=== PATIENT | female | born 1980 | race Caucasian/White ===

== ENCOUNTER 2020-03-27 23:28 | Emergency (ER) | payer BC, OTHER ==
--- OUTSIDE RECORDS SUMMARY | 2020-03-27 23:30 | XMS REPORT | Continuity of Care Document ---
:1980 Author Organization [facility] t Address [address] [place] [address] [place] [id number] Care Team Providers Name Role Phone Unavailable Unavailable Unavailable Problems This patient has no known problems. Allergies, Adverse Reactions, Alerts This patient has no known allergies or adverse reactions. Medications This patient has no known medications. Procedures This patient has no known procedures. Results This patient has no known results.
[2020-03-28 00:06] LABS: Absolute Lymphocytes (CBC) 1.4 K/uL (0.7-4.9); Basophils % 0.9 % (0-1.3); Hematocrit 32.4 % (36.0-45.0); Lymphocytes % 26.8 % (15.3-44.8); MPV 7.5 fL (7.6-11.3); Protime INR 1.1
[2020-03-28 00:23] LABS: ALT/SGPT 40 U/L (12-78); AST/SGOT 31 U/L (15-37); Albumin 3.5 g/dL (3.4-5.0); Alkaline Phosphatase 89 U/L (45-117); BUN Blood Urea Nitrogen 10 mg/dL (7-18); Bicarbonate 22 mmol/L (21-32); Bilirubin Direct 0.3 mg/dL (0-0.2); Bilirubin Total 1.5 mg/dL (0.2-1.0); Glucose Level 98 mg/dL (74-106); Magnesium 1.9 mg/dL (1.8-2.4); NT PRO-BNP 30 pg/mL (<125); Potassium 3.6 mmol/L (3.5-5.1); Protein, Total 7.2 g/dL (6.4-8.2); Sodium Level 138 mmol/L (136-145); Troponin (Emerg Dept Use Only) < 0.02 ng/mL (0.0-0.045)
[2020-03-28 00:58] LABS: Barbiturates NEGATIVE (NEGATIVE); Benzodiazepines NEGATIVE (NEGATIVE); Cocaine NEGATIVE (NEGATIVE); METHAMPHETAM NEGATIVE (NEGATIVE); Methadone NEGATIVE (NEGATIVE); Opiates NEGATIVE (NEGATIVE); Phencyclidine NEGATIVE (NEGATIVE); THC Cannibis NEGATIVE (NEGATIVE)
[2020-03-28 01:17] LABS: Urine Blood NEGATIVE (NEG); Urine Glucose NEGATIVE (NEG); Urine Protein NEGATIVE (NEG); Urine Specific Gravity 1.025 (1.005-1.030)
[2020-03-28] MEDS ORDERED: ONDANSETRON 4 MG/2 ML VIAL ONE (01:22)
[2020-03-28] MEDS ORDERED: ACETAMINOPHEN 500 MG TAB ONE (01:33)
[2020-03-28] MEDS ORDERED: KETOROLAC 30 MG/ML INJ ONE (02:15)
--- NOTE | 2020-03-28 03:28 | EDPHYS ---
Physician Documentation [facility] Name: Nena Peterson Age: 39 yrs Sex: Female : 1980 Arrival Date: 03/27/2020 Time: 23:31 Bed 15 Private MD: ED Physician Jose G Loya HPI: 03/27 23:52 This 39 yrs old Female presents to ER via Ambulatory with complaints of Chest mh7 Pain. 23:52 The patient or guardian reports chest pain that is located primarily in the anterior mh7 chest wall, left. Onset: 1 day(s) ago. 23:53 The pain radiates to the left shoulder, left back. Associated signs and symptoms: mh7 Pertinent positives: palpitations, shortness of breath, Pertinent negatives: abdominal pain, cough, diaphoresis, dizziness, headache, lower extremity pain, lower extremity swelling, lightheadedness, nausea, near syncope, recent travel, syncope, vomiting. The chest pain is described as aching, sharp. Duration: The patient or guardian reports multiple episodes, that are intermittent, that wax and wane, with no pattern. Modifying factors: The symptoms are alleviated by nothing. the symptoms are aggravated by nothing. Severity of pain: At its worst the pain was moderate last night, in the emergency department the pain is unchanged. 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 - Social history:: Smoking status: Patient denies any tobacco usage or history of. Patient uses alcohol, but reports only rare drinking. Patient/guardian denies using street drugs. ROS: 23:53 Constitutional: Negative for fever, chills, and weight loss, Eyes: Negative for injury, mh7 pain, redness, and discharge, ENT: Negative for injury, pain, and discharge, Neck: Negative for injury, pain, and swelling, Abdomen/GI: Negative for abdominal pain, nausea, vomiting, diarrhea, and constipation, : Negative for injury, bleeding, discharge, and swelling, MS/Extremity: Negative for injury and deformity, Skin: Negative for injury, rash, and discoloration, Neuro: Negative for headache, weakness, numbness, tingling, and seizure, Psych: Negative for depression, anxiety, suicide ideation, homicidal ideation, and hallucinations, Allergy/Immunology: Negative for hives, rash, and allergies, Endocrine: Negative for neck swelling, polydipsia, polyuria, polyphagia, and marked weight changes, Hematologic/Lymphatic: Negative for swollen nodes, abnormal bleeding, and unusual bruising. Exam: 23:53 Head/Face: Normocephalic, atraumatic. Eyes: Pupils equal round and reactive to light, mh7 extra-ocular motions intact. Lids and lashes normal. Conjunctiva and sclera are non-icteric and not injected. Cornea within normal limits. Periorbital areas with no swelling, redness, or edema. Neck: Trachea midline, no thyromegaly or masses palpated, and no cervical lymphadenopathy. Supple, full range of motion without nuchal rigidity, or vertebral point tenderness. No Meningismus. Chest/axilla: Normal chest wall appearance and motion. Nontender with no deformity. No lesions are appreciated. Cardiovascular: Regular rate and rhythm with a normal S1 and S2. No gallops, murmurs, or rubs. Normal PMI, no JVD. No pulse deficits. Respiratory: Lungs have equal breath sounds bilaterally, clear to auscultation and percussion. No rales, rhonchi or wheezes noted. No increased work of breathing, no retractions or nasal flaring. Abdomen/GI: Soft, non-tender, with normal bowel sounds. No distension or tympany. No guarding or rebound. No evidence of tenderness throughout. Back: No spinal tenderness. No costovertebral tenderness. Full range of motion. Skin: Warm, dry with normal turgor. Normal color with no rashes, no lesions, and no evidence of cellulitis. MS/ Extremity: Pulses equal, no cyanosis. Neurovascular intact. Full, normal range of motion. Neuro: Awake and alert, GCS 15, oriented to person, place, time, and situation. Cranial nerves II-XII grossly intact. Motor strength 5/5 in all extremities. Sensory grossly intact. Cerebellar exam normal. Normal gait. Psych: Awake, alert, with orientation to person, place and time. Behavior, mood, and affect are within normal limits. 23:53 Constitutional: The patient appears in no acute distress, alert, awake, uncomfortable. 03/28 06:11 ECG was reviewed by the Attending Physician. [facility] Vital Signs: 03/27 23:39 BP 175 / 86; Pulse 99; Resp 16 S; Temp 99.9(O); Pulse Ox 99% on R/A; Weight 149.69 kg bb (R); Height 5 ft. 6 in. (167.64 cm) (R); Pain 5/10; 03/28 01:19 BP 152 / 82; Pulse 86; Resp 18; Pulse Ox 99% on R/A; mg2 02:10 BP 132 / 56; Pulse 81; Resp 18; Pulse Ox 100% on R/A; mg2 03:16 BP 125 / 46; Pulse 77; Resp 18; Pulse Ox 99% on R/A; mg2 03/27 23:39 Body Mass Index 53.26 (149.69 kg, 167.64 cm) bb MDM: 03/27 23:50 Patient medically screened. [facility] 03/28 03:25 Differential diagnosis: acute myocardial infarction, acute pericarditis, anxiety, [facility] coronary artery disease chest wall pain, costochondritis, esophagitis, myocarditis, pericarditis, pleurisy, pneumonia, pneumothorax, pulmonary embolus. HEART Score: History: Slightly Suspicious (0), ECG: Non specific repolarization disturbance / LBTB / PM (1), Age: < or = 45 years (0), Risk Factors: 1 or 2 risk factors (1), [Obesity] Troponin: < or = 1 x Normal Limit (0), Total Score = 2. Data reviewed: vital signs, nurses notes, lab test result(s), cardiac enzymes, CBC, electrolytes, urinalysis, EKG, radiologic studies, CT scan, plain films. Data interpreted: Pulse oximetry: on room air is 99 %. Interpretation: normal. Counseling: I had a detailed discussion with the patient and/or guardian regarding: the historical points, exam findings, and any diagnostic results supporting the discharge/admit diagnosis, lab results, radiology results, the need for outpatient follow up, to return to the emergency department if symptoms worsen or persist or if there are any questions or concerns that arise at home. Response to treatment: the patient's symptoms have resolved after treatment, the patient's blood pressure is in an acceptable range, mental status has returned to baseline, the patient no longer shows bradycardia, the patient is not short of breath, the patient is not tachycardic, the patient's pain is gone, the patient's temperature has normalized. 03/27 23:51 Order name: Basic Metabolic Panel; Complete Time: 00:24 [facility] 03/27 23:51 Order name: CBC with Diff; Complete Time: 00:14 [facility] 03/27 23:51 Order name: LFT's; Complete Time: 00:24 [facility] 03/27 23:51 Order name: Magnesium; Complete Time: 00:24 [facility] 03/27 23:51 Order name: NT PRO-BNP; Complete Time: 00:24 [facility] 03/27 23:51 Order name: PT-INR; Complete Time: 00:14 [facility] 03/27 23:51 Order name: Troponin (emerg Dept Use Only); Complete Time: 00:24 [facility] 03/27 23:51 Order name: XRAY Chest (1 view) 03/28 00:15 Order name: UDS; Complete Time: 01:07 [facility] 03/28 00:24 Order name: CT Chest For PE Angio [facility] 03/28 00:42 Order name: Urine --Ancillary (enter results); Complete Time: 01:29 03/28 00:42 Order name: Urine Dipstick--Ancillary (enter results); Complete Time: 01:29 03/28 02:02 Order name: Troponin (emerg Dept Use Only): repeat ; Complete Time: 03:22 mg2 03/27 23:51 Order name: EKG; Complete Time: 23:52 [facility] 03/27 23:51 Order name: Cardiac monitoring; Complete Time: 23:53 [facility] 03/27 23:51 Order name: EKG - Nurse/Tech; Complete Time: 23:53 [facility] 03/27 23:51 Order name: IV Saline Lock; Complete Time: 23:53 [facility] 03/27 23:51 Order name: Labs collected and sent; Complete Time: 23:53 [facility] 03/27 23:51 Order name: O2 Per Protocol; Complete Time: 23:53 [facility] 03/27 23:51 Order name: O2 Sat Monitoring; Complete Time: 00:35 mh7 03/27 23:51 Order name: Urine Dipstick-Ancillary (obtain specimen); Complete Time: 00:41 mh7 03/27 23:51 Order name: Urine Test (obtain specimen); Complete Time: 00:41 mh7 EC:11 Rate is 96 beats/min. Rhythm is regular, Normal Sinus Rhythm. QRS [place] is Normal. MS mh7 interval is normal. QRS interval is normal. QT interval is normal. No Q waves. T waves are Normal. No ST changes noted. Clinical impression: NSR w/ Non-specific ST/T Changes. Administered Medications: 00:00 Not Given (patienthad itchiness with this medicine before): morphine 2 mg IVP once; mg2 (PAIN>8) RASS on ADMN: Combtv4, Very Agttd3, Agttd2, Rstlss1, AlertClm0, Drwsy-1, LtSdtn-2, ModSdtn-3, DpSdtn-4, UnArsble-5 x2 00:00 Not Given (Physician Discretion): Zofran (Ondansetron) 4 mg IVP once; over 2 minutes mg2 01:14 Drug: Zofran (Ondansetron) 4 mg Route: IVP; Site: right forearm; mg2 03:16 Follow up: Response: No adverse reaction mg2 01:30 Drug: Tylenol 1000 mg Route: PO; mg2 03:16 Follow up: Response: No adverse reaction mg2 02:07 Drug: TORadol 30 mg Route: IVP; Site: right forearm; mg2 03:16 Follow up: Response: No adverse reaction mg2 Disposition: 03/28/20 03:28 Discharged to Home. Impression: Chest pain, unspecified, Musculoskeletal Pain. - Condition is Stable. - Discharge Instructions: Chest Wall Pain, Rpfm-[id number], Nonspecific Chest Pain, [id number]. - Prescriptions for Ibuprofen 800 mg Oral Tablet - take 1 tablet by ORAL route every 8 hours As needed take with food; 15 tablet. Robaxin 500 mg Oral Tablet - take 2 tablets by ORAL route every 6 hours As needed; 24 tablet. - Medication Reconciliation Form, Thank You Letter, Antibiotic Education, Prescription Opioid Use form. - Follow up: Private Physician; When: 1 - 2 days; Reason: Worsening of condition, Recheck today's complaints, Continuance of care, Re-evaluation by your physician. - Problem is new. - Symptoms have improved. Signatures: Dispatcher [employer] EDMS Jolynn Carbajal RN RN bb Jacob Sow, PLAN CONSULTANT-C PLAN CONSULTANT-Cla1 Gaurav Gimenez RN RN mg2 Jose G Loya MD MD mh7 Corrections: (The following items were deleted from the chart) 03:42 03:28 03/28/2020 03:28 Discharged to Home. Impression: Chest pain, unspecified; mg2 Musculoskeletal Pain. Condition is Stable. Forms are Medication Reconciliation Form, Thank You Letter, Antibiotic Education, Prescription Opioid Use. Follow up: Private Physician; When: 1 - 2 days; Reason: Worsening of condition, Recheck today's complaints, Continuance of care, Re-evaluation by your physician. Problem is new. Symptoms have improved. mh7
--- NOTE | 2020-03-28 03:28 | ER ---
Nurse's Notes [facility] Name: Nena Peterson Age: 39 yrs Sex: Female : 1980 Arrival Date: 03/27/2020 Time: 23:31 Bed 15 Private MD: Diagnosis: Chest pain, unspecified;Musculoskeletal Pain Presentation: 03/27 23:39 Chief complaint: Patient states: she is having chest pain for the last one to two days bb the pain is constant and intermittent goes to her shoulder and her back and she is having intermittent shortness of breath. Coronavirus screen: At this time, the client does not indicate any symptoms associated with coronavirus-19. Ebola Screen: No symptoms or risks identified at this time. Initial Sepsis Screen: Does the patient meet any 2 criteria? No. Patient's initial sepsis screen is negative. Does the patient have a suspected source of infection? No. Patient's initial sepsis screen is negative. Risk Assessment: Do you want to hurt yourself or someone else? Patient reports no desire to harm self or others. Onset of symptoms was March 25, 2020. 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 - Social history:: Smoking status: Patient denies any tobacco usage or history of. Patient uses alcohol, but reports only rare drinking. Patient/guardian denies using street drugs. Screenin:58 Abuse screen: Denies threats or abuse. Denies injuries from another. Nutritional mg2 screening: No deficits noted. Tuberculosis screening: No symptoms or risk factors identified. Fall Risk IV access (20 points). Assessment: 23:58 General: Appears in no apparent distress. comfortable, Behavior is calm, cooperative. mg2 Pain: Complains of pain in chest Pain radiates to left arm Pain began gradually, 1 day ago. Neuro: Level of Consciousness is awake, alert, obeys commands, Oriented to person, place, time, situation. Cardiovascular: Capillary refill < 3 seconds Patient's skin is warm and dry. Respiratory: Airway is patent Respiratory effort is even, unlabored, Respiratory pattern is regular, symmetrical. GI: No signs and/or symptoms were reported involving the gastrointestinal system. : No signs and/or symptoms were reported regarding the genitourinary system. EENT: No signs and/or symptoms were reported regarding the EENT system. Derm: Skin is intact, is healthy with good turgor, Skin is pink, warm \T\ dry. normal. Musculoskeletal: Circulation, motion, and sensation intact. Capillary refill < 3 seconds. 03/28 00:47 Reassessment: patient in CT now. mg2 01:19 Reassessment: patient complains of headache. mg2 02:10 Reassessment: patient informed about the need for repeat Trop and she agreed. mg2 Vital Signs: 03/27 23:39 BP 175 / 86; Pulse 99; Resp 16 S; Temp 99.9(O); Pulse Ox 99% on R/A; Weight 149.69 kg bb (R); Height 5 ft. 6 in. (167.64 cm) (R); Pain 5/10; 03/28 01:19 BP 152 / 82; Pulse 86; Resp 18; Pulse Ox 99% on R/A; mg2 02:10 BP 132 / 56; Pulse 81; Resp 18; Pulse Ox 100% on R/A; mg2 03:16 BP 125 / 46; Pulse 77; Resp 18; Pulse Ox 99% on R/A; mg2 03/27 23:39 Body Mass Index 53.26 (149.69 kg, 167.64 cm) bb ED Course: 03/27 23:31 Patient arrived in ED. cl3 23:33 Gaurav Gimenez, LISA is Primary Nurse. mg2 23:35 Jose G Loya MD is Attending Physician. mh7 23:41 Triage completed. bb 23:42 Arm band placed on Patient placed in an exam room, on a stretcher, on cardiac nurse practitioner, bb on pulse oximetry. EKG completed in triage. Results shown to MD. 23:50 No provider procedures requiring assistance completed. Inserted saline lock: 20 gauge mg2 in right forearm, using aseptic technique. Blood collected. 23:59 Patient has correct armband on for positive identification. compliance monitor on. Pulse mg2 ox on. NIBP on. 0916 00:07 XRAY Chest (1 view) In Process Unspecified. EDMS 01:12 CT Chest For PE Angio In Process Unspecified. EDMS 01:19 Patient maintains SpO2 saturation greater than 95% on room air. mg2 03:41 IV discontinued, intact, bleeding controlled, No redness/swelling at site. Pressure mg2 dressing applied. Administered Medications: 00:00 Not Given (patienthad itchiness with this medicine before): morphine 2 mg IVP once; mg2 (PAIN>8) RASS on ADMN: Combtv4, Very Agttd3, Agttd2, Rstlss1, AlertClm0, Drwsy-1, LtSdtn-2, ModSdtn-3, DpSdtn-4, UnArsble-5 x2 00:00 Not Given (Physician Discretion): Zofran (Ondansetron) 4 mg IVP once; over 2 minutes mg2 01:14 Drug: Zofran (Ondansetron) 4 mg Route: IVP; Site: right forearm; mg2 03:16 Follow up: Response: No adverse reaction mg2 01:30 Drug: Tylenol 1000 mg Route: PO; mg2 03:16 Follow up: Response: No adverse reaction mg2 02:07 Drug: TORadol 30 mg Route: IVP; Site: right forearm; mg2 03:16 Follow up: Response: No adverse reaction mg2 Outcome: 03:28 Discharge ordered by . noelle 03:41 Discharged to home ambulatory. mg2 03:41 Condition: stable 03:41 Discharge instructions given to patient, Instructed on discharge instructions, follow up and referral plans. medication usage, Demonstrated understanding of instructions, follow-up care, medications, Prescriptions given X 2. 03:42 Patient left the ED. mg2 Signatures: Dispatcher [employer] EDMS Jolynn Carbajal RN RN bb Gaurav Gimenez RN RN mg2 [place]3 Jose G Loya MD MD Rob
[2020-03-28 03:50] VITALS: TEMP 99.9
[2020-03-28 03:53] VITALS: BP 125/46; O2SAT 99
--- NOTE | 2020-03-28 05:50 | EKG ---
Test Date: 2020-03-27 Test Time: 23:40:14 Section Leader And Machine Setter: LYNDSEY MEASUREMENT RESULTS: Intervals: Rate: 96 DE: 158 QRSD: 84 QT: 346 QTc: 437 [place]: P: 50 DE: 158 QRS: 48 T: 5 INTERPRETIVE STATEMENTS: Normal sinus rhythm ST abnormality, possible digitalis effect Abnormal ECG No previous ECG available for comparison Electronically Signed On 03-28-20 05:50:00 CDT by Marcos Drake
--- NOTE | 2020-03-28 08:42 | RAD REPORT ---
EXAM DESCRIPTION: RAD - Chest Single View - 03/28/2020 12:07 am CLINICAL HISTORY: CHEST PAIN Chest pain. COMPARISON: Chest For Pe Angio dated 03/28/2020 FINDINGS: Portable technique limits examination quality. The lungs are grossly clear. The heart is normal in size. No displaced fractures. IMPRESSION: No acute intrathoracic process suspected.
--- NOTE | 2020-03-28 14:45 | RAD REPORT ---
EXAM DESCRIPTION: CTA CHEST WITH CONTRAST CLINICAL HISTORY: CHEST PAIN COMPARISON: None. TECHNIQUE: Axial CT imaging of the thorax utilizing intravenous contrast. Reformatted multiplanar im ages obtained including reconstructed maximum intensity projection images. This exam was performed according to our departmental dose-optimization program which includes automa karie exposure control, adjustment of the mA and/or kV according to patient size and/or use of iterativ e reconstruction technique FINDINGS: PULMONARY ARTERIES: Normal caliber main pulmonary artery. There is no filling defect with in the central or peripheral pulmonary arteries. HEART/GREAT VESSELS: Heart is minimally enlarged. No pericardial fluid. Normal caliber thoracic aort a. Bovine branch pattern of the arch vessels. MEDIASTINUM/ALAN: No adenopathy. Normal central airways. Normal esophagus. LUNGS/PLEURA: Lungs are clear. No pneumothorax or pleural fluid. No consolidation. No pulmonary josiah a. CHEST WALL/SOFT TISSUES: Unremarkable thyroid. There is no axillary adenopathy. Intact sternum. Mild thoracic spondylosis. Remaining bony thorax is unremarkable. UPPER ABDOMEN: The liver is mildly decreased in attenuation due to fatty infiltration. The gallbladd er appears normal. The spleen is enlarged to 14.8 cm. Normal pancreas, adrenal glands, imaged left ki dney. Included bowel appears normal. IMPRESSION: 1. No pulmonary embolism. No acute cardiopulmonary finding. 2. Fatty liver infiltration. 3. Mild splenomegaly. Electronically signed by: Stephanie Ladd DO 03/28/2020 1:31 AM CDT Due to temporary technical issues with the PACS/Fluency reporting system, reports are being signed by the in house radiologist without review as a courtesy to ensure prompt reporting. The interpreting r adiologist is fully responsible for the content of the report.
== END 2020-03-28 03:42 | disposition home or self-care (01) ==
LOC: ER 23:28
DX: M79.18 Myalgia, other site (principal); Z88.5 Allergy status to narcotic agent; Z91.040 Latex allergy status; Z91.048 Other nonmedicinal substance allergy status
CPT/HCPCS: 93005; 85025; 80048; 36415; 83735; 81025; 85610; 80076; 80307 ×8; 81003; 84484 ×2; 83880; 71275; 71045; 96375; 96374; 99285; Q9967; J2405

== ENCOUNTER 2022-11-23 01:18 | Emergency (ER) | payer BC ==
--- OUTSIDE RECORDS SUMMARY | 2022-11-23 01:24 | XMS REPORT | Continuity of Care Document ---
:1980 Author Organization [facility] t Address [address] [place] [place] [address] Care Team Providers Name Role Phone ROXANNE HOOD Primary Care Physician Unavailable PRIMITIVO BRYAN Attending Clinician Unavailable Ebrahim CABIN CLEANING SUPERVISORPrimitivo Attending Clinician Unknown, Attending Attending Clinician Unavailable Doctor Unassigned, [place] Attending Clinician Unavailable LILIANE JACOBSEN Attending Clinician Unavailable Liliane Jacobsen MD Attending Clinician Roxanne Hood NP Attending Clinician 2, [facility] Attending Clinician Unavailable ROXANNE HOOD Attending Clinician Unavailable RADIOLOGY Attending Clinician Unavailable Radiology Attending Clinician Unavailable CRUZ CHEUNG Attending Clinician Unavailable Roddy CABIN CLEANING SUPERVISORCruz Giles Attending Clinician Only, Ang Db Test Attending Clinician Unavailable Fanta Reilly RN Attending Clinician Unavailable DARRELL EARL Attending Clinician Unavailable Darrell Dia Attending Clinician [facility] Neurology Continuity Attending Clinician Unavail able DILIP ACOSTA Attending Clinician Unavailable 2, [facility] [employer] Attending Clinician Unavailable Dinorah Cheung PA-C Attending Clinician DINORAH CHEUNG Attending Clinician Unavailable PORFIRIO MITCHELL Attending Clinician Unavailable Hussein STEVENS, Nena Attending Clinician King GLYNN MD, Jonathan Lagos Attending Clinician NENA SAVAGE Attending Clinician Unavailable Provider, [facility] Attending Clinician Unavailable Lab, [facility] Fam Pob I Attending Clinician Unavailable ADOLPH CEJA Admitting Clinician Unavailable Payers Payer Name Policy Type Policy Number Effective Date Expiration Date S ourarnold [employer] [place] [id number] 2020 00:00:00 Problems Condition Condition Condition Status Onset Resolution Last Treating Co mments Source Name Details Category Date Date Treatment Clinician Date Acute pain Acute pain Disease Active 2021-07 U nivers of left of left 2-06 ity of shoulder shoulder 00:00: 00 Medical Branch Right Right Disease Active 2021-07 Univers elbow pain elbow pain 2-06 it y of 00:00: [place] 00 Medical Branch Left arm Left arm Disease Active 2021-07 Unive rs pain pain 2-06 ity of 00:00: [place] 00 Medical Branch Chronic Chronic Disease Active Univers midline midline 8-19 ity of low back low back 00:00: [place] pain pain 00 Medical without without Branch sciatica sciatica Other iron Other iron Disease Active U nivers deficiency deficiency 8-19 it y of anemia anemia 00:00: 00 Medical Branch Encounter Encounter Disease Active Uni vers for for 5-20 [place] of screening [place] 00 [facility] yvon for for Branch malignant malignant neoplasm neoplasm of breast of breast Screening Screening Disease Active Uni vers for for 5-20 it[place] of malignant malignant 00:[place] ne[place] 00 Medica l of the of the Branch cervix cervix Acute Acute Disease Active Univers diffuse diffuse 4-13 ity of otitis otitis 00:00: [place] externa of externa of 00 Me dical both ears both ears Bran ch Bilateral Bilateral Disease Active Uni vers lower lower 4-13 ity of extremity extremity 00:00[place] edema edema 00 [facility] Mild Mild Disease Active Univers anxiety anxiety 3-29 ity of 00:00: [place] 00 Medical Branch Severe Severe Disease Active Univers obesity obesity 3-29 ity of (BMI >= (BMI >= 00:00: [place] 40) 40) 00 Medical Branch Cervicalgi Cervicalgi Disease Active U nivers a a 3-29 ity of 00:00: Medical Branch Vertigo Vertigo Disease Active Univers 3-29 ity of 00:00: Medical Branch Fatigue, Fatigue, Disease Active Unive rs unspecifie unspecifie 329 it y of d type d type 00:00: Medical Branch Migraine Migraine Disease Active Unive rs without without 3-29 ity of aura and aura and 00:00: [place] without without 00 Medical status status Branch migrainosu migrainosu s, not s, not intractabl intractabl e e Essential Essential Disease Active Uni vers hypertensi hypertensi 3 it y of on on 00:00: Medical Branch Attention Attention Disease Active Uni vers deficit deficit 3 ity of hyperactiv hyperactiv 00:00: [place] ity 00 Medical disorder disorder Branch (ADHD), (ADHD), combined combined type type Anxiety Anxiety Disease Active Univers and and 3 ity of depression depression 00:00: [place] [facility] Vitamin D Vitamin D Disease Active Uni vers deficiency deficiency 10-08 it y of 00:00: Medical Branch Other Other Disease Active Univers specified specified 3- ity of nutritiona nutritiona 00:00: [place] anemias l anemias [facility] Branch Back pain Back pain Disease Active Uni vers without without 8-24 ity of radiation radiation 00:00: [place] [facility] [place] Chronic Chronic Disease Active [facility] pain pain 7-13 ity of disorder disorder 00:00: Medical Branch Allergies, Adverse Reactions, Alerts Allergy Allergy Status Severity Reaction(s) Onset Inactive Treating Comm ents Source Name Type Date Date Clinician ADHESIVE Drug Active Rash Univers Class 8- ity of 00:00: [place] 00 Medical Branch LATEX DRUG Active Hives Univers INGREDI 8- ity of 00:00: Medical Branch Adhesive Propensi Active Rash Univer s ty to 03-12 ity of adverse 00:00: [place] reaction 00 Medical s Branch Latex Propensi Active Hives 2016- Univers ty to 831 ity of adverse 00:00: [place] reaction Medical s Branch Adhesive Propensi Active Rash 2016-0 Univer s ty to 831 ity of adverse 00:00: [place] reaction 00 Medical s Branch LATEX, Drug Active Low Rash Univers NATURAL Class 6-05 ity of RUBBER 00:00: [place] 00 Medical Branch Latex, Propensi Active Rash 2015- Univers Natural ty to 6-05 ity of Rubber adverse 00:00: [place] reaction 00 Medical s Branch Social History Social Habit Start Date Stop Date Quantity Comments Source Exposure to 2022-10-26 2022-11-05 Not sure [facility] SARS-CoV-2 00:00:00 14:03:00 [place] [facility] (event) Branch Alcohol intake 2022-10-21 2022-10-21 Ex-drinker [facility] 00:00:00 00:00:00 (finding) [facility] Tobacco use and 2022-02-28 2022-02-28 Smokeless tobacco Un iversity of exposure 00:00:00 00:00:00 non-user [place] [facility] Branch History SDOH 2021-09-18 2021-09-18 2 University o f Alcohol Frequency 00:00:00 00:00:00 [place] M edical Branch History SDOH 2021-09-18 2021-09-18 1 University o f Alcohol Std 00:00:00 00:00:00 [place] Medical Drinks Branch History SDMA 2021-09-18 2021-09-18 1 University o f Alcohol Binge 00:00:00 00:00:00 [place] Medic al Branch Alcohol Comment 2017-04-30 2017-04-30 Occasional Universit y of 00:00:00 00:00:00 Drinker [facility] Sex [birth year] At [birth year] Universit y of 00:00:00 00:00:00 [facility] Smoking Status Start Date Stop Date Source Never smoked tobacco [facility] Medications Ordered Filled Start Stop Current Ordering Indication Dosage Frequency Signature Comments Components Source Medication Medication Date Date Medication? Clinician (SIG) Name Name amoxicillin 2022- Yes [id number] 875mg Take 1 Univers 875 mg 11-05 tablet by ity of tablet 00:00: 04:59 mouth in [place] 00 :00 the Medical morning Branch and 1 tablet in the evening. Do all this for 10 days. lisdexamfet 2023-0 Yes [id number] 10mg Take 10 mg Univers amine 4-11 by mouth ity of (VYVANSE) 00:00: every [place] 10 mg Cap 00 morning. Medica l Branch lisdexamfet 3-0 Yes [id number] 10mg Take 10 mg Univers amine 4-11 by mouth ity of (VYVANSE) 00:00: every [place] 10 mg Cap 00 morning. Medica l Branch lisdexamfet 3-0 Yes [id number] 10mg Take 10 mg Univers amine 4-11 by mouth ity of (VYVANSE) 00:00: every [place] 10 mg Cap 00 morning. Medica l Branch calcium 2022-0 Yes [id number] 1{tbl} Take 1 Un ren carbonate 2-02 tablet by ity o f (CALCIUM 00:00: mouth in [place] 500) 500 mg 00 the Medical calcium morning. Branch (1,250 mg) chewable tablet ergocalcife 2023-0 Yes [id number] Take 1 Univers rol, 2-02 capsule by ity of vitamin d2, 00:00: mouth [place] 1,250 mcg 00 weekly. Medical (50,000 Branch unit) capsule dextroamphe 2023-0 Yes [id number] 20mg Take 1 Univers tamine-amph 2-02 tablet by ity of etamine 20 00:00: mouth in [place] mg tablet 00 the Medical morning. Branch calcium 2022-0 Yes [id number] 1{tbl} Take 1 Un ren carbonate 2-02 tablet by ity o f (CALCIUM 00:00: mouth in [place] 500) 500 mg 00 the Medical calcium morning. Branch (1,250 mg) chewable tablet ergocalcife 2023-0 Yes [id number] Take 1 Univers rol, 2-02 capsule by ity of vitamin d2, 00:00: mouth [place] 1,250 mcg 00 weekly. Medical (50,000 Branch unit) capsule dextroamphe 2023-0 Yes [id number] 20mg Take 1 Univers tamine-amph 2-02 tablet by ity of etamine 20 00:00: mouth in [place] mg tablet 00 the Medical morning. Branch calcium 2023-0 Yes [id number] 1{tbl} Take 1 Un ren carbonate 2-02 tablet by ity o f (CALCIUM 00:00: mouth in [place] 500) 500 mg 00 the Medical calcium morning. Branch (1,250 mg) chewable tablet ergocalcife 2023-0 Yes [id number] Take 1 Univers rol, 2-02 capsule by ity of vitamin d2, 00:00: mouth [place] 1,250 mcg 00 weekly. Medical (50,000 Branch unit) capsule calcium 2023-0 Yes [id number] 1{tbl} Take 1 Un ren carbonate 2-02 tablet by ity o f (CALCIUM 00:00: mouth in [place] 500) 500 mg 00 the Medical calcium morning. Branch (1,250 mg) chewable tablet ergocalcife 2023-0 Yes [id number] Take 1 Univers rol, 2-02 capsule by ity of vitamin d2, 00:00: mouth [place] 1,250 mcg 00 weekly. Medical (50,000 Branch unit) capsule calcium 2023-0 Yes [id number] 1{tbl} Take 1 Un ren carbonate 2-02 tablet by ity o f (CALCIUM 00:00: mouth in [place] 500) 500 mg 00 the Medical calcium morning. Branch (1,250 mg) chewable tablet ergocalcife 2023-0 Yes [id number] Take 1 Univers rol, 2-02 capsule by ity of vitamin d2, 00:00: mouth [place] 1,250 mcg 00 weekly. Medical (50,000 Branch unit) capsule calcium 2023-0 Yes [id number] 1{tbl} Take 1 Un ren carbonate 2-02 tablet by ity o f (CALCIUM 00:00: mouth in [place] 500) 500 mg 00 the Medical calcium morning. Branch (1,250 mg) chewable tablet ergocalcife 2023-0 Yes [id number] Take 1 Univers rol, 2-02 capsule by ity of vitamin d2, 00:00: mouth [place] 1,250 mcg 00 weekly. Medical (50,000 Branch unit) capsule calcium 2023-0 Yes [id number] 1{tbl} Take 1 Un ren carbonate 2-02 tablet by ity o f (CALCIUM 00:00: mouth in [place] 500) 500 mg 00 the Medical calcium morning. Branch (1,250 mg) chewable tablet ergocalcife 2023-0 Yes [id number] Take 1 Univers rol, 2-02 capsule by ity of vitamin d2, 00:00: mouth [place] 1,250 mcg 00 weekly. Medical (50,000 Branch unit) capsule calcium 2022-0 Yes [id number] 1{tbl} Take 1 Un ren carbonate 2-02 tablet by ity o f (CALCIUM 00:00: mouth in [place] 500) 500 mg 00 the Medical calcium morning. Branch (1,250 mg) chewable tablet ergocalcife 2022-0 Yes [id number] Take 1 Univers rol, 2-02 capsule by ity of vitamin d2, 00:00: mouth [place] 1,250 mcg 00 weekly. Medical (50,000 Branch unit) capsule dextroamphe 2022- No [id number] 20mg Take 1 Univers tamine-amph 08-14 tablet by it y of etamine 20 00:00: 00:00 mouth in [place] mg tablet 00 :00 the Medical morning. Branch dextroamphe 2022- No [id number] 20mg Take 1 Univers tamine-amph 08-14 tablet by it y of etamine 20 00:00: 00:00 mouth in [place] mg tablet 00 :00 the Medical morning. Branch dextroamphe 2022- No [id number] 20mg Take 1 Univers tamine-amph 08-14 tablet by it y of etamine 20 00:00: 00:00 mouth in [place] mg tablet 00 :00 the Medical morning. Branch dextroamphe 2022- No [id number] 20mg Take 1 Univers tamine-amph 08-14 tablet by it y of etamine 20 00:00: 00:00 mouth in [place] mg tablet 00 :00 the Medical morning. Branch lidocaine 2021-07 Yes [id number] 2g Apply 2 g Univers HCL 4 % 2-14 to area(s) ity of Oint 00:00: 2 (two) [place] 00 times Medical daily as Branch needed (Apply 2g to affected areas PRN). lidocaine 2021-07 Yes [id number] 2g Apply 2 g Univers HCL 4 % 2-14 to area(s) ity of Oint 00:00: 2 (two) [place] 00 times Medical daily as Branch needed (Apply 2g to affected areas PRN). lidocaine 2021-07 Yes [id number] 2g Apply 2 g Univers HCL 4 % 2-14 to area(s) ity of Oint 00:00: 2 (two) [place] 00 times Medical daily as Branch needed (Apply 2g to affected areas PRN). lidocaine 2021-07 Yes [id number] 2g Apply 2 g Univers HCL 4 % 2-14 to area(s) ity of Oint 00:00: 2 (two) [place] 00 times Medical daily as Branch needed (Apply 2g to affected areas PRN). lidocaine 2021-07 Yes [id number] 2g Apply 2 g Univers HCL 4 % 2-14 to area(s) ity of Oint 00:00: 2 (two) [place] 00 times Medical daily as Branch needed (Apply 2g to affected areas PRN). lidocaine 2021-07 Yes [id number] 2g Apply 2 g Univers HCL 4 % 2-14 to area(s) ity of Oint 00:00: 2 (two) [place] 00 times Medical daily as Branch needed (Apply 2g to affected areas PRN). lidocaine 2021-07 Yes [id number] 2g Apply 2 g Univers HCL 4 % 2-14 to area(s) ity of Oint 00:00: 2 (two) [place] 00 times Medical daily as Branch needed (Apply 2g to affected areas PRN). lidocaine 2021-07 Yes [id number] 2g Apply 2 g Univers HCL 4 % 2-14 to area(s) ity of Oint 00:00: 2 (two) [place] 00 times Medical daily as Branch needed (Apply 2g to affected areas PRN). lidocaine 2021-07 Yes [id number] 2g Apply 2 g Univers HCL 4 % 2-14 to area(s) ity of Oint 00:00: 2 (two) [place] 00 times Medical daily as Branch needed (Apply 2g to affected areas PRN). dextroamphe 2021-07 Yes [id number] 20mg Take 1 Univers tamine-amph 2-06 tablet by ity of etamine 20 00:00: mouth in [place] mg tablet 00 the Medical morning. Branch furosemide 2021-07 Yes [id number] 20mg Take 1 Univers 20 mg 2-06 tablet by ity of tablet 00:00: mouth once [place] 00 daily as Medical needed Branch (qDay PRN Bilateral Low Extremity Edema). lisinopriL- 2021-07 Yes [id number] .5{tbl} Take 0.5 Univers hydrochloro 2-06 tablets by it y of thiazide 00:00: mouth in [place] 10-12.5 mg 00 the Medical per tablet morning. Bran h Lidocaine 2021-07 Yes [id number] Apply to Univers % cream 2-06 area(s) 2 ity of 00:00: (two) [place] 00 times Medical daily as Branch needed for Pain (scale 4-6). Apply 5g to affected areas BID PRN dextroamphe 2021-07 Yes [id number] 20mg Take 1 Univers tamine-amph 2-06 tablet by ity of etamine 20 00:00: mouth in [place] mg tablet 00 the Medical morning. Branch furosemide 2021-07 Yes [id number] 20mg Take 1 Univers 20 mg 2-06 tablet by ity of tablet 00:00: mouth once [place] 00 daily as Medical needed Branch (qDay PRN Bilateral Low Extremity Edema). lisinopriL- 2021-07 Yes [id number] .5{tbl} Take 0.5 Univers hydrochloro 2-06 tablets by it y of thiazide 00:00: mouth in [place] 10-12.5 mg 00 the Medical per tablet morning. Bran h Lidocaine 2021-07 Yes [id number] Apply to Univers % cream 2-06 area(s) 2 ity of 00:00: (two) [place] 00 times Medical daily as Branch needed for Pain (scale 4-6). Apply 5g to affected areas BID PRN dextroamphe 2021-07 Yes [id number] 20mg Take 1 Univers tamine-amph 2-06 tablet by ity of etamine 20 00:00: mouth in [place] mg tablet 00 the Medical morning. Branch furosemide 2021-07 Yes [id number] 20mg Take 1 Univers 20 mg 2-06 tablet by ity of tablet 00:00: mouth once [place] 00 daily as Medical needed Branch (qDay PRN Bilateral Low Extremity Edema). lisinopriL- 2021-07 Yes [id number] .5{tbl} Take 0.5 Univers hydrochloro 2-06 tablets by it y of thiazide 00:00: mouth in [place] 10-12.5 mg 00 the Medical per tablet morning. Bran h Lidocaine 5 2021-07 Yes [id number] Apply to Univers % cream 2-06 area(s) 2 ity of 00:00: (two) [place] 00 times Medical daily as Branch needed for Pain (scale 4-6). Apply 5g to affected areas BID PRN dextroamphe 2021-07 Yes [id number] 20mg Take 1 Univers tamine-amph 2-06 tablet by ity of etamine 20 00:00: mouth in [place] mg tablet 00 the Medical morning. Branch furosemide 2021-07 Yes [id number] 20mg Take 1 Univers 20 mg 2-06 tablet by ity of tablet 00:00: mouth once [place] 00 daily as Medical needed Branch (qDay PRN Bilateral Low Extremity Edema). lisinopriL- 2021-07 Yes [id number] .5{tbl} Take 0.5 Univers hydrochloro 2-06 tablets by it y of thiazide 00:00: mouth in [place] 10-12.5 mg 00 the Medical per tablet morning. [facility] furosemide 2021-07 Yes [id number] 20mg Take 1 Univers 20 mg 2-06 tablet by ity of tablet 00:00: mouth once [place] 00 daily as Medical needed Branch (qDay PRN Bilateral Low Extremity Edema). lisinopriL- 2021-07 Yes [id number] .5{tbl} Take 0.5 Univers hydrochloro 2-06 tablets by it y of thiazide 00:00: mouth in [place] 10-12.5 mg 00 the Medical per tablet morning. [facility] furosemide 2021-07 Yes [id number] 20mg Take 1 Univers 20 mg 2-06 tablet by ity of tablet 00:00: mouth once [place] 00 daily as Medical needed Branch (qDay PRN Bilateral Low Extremity Edema). lisinopriL- 2021-07 Yes [id number] .5{tbl} Take 0.5 Univers hydrochloro 2-06 tablets by it y of thiazide 00:00: mouth in [place] 10-12.5 mg 00 the Medical per tablet morning. [facility] furosemide 2021-07 Yes [id number] 20mg Take 1 Univers 20 mg 2-06 tablet by ity of tablet 00:00: mouth once [place] 00 daily as Medical needed Branch (qDay PRN Bilateral Low Extremity Edema). lisinopriL- 2021-07 Yes [id number] .5{tbl} Take 0.5 Univers hydrochloro 2-06 tablets by it y of thiazide 00:00: mouth in [place] 10-12.5 mg 00 the Medical per tablet morning. [facility] furosemide 2021-07 Yes [id number] 20mg Take 1 Univers 20 mg 2-06 tablet by ity of tablet 00:00: mouth once [place] 00 daily as Medical needed Branch (qDay PRN Bilateral Low Extremity Edema). lisinopriL- 2021-07 Yes [id number] .5{tbl} Take 0.5 Univers hydrochloro 2-06 tablets by it y of thiazide 00:00: mouth in [place] 10-12.5 mg 00 the Medical per tablet morning. [facility] furosemide 2021-07 Yes [id number] 20mg Take 1 Univers 20 mg 2-06 tablet by ity of tablet 00:00: mouth once [place] 00 daily as Medical needed Branch (qDay PRN Bilateral Low Extremity Edema). lisinopriL- 2021-07 Yes [id number] .5{tbl} Take 0.5 Univers hydrochloro 2-06 tablets by it y of thiazide 00:00: mouth in [place] 10-12.5 mg 00 the Medical per tablet morning. [facility] furosemide 2021-07 Yes [id number] 20mg Take 1 Univers 20 mg 2-06 tablet by ity of tablet 00:00: mouth once [place] 00 daily as Medical needed Branch (qDay PRN Bilateral Low Extremity Edema). lisinopriL- 2021-07 Yes [id number] .5{tbl} Take 0.5 Univers hydrochloro 2-06 tablets by it y of thiazide 00:00: mouth in [place] 10-12.5 mg 00 the Medical per tablet morning. [facility] furosemide 2021-07 Yes [id number] 20mg Take 1 Univers 20 mg 2-06 tablet by ity of tablet 00:00: mouth once [place] 00 daily as Medical needed Branch (qDay PRN Bilateral Low Extremity Edema). lisinopriL- 2021-07 Yes [id number] .5{tbl} Take 0.5 Univers hydrochloro 2-06 tablets by it y of thiazide 00:00: mouth in [place] 10-12.5 mg 00 the Medical per tablet morning. [facility] furosemide 2021-07 Yes [id number] 20mg Take 1 Univers 20 mg 2-06 tablet by ity of tablet 00:00: mouth once [place] 00 daily as Medical needed Branch (qDay PRN Bilateral Low Extremity Edema). lisinopriL- 2021-07 Yes [id number] .5{tbl} Take 0.5 Univers hydrochloro 2-06 tablets by it y of thiazide 00:00: mouth in [place] 10-12.5 mg 00 the Medical per tablet morning. Branc h dextroamphe 2021-07- No [id number] 20mg Take 1 Univers tamine-amph 2-30 tablet by it y of etamine 20 00:00: 00:00 mouth in [place] mg tablet 00 :00 the Medical morning. Branch Lidocaine 5 2021-07- No [id number] Apply to Univers % cream 08-18 12-14 area(s) 2 ity of 00:00: 00:00 (two) [place] 00 :00 times Medical daily as Branch needed for Pain (scale 4-6). Apply 5g to affected areas BID PRN bromphenira 2021-07 Yes [id number] 5mL Take 5 mL Univers mine-pseudo 1-15 by mouth 4 it y of ephedrine-D 00:00: (four) [place] M (BROMFED 00 times Medical DM) 2-30-10 daily as Bran ch mg/5 mL needed for syrup Congestion /Allergies or Cold symptoms. benzonatate 2021-07 Yes [id number] 100mg Take 1 Univers (TESSALON 1-15 capsule by ity of PERLES) 100 00:00: mouth [place] mg capsule 00 every 8 Medica l (eight) Branch hours as needed for Cough. bromphenira 2021-07 Yes [id number] 5mL Take 5 mL Univers mine-pseudo 1-15 by mouth 4 it y of ephedrine-D 00:00: (four) [place] M (BROMFED 00 times Medical DM) 2-30-10 daily as Bran ch mg/5 mL needed for syrup Congestion /Allergies or Cold symptoms. benzonatate 2021-07 Yes [id number] 100mg Take 1 Univers (TESSALON 1-15 capsule by ity of PERLES) 100 00:00: mouth [place] mg capsule 00 every 8 Medica l (eight) Branch hours as needed for Cough. bromphenira 2021-07 Yes [id number] 5mL Take 5 mL Univers mine-pseudo 1-15 by mouth 4 it y of ephedrine-D 00:00: (four) [place] M (BROMFED 00 times Medical DM) 2-30-10 daily as Bran ch mg/5 mL needed for syrup Congestion /Allergies or Cold symptoms. benzonatate 2021-07 Yes [id number] 100mg Take 1 Univers (TESSALON 1-15 capsule by Michael) 100 00:00: mouth [place] mg capsule 00 every 8 Medica l (eight) Branch hours as needed for Cough. bromphenira 2021-07- No [id number] 5mL Take 5 mL Univers mine-pseudo 1-15 12- by mouth 4 i ty of ephedrine-D 00:00: 00:00 (four) [place] (BROMFED 00 :00 times Medical DM) 2-30-10 daily as Bran ch mg/5 mL needed for syrup Congestion /Allergies or Cold symptoms. benzonatate 2021-07- No [id number] 100mg Take 1 Univers (TESSALON 1-15 12-06 capsule by [place]) 100 00:00: 00:00 [place] mg capsule 00 :00 every 8 Medica l (eight) Branch hours as needed for Cough. bromphenira 2021-07- No [id number] 5mL Take 5 mL Univers mine-pseudo 1-15 12- by mouth 4 i ty of ephedrine-D 00:00: 00:00 (four) [place] (BROMFED 00 :00 times Medical DM) 2-30-10 daily as Bran ch mg/5 mL needed for syrup Congestion /Allergies or Cold symptoms. benzonatate 2021-07- No [id number] 100mg Take 1 Univers (TESSALON 1-15 12-06 capsule by [place]) 100 00:00: 00:00 [place] mg capsule 00 :00 every 8 Medica l (eight) Branch hours as needed for Cough. amoxicillin 2021-07- No [id number] 1{tbl} Take 1 Univers -clavulanat 1-15 11-26 tablet by it y of e 00:00: 05:59 mouth in [place] (AUGMENTIN) 00 :00 the Medical 875-125 mg morning Branch per tablet and 1 tablet in the evening. Do all this for 10 days. amoxicillin 2021-07- No [id number] 1{tbl} Take 1 Univers -clavulanat 1-15 11-26 tablet by it y of e 00:00: 05:59 mouth in [place] (AUGMENTIN) 00 :00 the Medical 875-125 mg morning Branch per tablet and 1 tablet in the evening. Do all this for 10 days. dextroamphe 2021-07 Yes [id number] 20mg Take 1 Univers tamine-amph 1-04 tablet by ity of etamine 20 00:00: mouth in [place] mg tablet 00 the Medical morning. Branch dextroamphe 2021-07 Yes [id number] 20mg Take 1 Univers tamine-amph 1-04 tablet by ity of etamine 20 00:00: mouth in [place] mg tablet 00 the Medical morning. Branch dextroamphe 2021-07 Yes [id number] 20mg Take 1 Univers tamine-amph 1-04 tablet by ity of etamine 20 00:00: mouth in [place] mg tablet 00 the Medical morning. Branch dextroamphe 2021-07 Yes [id number] 20mg Take 1 Univers tamine-amph 1-04 tablet by ity of etamine 20 00:00: mouth in [place] mg tablet 00 the Medical morning. Branch dextroamphe 2021-07- No [id number] 20mg Take 1 Univers tamine-amph 1-04 12-06 tablet by it y of etamine 20 00:00: 00:00 mouth in [place] mg tablet 00 :00 the Medical morning. Branch dextroamphe 2021-07- No [id number] 20mg Take 1 Univers tamine-amph 1-04 12-06 tablet by it y of etamine 20 00:00: 00:00 mouth in [place] mg tablet 00 :00 the Medical morning. Branch dextroamphe 2021-07 Yes [id number] 20mg Take 1 Univers tamine-amph 0-03 tablet by ity of etamine 20 00:00: mouth in [place] mg tablet 00 the Medical morning. Branch dextroamphe 2021-07 Yes [id number] 20mg Take 1 Univers tamine-amph 0-03 tablet by ity of etamine 20 00:00: mouth in [place] mg tablet 00 the Medical morning. Branch dextroamphe 2021-07 Yes [id number] 20mg Take 1 Univers tamine-amph 0-03 tablet by ity of etamine 20 00:00: mouth in [place] mg tablet 00 the Medical morning. Branch dextroamphe 2021-07- No [id number] 20mg Take 1 Univers tamine-amph 0-03 11-03 tablet by it y of etamine 20 00:00: 00:00 mouth [place] mg tablet 00 :00 the Medical morning. Branch dextroamphe Yes [id number] 20mg Take 1 Univers tamine-amph 8-19 tablet by ity of etamine 20 00:00: mouth in [place] as mg tablet 00 the Medical morning. Branch ergocalcife Yes [id number] Take 1 [facility] rol, 8-19 capsule by ity of vitamin d2, 00:00: mouth [place] 1,250 mcg 00 weekly. Medical (50,000 Branch unit) capsule butalbital- Yes [id number] 1{capsu Take 1 [facility] aspirin-caf 8-19 le} capsule by it y of feine 00:00: mouth [place] 50-325-40 00 every 6 Medical mg per (six) Branch capsule hours as needed (Migraine) . ergocalcife Yes [id number] Take 1 [facility] rol, 8-19 capsule by ity of vitamin d2, 00:00: mouth [place] 1,250 mcg 00 weekly. Medical (50,000 Branch unit) capsule butalbital- 2021-0 Yes [id number] 1{capsu Take 1 [facility] aspirin-caf 8-19 le} capsule by it y of feine 00:00: mouth [place] 50-325-40 00 every 6 Medical mg per (six) Branch capsule hours as needed (Migraine) . ergocalcife Yes [id number] Take 1 [facility] rol, 8-19 capsule by ity of vitamin d2, 00:00: mouth [place] 1,250 mcg 00 weekly. Medical (50,000 Branch unit) capsule butalbital- Yes [id number] 1{capsu Take 1 [facility] aspirin-caf 8-19 le} capsule by it y of feine 00:00: mouth [place] 50-325-40 00 every 6 Medical mg per (six) Branch capsule hours as needed (Migraine) . ergocalcife 2021-0 Yes [id number] Take 1 [facility] rol, 8-19 capsule by ity of vitamin d2, 00:00: mouth [place] 1,250 mcg 00 weekly. Medical (50,000 Branch unit) capsule butalbital- 2021-0 Yes [id number] 1{capsu Take 1 [facility] aspirin-caf 8-19 le} capsule by it y of feine 00:00: mouth [place] 50-325-40 00 every 6 Medical mg per (six) Branch capsule hours as needed (Migraine) . ergocalcife 2021- Yes [id number] Take 1 [facility] rol, 8-19 capsule by ity of vitamin d2, 00:00: mouth [place] 1,250 mcg 00 weekly. Medical (50,000 Branch unit) capsule butalbital- 2021- Yes [id number] 1{capsu Take 1 [facility] aspirin-caf 8-19 le} capsule by it y of feine 00:00: mouth [place] 50-325-40 00 every 6 Medical mg per (six) Branch capsule hours as needed (Migraine) . ergocalcife Yes [id number] Take 1 [facility] rol, 8-19 capsule by ity of vitamin d2, 00:00: mouth [place] 1,250 mcg 00 weekly. Medical (50,000 Branch unit) capsule butalbital- 2021- Yes [id number] 1{capsu Take 1 [facility] aspirin-caf 8-19 le} capsule by it y of feine 00:00: mouth [place] 50-325-40 00 every 6 Medical mg per (six) Branch capsule hours as needed (Migraine) . ergocalcife 2021- Yes [id number] Take 1 [facility] rol, 8-19 capsule by ity of vitamin d2, 00:00: mouth [place] 1,250 mcg 00 weekly. Medical (50,000 Branch unit) capsule butalbital- 2021-0 Yes [id number] 1{capsu Take 1 [facility] aspirin-caf 8-19 le} capsule by it y of feine 00:00: mouth [place] 50-325-40 00 every 6 Medical mg per (six) Branch capsule hours as needed (Migraine) . ergocalcife 2021- Yes [id number] Take 1 [facility] rol, 8-19 capsule by ity of vitamin d2, 00:00: mouth [place] 1,250 mcg 00 weekly. Medical (50,000 Branch unit) capsule butalbital- 2021-0 Yes [id number] 1{capsu Take 1 [facility] aspirin-caf 8-19 le} capsule by it y of feine 00:00: mouth [place] 50-325-40 00 every 6 Medical mg per (six) Branch capsule hours as needed (Migraine) . ergocalcife 2021-0 Yes [id number] Take 1 [facility] rol, 8-19 capsule by ity of vitamin d2, 00:00: mouth [place] 1,250 mcg 00 weekly. Medical (50,000 Branch unit) capsule butalbital- 2021-0 Yes [id number] 1{capsu Take 1 [facility] aspirin-caf 8-19 le} capsule by it y of feine 00:00: mouth [place] 50-325-40 00 every 6 Medical mg per (six) Branch capsule hours as needed (Migraine) . ergocalcife 2021- Yes [id number] Take 1 [facility] rol, 8-19 capsule by ity of vitamin d2, 00:00: mouth [place] 1,250 mcg 00 weekly. Medical (50,000 Branch unit) capsule butalbital- 2021-0 Yes [id number] 1{capsu Take 1 [facility] aspirin-caf 8-19 le} capsule by it y of feine 00:00: mouth [place] 50-325-40 00 every 6 Medical mg per (six) Branch capsule hours as needed (Migraine) . ergocalcife 2021-0 Yes [id number] Take 1 [facility] rol, 8-19 capsule by ity of vitamin d2, 00:00: mouth [place] 1,250 mcg 00 weekly. Medical (50,000 Branch unit) capsule butalbital- 202-0 Yes [id number] 1{capsu Take 1 [facility] aspirin-caf 8-19 le} capsule by it y of feine 00:00: mouth [place] 50-325-40 00 every 6 Medical mg per (six) Branch capsule hours as needed (Migraine) . ergocalcife 2021-0 Yes [id number] Take 1 [facility] rol, 8-19 capsule by ity of vitamin d2, 00:00: mouth [place] 1,250 mcg 00 weekly. Medical (50,000 Branch unit) capsule butalbital- 2022-0 Yes [id number] 1{capsu Take 1 [facility] aspirin-caf 8-19 le} capsule by it y of feine 00:00: mouth [place] 50-325-40 00 every 6 Medical mg per (six) Branch capsule hours as needed (Migraine) . butalbital- Yes [id number] 1{capsu Take 1 [facility] aspirin-caf 8-19 le} capsule by it y of feine 00:00: mouth [place] 50-325-40 00 every 6 Medical mg per (six) Branch capsule hours as needed (Migraine) . butalbital- Yes [id number] 1{capsu Take 1 [facility] aspirin-caf 8-19 le} capsule by it y of feine 00:00: mouth [place] 50-325-40 00 every 6 Medical mg per (six) Branch capsule hours as needed (Migraine) . butalbital- Yes [id number] 1{capsu Take 1 [facility] aspirin-caf 8-19 le} capsule by it y of feine 00:00: mouth [place] 50-325-40 00 every 6 Medical mg per (six) Branch capsule hours as needed (Migraine) . butalbital- Yes [id number] 1{capsu Take 1 [facility] aspirin-caf 8-19 le} capsule by it y of feine 00:00: mouth [place] 50-325-40 00 every 6 Medical mg per (six) Branch capsule hours as needed (Migraine) . butalbital- Yes [id number] 1{capsu Take 1 [facility] aspirin-caf 8-19 le} capsule by it y of feine 00:00: mouth [place] 50-325-40 00 every 6 Medical mg per (six) Branch capsule hours as needed (Migraine) . butalbital- Yes [id number] 1{capsu Take 1 [facility] aspirin-caf 8-19 le} capsule by it y of feine 00:00: mouth [place] 50-325-40 00 every 6 Medical mg per (six) Branch capsule hours as needed (Migraine) . butalbital- Yes [id number] 1{capsu Take 1 [facility] aspirin-caf 8-19 le} capsule by it y of feine 00:00: mouth [place] 50-325-40 00 every 6 Medical mg per (six) Branch capsule hours as needed (Migraine) . butalbital- 2022-0 Yes [id number] 1{capsu Take 1 [facility] aspirin-caf 8-19 le} capsule by it y of feine 00:00: mouth [place] 50-325-40 00 every 6 Medical mg per (six) Branch capsule hours as needed (Migraine) . dextroamphe 2022-0 Yes [id number] 20mg Take 1 [facility] tamine-amph 8-19 tablet by ity of etamine 20 00:00: mouth in [place] as mg tablet 00 the Medical morning. Branch ergocalcife 2-0 Yes [id number] Take 1 [facility] rol, 8-19 capsule by ity of vitamin d2, 00:00: mouth [place] 1,250 mcg 00 weekly. Medical (50,000 Branch unit) capsule butalbital- 2022-0 Yes [id number] 1{capsu Take 1 [facility] aspirin-caf 8-19 le} capsule by it y of feine 00:00: mouth [place] 50-325-40 00 every 6 Medical mg per (six) Branch capsule hours as needed (Migraine) . dextroamphe 2-0 Yes [id number] 20mg Take 1 [facility] tamine-amph 8-19 tablet by ity of etamine 20 00:00: mouth in [place] mg tablet 00 the Medical morning. Branch ergocalcife 2-0 Yes [id number] Take 1 [facility] rol, 8-19 capsule by ity of vitamin d2, 00:00: mouth [place] 1,250 mcg 00 weekly. Medical (50,000 Branch unit) capsule butalbital- 2022-0 Yes [id number] 1{capsu Take 1 [facility] aspirin-caf 8-19 le} capsule by it y of feine 00:00: mouth [place] 50-325-40 00 every 6 Medical mg per (six) Branch capsule hours as needed (Migraine) . dextroamphe 2022-0 Yes [id number] 20mg Take 1 [facility] tamine-amph 8-19 tablet by ity of etamine 20 00:00: mouth in [place] mg tablet 00 the Medical morning. Branch ergocalcife 2022-0 Yes [id number] Take 1 [facility] rol, 8-19 capsule by ity of vitamin d2, 00:00: mouth [place] 1,250 mcg 00 weekly. Medical (50,000 Branch unit) capsule butalbital- Yes [id number] 1{capsu Take 1 [facility] aspirin-caf 02-28 le} capsule by it y of feine 00:00: mouth [place] 50-325-40 00 every 6 Medical mg per (six) Branch capsule hours as needed (Migraine) . ergocalcife 2022- No [id number] Take 1 [facility] rol, 02-28-30 capsule by ity of vitamin d2, 00:00: 00:00 [place] 1,250 mcg 00 :00 weekly. Medical (50,000 Branch unit) capsule dextroamphe 2021- No [id number] 20mg Take 1 [facility] tamine-amph 02-28 tablet by it y of etamine 20 00:00: 00:00 mouth in [place] mg tablet 00 :00 the Medical morning. Branch dextroamphe 2021- No [id number] 20mg Take 1 [facility] tamine-amph -02-28 tablet by it y of etamine 20 00:00: 00:00 mouth in [place] mg tablet 00 :00 the Medical morning. Branch cyclobenzap 2021- No [id number] 10mg Take 1 [facility] rine 10 mg 12-07 tablet by ity of tablet 00:00: 00:00 mouth [place] 00 :00 every 8 Medical (eight) Branch hours as needed for Muscle Spasms. methylPREDN 2021- No [id number] Take by [facility] ISolone -28 02-28 mouth ity of (MEDROL, 00:00: 00:00 [place]STRU [place] 4 mg 00 :00 CTIONS. Medica l tablets follow Branch package directions lisinopriL- Yes [id number] .5{tbl} Take 0.5 [facility] hydrochloro 5-20 tablets by it y of thiazide 00:00: mouth [place] 10-12.5 mg 00 daily. Medical per tablet Branch lisinopriL- Yes [id number] .5{tbl} Take 0.5 [facility] hydrochloro 5-20 tablets by it y of thiazide 00:00: mouth [place] 10-12.5 mg 00 daily. Medical per tablet Branch lisinopriL- Yes [id number] .5{tbl} Take 0.5 [facility] hydrochloro 5-20 tablets by it y of thiazide 00:00: mouth [place] 10-12.5 mg 00 daily. Medical per tablet Branch lisinopriL- Yes [id number] .5{tbl} Take 0.5 [facility] hydrochloro 5-20 tablets by it y of thiazide 00:00: mouth [place] 10-12.5 mg 00 daily. Medical per tablet Branch lisinopriL- Yes [id number] .5{tbl} Take 0.5 [facility] hydrochloro 5-20 tablets by it y of thiazide 00:00: mouth [place] 10-12.5 mg 00 daily. Medical per tablet Branch lisinopriL- Yes [id number] .5{tbl} Take 0.5 [facility] hydrochloro 5-20 tablets by it y of thiazide 00:00: mouth [place] 10-12.5 mg 00 daily. Medical per tablet Branch lisinopriL- Yes [id number] .5{tbl} Take 0.5 [facility] hydrochloro 5-20 tablets by it y of thiazide 00:00: mouth [place] 10-12.5 mg 00 daily. Medical per tablet Branch lisinopriL- Yes [id number] .5{tbl} Take 0.5 [facility] hydrochloro 5-20 tablets by it y of thiazide 00:00: mouth [place] 10-12.5 mg 00 daily. Medical per tablet Branch lisinopriL- Yes [id number] .5{tbl} Take 0.5 [facility] hydrochloro 5-20 tablets by it y of thiazide 00:00: mouth [place] 10-12.5 mg 00 daily. Medical per tablet Branch lisinopriL- Yes [id number] .5{tbl} Take 0.5 [facility] hydrochloro 5-20 tablets by it y of thiazide 00:00: mouth [place] 10-12.5 mg 00 daily. Medical per tablet Branch lisinopriL- Yes [id number] .5{tbl} Take 0.5 [facility] hydrochloro 5-20 tablets by it y of thiazide 00:00: mouth [place] 10-12.5 mg 00 daily. Medical per tablet Branch lisinopriL- 2021- No [id number] .5{tbl} Take 0.5 [facility] hydrochloro 5-20 12-06 tablets by i ty of thiazide 00:00: 00:00 mouth [place] 10-12.5 mg 00 :00 daily. Medical per tablet Branch lisinopriL- 2021- No [id number] .5{tbl} Take 0.5 [facility] hydrochloro 5-20 12-06 tablets by i ty of thiazide 00:00: 00:00 mouth [place] 10-12.5 mg 00 :00 daily. Medical per tablet Branch Diclofenac 2021- No [id number] Apply to Univers Sodium 5-20 08- area(s) 4 ity of (VOLTAREN) 00:00: 00:00 (four) [place] 1 % gel 00 :00 times Medical daily. Branch Apply 4 g qid furosemide Yes [id number] 20mg Take 1 [facility] 20 mg 4-13 tablet by ity of tablet 00:00: mouth once 00 daily as Medical needed Branch (qDay PRN Bilateral Low Extremity Edema). calcium Yes [id number] 1{tbl} Take 1 Un ren carbonate 4-13 tablet by ity o f (CALCIUM 00:00: mouth [place] 500) 500 mg 00 daily. Medica l calcium Branch (1,250 mg) chewable tablet furosemide Yes [id number] 20mg Take 1 [facility] 20 mg 4-13 tablet by ity of tablet 00:00: mouth once [place] 00 daily as Medical needed Branch (qDay PRN Bilateral Low Extremity Edema). calcium Yes [id number] 1{tbl} Take 1 Un ren carbonate 4-13 tablet by ity o f (CALCIUM 00:00: mouth [place] 500) 500 mg 00 daily. Medica l calcium Branch (1,250 mg) chewable tablet furosemide Yes [id number] 20mg Take 1 [facility] 20 mg 4-13 tablet by ity of tablet 00:00: mouth once [place] 00 daily as Medical needed Branch (qDay PRN Bilateral Low Extremity Edema). calcium Yes [id number] 1{tbl} Take 1 Un ren carbonate 4-13 tablet by ity o f (CALCIUM 00:00: mouth [place] 500) 500 mg 00 daily. Medica l calcium Branch (1,250 mg) chewable tablet furosemide 2021-0 Yes [id number] 20mg Take 1 [facility] 20 mg 4-13 tablet by ity of tablet 00:00: mouth once [place] 00 daily as Medical needed Branch (qDay PRN Bilateral Low Extremity Edema). calcium 2021-0 Yes [id number] 1{tbl} Take 1 Un ren carbonate 4-13 tablet by ity o f (CALCIUM 00:00: mouth [place] 500) 500 mg 00 daily. Medica l calcium Branch (1,250 mg) chewable tablet furosemide 2021-0 Yes [id number] 20mg Take 1 [facility] 20 mg 4-13 tablet by ity of tablet 00:00: mouth once [place] 00 daily as Medical needed Branch (qDay PRN Bilateral Low Extremity Edema). calcium 2021-0 Yes [id number] 1{tbl} Take 1 Un ren carbonate 4-13 tablet by ity o f (CALCIUM 00:00: mouth [place] 500) 500 mg 00 daily. Medica l calcium Branch (1,250 mg) chewable tablet furosemide 2021-0 Yes [id number] 20mg Take 1 [facility] 20 mg 4-13 tablet by ity of tablet 00:00: mouth once [place] 00 daily as Medical needed Branch (qDay PRN Bilateral Low Extremity Edema). calcium 2021-0 Yes [id number] 1{tbl} Take 1 Un [facility] carbonate 4-13 tablet by ity o f (CALCIUM 00:00: mouth [place] 500) 500 mg 00 daily. Medica l calcium Branch (1,250 mg) chewable tablet furosemide 2021-0 Yes [id number] 20mg Take 1 [facility] 20 mg 4-13 tablet by ity of tablet 00:00: mouth once [place] 00 daily as Medical needed Branch (qDay PRN Bilateral Low Extremity Edema). calcium 2021-0 Yes [id number] 1{tbl} Take 1 Un [facility] carbonate 4-13 tablet by ity o f (CALCIUM 00:00: mouth [place] 500) 500 mg 00 daily. Medica l calcium Branch (1,250 mg) chewable tablet furosemide 2021-0 Yes [id number] 20mg Take 1 [facility] 20 mg 4-13 tablet by ity of tablet 00:00: mouth once [place] 00 daily as Medical needed Branch (qDay PRN Bilateral Low Extremity Edema). calcium 2021-0 Yes [id number] 1{tbl} Take 1 Un ren carbonate 4-13 tablet by ity o f (CALCIUM 00:00: mouth [place] 500) 500 mg 00 daily. Medica l calcium Branch (1,250 mg) chewable tablet calcium 2021-0 Yes [id number] 1{tbl} Take 1 Un ren carbonate 4-13 tablet by ity o f (CALCIUM 00:00: mouth [place] 500) 500 mg 00 daily. Medica l calcium Branch (1,250 mg) chewable tablet calcium 2021-0 Yes [id number] 1{tbl} Take 1 Un ren carbonate 4-13 tablet by ity o f (CALCIUM 00:00: mouth [place] 500) 500 mg 00 daily. Medica l calcium Branch (1,250 mg) chewable tablet calcium 2021- Yes [id number] 1{tbl} Take 1 Un ren carbonate 4-13 tablet by ity o f (CALCIUM 00:00: mouth [place] 500) 500 mg 00 daily. Medica l calcium Branch (1,250 mg) chewable tablet calcium 2021- Yes [id number] 1{tbl} Take 1 Un ren carbonate 4-13 tablet by ity o f (CALCIUM 00:00: mouth [place] 500) 500 mg 00 daily. Medica l calcium Branch (1,250 mg) chewable tablet furosemide 2021-0 Yes [id number] 20mg Take 1 [facility] 20 mg 4-13 tablet by ity of tablet 00:00: mouth once [place] 00 daily as Medical needed Branch (qDay PRN Bilateral Low Extremity Edema). calcium 2021-0 Yes [id number] 1{tbl} Take 1 Un ren carbonate 4-13 tablet by ity o f (CALCIUM 00:00: mouth [place] 500) 500 mg 00 daily. Medica l calcium Branch (1,250 mg) chewable tablet furosemide 2021-0 Yes [id number] 20mg Take 1 [facility] 20 mg 4-13 tablet by ity of tablet 00:00: mouth once [place] 00 daily as Medical needed Branch (qDay PRN Bilateral Low Extremity Edema). calcium 2021-0 Yes [id number] 1{tbl} Take 1 Un ren carbonate 4-13 tablet by ity o f (CALCIUM 00:00: mouth [place] 500) 500 mg 00 daily. Medica l calcium Branch (1,250 mg) chewable tablet furosemide Yes [id number] 20mg Take 1 [facility] 20 mg 4-13 tablet by ity of tablet 00:00: mouth once [place] 00 daily as Medical needed Branch (qDay PRN Bilateral Low Extremity Edema). calcium Yes [id number] 1{tbl} Take 1 Un ren carbonate 4-13 tablet by ity o f (CALCIUM 00:00: mouth [place] 500) 500 mg 00 daily. Medica l calcium Branch (1,250 mg) chewable tablet calcium 2022- No [id number] 1{tbl} Take 1 [facility] carbonate 4-13 -30 tablet by ity of (CALCIUM 00:00: 00:00 mouth [place] 500) 500 mg 00 :00 daily. Medica l calcium Branch (1,250 mg) chewable tablet furosemide 2021- No [id number] 20mg Take 1 [facility] 20 mg 4-13 - tablet by ity of tablet 00:00: 00:00 [place] 00 :00 daily as Medical needed Branch (qDay PRN Bilateral Low Extremity Edema). furosemide 2021- No [id number] 20mg Take 1 [facility] 20 mg 4-13 - tablet by ity of tablet 00:00: 00:00 mouth [place] 00 :00 daily as Medical needed Branch (qDay PRN Bilateral Low Extremity Edema). neomycin-po 2021- No [id number] 3[drp] Place 3 [facility] lymyxin-hyd 10-23 Drops in ity of rocortisone 00:00: 00:00 both ears [place] otic 00 :00 4 (four) Medical solution times Branch daily. Cholecalcif 2021- No [id number] 5000U Take 1 [facility] [place], 10-08 tablet by ity of Vitamin D3, 00:00: 00:00 [place] (VITAMIN 00 :00 daily. Medical D3) 125 mcg Branch (5,000 unit) tablet butalbital- 2021- No [id number] 1{capsu Take 1 [facility] aspirin-caf 10-08 le} capsule by i ty suhail skinner 00:00: 00:00 mouth [place] 50-325-40 00 :00 every 6 Medical mg per (six) Branch capsule hours as needed (Migraine) . albuterol Yes [id number] 2{puff} Inhale 2 [facility] 90 2-16 Puffs ity of mcg/actuati 00:00: every 6 [place] on inhaler 00 (six) Medical hours as Branch needed for Wheezing, Shortness of Breath or Bronchospa sm. albuterol Yes [id number] 2{puff} Inhale 2 [facility] 90 2-16 Puffs ity of mcg/actuati 00:00: every 6 [place] on inhaler 00 (six) Medical hours as Branch needed for Wheezing, Shortness of Breath or Bronchospa sm. albuterol Yes [id number] 2{puff} Inhale 2 [facility] 90 2-16 Puffs ity of mcg/actuati 00:00: every 6 [place] on inhaler 00 (six) Medical hours as Branch needed for Wheezing, Shortness of Breath or Bronchospa sm. albuterol Yes [id number] 2{puff} Inhale 2 [facility] 90 2-16 Puffs ity of mcg/actuati 00:00: every 6 [place] on inhaler 00 (six) Medical hours as Branch needed for Wheezing, Shortness of Breath or Bronchospa sm. albuterol Yes [id number] 2{puff} Inhale 2 [facility] 90 2-16 Puffs ity of mcg/actuati 00:00: every 6 [place] on inhaler 00 (six) Medical hours as Branch needed for Wheezing, Shortness of Breath or Bronchospa sm. albuterol Yes [id number] 2{puff} Inhale 2 [facility] 90 2-16 Puffs ity of mcg/actuati 00:00: every 6 [place] on inhaler 00 (six) Medical hours as Branch needed for Wheezing, Shortness of Breath or Bronchospa sm. albuterol Yes [id number] 2{puff} Inhale 2 [facility] 90 2-16 Puffs ity of mcg/actuati 00:00: every 6 [place] on inhaler 00 (six) Medical hours as Branch needed for Wheezing, Shortness of Breath or Bronchospa sm. albuterol Yes [id number] 2{puff} Inhale 2 [facility] 90 2-16 Puffs ity of mcg/actuati 00:00: every 6 [place] on inhaler 00 (six) Medical hours as Branch needed for Wheezing, Shortness of Breath or Bronchospa sm. albuterol Yes [id number] 2{puff} Inhale 2 [facility] 90 2-16 Puffs ity of mcg/actuati 00:00: every 6 [place] on inhaler 00 (six) Medical hours as Branch needed for Wheezing, Shortness of Breath or Bronchospa sm. albuterol Yes [id number] 2{puff} Inhale 2 [facility] 90 2-16 Puffs ity of mcg/actuati 00:00: every 6 [place] on inhaler 00 (six) Medical hours as Branch needed for Wheezing, Shortness of Breath or Bronchospa sm. albuterol Yes [id number] 2{puff} Inhale 2 [facility] 90 2-16 Puffs ity of mcg/actuati 00:00: every 6 [place] on inhaler 00 (six) Medical hours as Branch needed for Wheezing, Shortness of Breath or Bronchospa sm. albuterol Yes [id number] 2{puff} Inhale 2 [facility] 90 2-16 Puffs ity of mcg/actuati 00:00: every 6 [place] on inhaler 00 (six) Medical hours as Branch needed for Wheezing, Shortness of Breath or Bronchospa sm. albuterol Yes [id number] 2{puff} Inhale 2 [facility] 90 2-16 Puffs ity of mcg/actuati 00:00: every 6 [place] on inhaler 00 (six) Medical hours as Branch needed for Wheezing, Shortness of Breath or Bronchospa sm. albuterol Yes [id number] 2{puff} Inhale 2 [facility] 90 2-16 Puffs ity of mcg/actuati 00:00: every 6 [place] on inhaler 00 (six) Medical hours as Branch needed for Wheezing, Shortness of Breath or Bronchospa sm. albuterol Yes [id number] 2{puff} Inhale 2 [facility] 90 2-16 Puffs ity of mcg/actuati 00:00: every 6 [place] on inhaler 00 (six) Medical hours as Branch needed for Wheezing, Shortness of Breath or Bronchospa sm. albuterol Yes [id number] 2{puff} Inhale 2 [facility] 90 2-16 Puffs ity of mcg/actuati 00:00: every 6 [place] on inhaler 00 (six) Medical hours as Branch needed for Wheezing, Shortness of Breath or Bronchospa sm. albuterol Yes [id number] 2{puff} Inhale 2 [facility] 90 2-16 Puffs ity of mcg/actuati 00:00: every 6 [place] on inhaler 00 (six) Medical hours as Branch needed for Wheezing, Shortness of Breath or Bronchospa sm. albuterol Yes [id number] 2{puff} Inhale 2 [facility] 90 2-16 Puffs ity of mcg/actuati 00:00: every 6 [place] on inhaler 00 (six) Medical hours as Branch needed for Wheezing, Shortness of Breath or Bronchospa sm. albuterol Yes [id number] 2{puff} Inhale 2 [facility] 90 2-16 Puffs ity of mcg/actuati 00:00: every 6 [place] on inhaler 00 (six) Medical hours as Branch needed for Wheezing, Shortness of Breath or Bronchospa sm. albuterol Yes [id number] 2{puff} Inhale 2 [facility] 90 2-16 Puffs ity of mcg/actuati 00:00: every 6 [place] on inhaler 00 (six) Medical hours as Branch needed for Wheezing, Shortness of Breath or Bronchospa sm. albuterol Yes [id number] 2{puff} Inhale 2 [facility] 90 2-16 Puffs ity of mcg/actuati 00:00: every 6 [place] on inhaler 00 (six) Medical hours as Branch needed for Wheezing, Shortness of Breath or Bronchospa sm. albuterol Yes [id number] 2{puff} Inhale 2 [facility] 90 2-16 Puffs ity of mcg/actuati 00:00: every 6 [place] on inhaler 00 (six) Medical hours as Branch needed for Wheezing, Shortness of Breath or Bronchospa sm. albuterol Yes [id number] 2{puff} Inhale 2 [facility] 90 2-16 Puffs ity of mcg/actuati 00:00: every 6 [place] on inhaler 00 (six) Medical hours as Branch needed for Wheezing, Shortness of Breath or Bronchospa sm. Immunizations Ordered Filled Immunization Date Status Comments [facility] e Immunization Name Name Influenza Virus 2022-06-17 Completed Universit y of Vaccine [facility] IM, 00:00:00 [place] [facility] Preserv and ABX Branch Free 6 MO-64 YRS Influenza Virus 2022-06-17 Completed Universit y of Vaccine [facility] IM, 00:00:00 [place] Me dical Preserv and ABX Branch Free 6 MO-64 YRS Influenza Virus 2022-06-17 Completed Universit y of Vaccine [facility] IM, 00:00:00 [place] Me dical Preserv and ABX Branch Free 6 MO-64 YRS Influenza Virus 2022-06-17 Completed Universit y of Vaccine Quad IM, 00:00:00 [place] Me dical Preserv and ABX Branch Free 6 MO-64 YRS Influenza Virus 2022-06-17 Completed Universit y of Vaccine Quad IM, 00:00:00 [place] Me dical Preserv and ABX Branch Free 6 MO-64 YRS Influenza Virus 2022-06-17 Completed Universit y of Vaccine Quad IM, 00:00:00 [place] Me dical Preserv and ABX Branch Free 6 MO-64 YRS Influenza Virus 2022-06-17 Completed Universit y of Vaccine Quad IM, 00:00:00 [place] Me dical Preserv and ABX Branch Free 6 MO-64 YRS Influenza Virus 2022-06-17 Completed Universit y of Vaccine Quad IM, 00:00:00 [place] Me dical Preserv and ABX Branch Free 6 MO-64 YRS Influenza Virus 2022-06-17 Completed Universit y of Vaccine Quad IM, 00:00:00 [place] Me dical Preserv and ABX Branch Free 6 MO-64 YRS Influenza Virus 2022-06-17 Completed Universit y of Vaccine Quad IM, 00:00:00 [place] Me dical Preserv and ABX Branch Free 6 MO-64 YRS Influenza Virus 2022-06-17 Completed Universit y of Vaccine Quad IM, 00:00:00 [place] Me dical Preserv and ABX Branch Free 6 MO-64 YRS Influenza Virus 2022-06-17 Completed Universit y of Vaccine Quad IM, 00:00:00 [place] Me dical Preserv and ABX Branch Free 6 MO-64 YRS SARS-COV-2 COVID-19 2021-06-29 Completed Unive rsity of PFIZER VACCINE 00:00:00 [facility] SARS-COV-2 COVID-19 2021-06-29 Completed Unive rsity of PFIZER VACCINE 00:00:00 [facility] SARS-COV-2 COVID-19 2021-06-29 Completed Unive rsity of PFIZER VACCINE 00:00:00 [facility] SARS-COV-2 COVID-19 2021-06-29 Completed Unive rsity of PFIZER VACCINE 00:00:00 [facility] SARS-COV-2 COVID-19 2021-06-29 Completed Unive rsity of PFIZER VACCINE 00:00:00 [facility] SARS-COV-2 COVID-19 2021-06-29 Completed Unive rsity of PFIZER VACCINE 00:00:00 [facility] SARS-COV-2 COVID-19 2021-06-29 Completed Unive rsity of PFIZER VACCINE 00:00:00 [facility] SARS-COV-2 COVID-19 2021-06-29 Completed Unive rsity of PFIZER VACCINE 00:00:00 [facility] SARS-COV-2 COVID-19 2021-06-29 Completed Unive rsity of PFIZER VACCINE 00:00:00 [facility] SARS-COV-2 COVID-19 2021-06-29 Completed Unive rsity of PFIZER VACCINE 00:00:00 [facility] SARS-COV-2 COVID-19 2021-06-29 Completed Unive rsity of PFIZER VACCINE 00:00:00 [facility] SARS-COV-2 COVID-19 2021-06-29 Completed Unive rsity of PFIZER VACCINE 00:00:00 [facility] SARS-COV-2 COVID-19 2021-06-29 Completed Unive rsity of PFIZER VACCINE 00:00:00 [facility] SARS-COV-2 COVID-19 2021-06-29 Completed Unive rsity of PFIZER VACCINE 00:00:00 [facility] SARS-COV-2 COVID-19 2021-06-29 Completed Unive rsity of PFIZER VACCINE 00:00:00 [facility] SARS-COV-2 COVID-19 2021-06-29 Completed Unive rsity of PFIZER VACCINE 00:00:00 [facility] SARS-COV-2 COVID-19 2021-06-29 Completed Unive rsity of PFIZER VACCINE 00:00:00 [facility] SARS-COV-2 COVID-19 2021-06-29 Completed Unive rsity of PFIZER VACCINE 00:00:00 [facility] SARS-COV-2 COVID-19 2021-06-29 Completed Unive rsity of PFIZER VACCINE 00:00:00 [facility] SARS-COV-2 COVID-19 2021-06-29 Completed Unive rsity of PFIZER VACCINE 00:00:00 [facility] SARS-COV-2 COVID-19 2021-06-29 Completed Unive rsity of PFIZER VACCINE 00:00:00 [facility] SARS-COV-2 COVID-19 2021-06-29 Completed Unive rsity of PFIZER VACCINE 00:00:00 [facility] SARS-COV-2 COVID-19 2021-06-29 Completed Unive rsity of PFIZER VACCINE 00:00:00 [facility] TDAP 2020-10-13 Completed University of 00:00:00 [facility] TDAP 2020-10-13 Completed University of 00:00:00 [facility] TDAP 2020-10-13 Completed University of 00:00:00 [facility] TDAP 2020-10-13 Completed University of 00:00:00 [facility] TDAP 2020-10-13 Completed University of 00:00:00 [facility] TDAP 2020-10-13 Completed University of 00:00:00 [facility] TDAP 2020-10-13 Completed University of 00:00:00 [facility] TDAP 2020-10-13 Completed University of 00:00:00 [facility] TDAP 2020-10-13 Completed University of 00:00:00 [facility] TDAP 2020-10-13 Completed University of 00:00:00 [facility] TDAP 2020-10-13 Completed University of 00:00:00 [facility] TDAP 2020-10-13 Completed University of 00:00:00 [facility] TDAP 2020-10-13 Completed University of 00:00:00 [facility] TDAP 2020-10-13 Completed University of 00:00:00 [facility] TDAP 2020-10-13 Completed University of 00:00:00 [facility] TDAP 2020-10-13 Completed University of 00:00:00 [facility] TDAP 2020-10-13 Completed University of 00:00:00 [facility] TDAP 2020-10-13 Completed University of 00:00:00 [facility] TDAP 2020-10-13 Completed University of 00:00:00 [facility] TDAP 2020-10-13 Completed University of 00:00:00 [facility] TDAP 2020-10-13 Completed University of 00:00:00 [facility] TDAP 2020-10-13 Completed University of 00:00:00 [facility] TDAP 2020-10-13 Completed University of 00:00:00 [facility] SARS-COV-2 COVID-19 2020-08-14 Completed Unive rsity of MODERNA VACCINE 00:00:00 [facility] ical Branch SARS-COV-2 COVID-19 2020-08-14 Completed Unive rsity of MODERNA 12+ YRS 00:00:00 [place] [facility] VACCINE [facility] SARS-COV-2 COVID-19 2020-08-14 Completed Unive rsity of MODERNA 12+ YRS 00:00:00 [place] [facility] VACCINE [facility] SARS-COV-2 COVID-19 2020-08-14 Completed Unive rsity of MODERNA 12+ YRS 00:00:00 [place] [facility] VACCINE [facility] SARS-COV-2 COVID-19 2020-08-14 Completed Unive rsity of MODERNA 12+ YRS 00:00:00 [place] [facility] SARS-COV-2 COVID-19 2020-08-14 Completed Unive rsity of MODERNA 12+ YRS 00:00:00 [place] [facility] SARS-COV-2 COVID-19 2020-08-14 Completed Unive rsity of MODERNA 12+ YRS 00:00:00 [place] [facility] SARS-COV-2 COVID-19 2020-08-14 Completed Unive rsity of MODERNA 12+ YRS 00:00:00 [place] [facility] SARS-COV-2 COVID-19 2020-08-14 Completed Unive rsity of MODERNA 12+ YRS 00:00:00 [place] [facility] SARS-COV-2 COVID-19 2020-08-14 Completed Unive rsity of MODERNA 12+ YRS 00:00:00 [place] [facility] SARS-COV-2 COVID-19 2020-08-14 Completed Unive rsity of MODERNA 12+ YRS 00:00:00 [place] [facility] SARS-COV-2 COVID-19 2020-08-14 Completed Unive rsity of MODERNA 12+ YRS 00:00:00 [facility] SARS-COV-2 COVID-19 2020-08-14 Completed Unive rsity of MODERNA 12+ YRS 00:00:00 [facility] SARS-COV-2 COVID-19 2020-08-14 Completed Unive rsity of MODERNA 12+ YRS 00:00:00 [place] [facility] SARS-COV-2 COVID-19 2020-08-14 Completed Unive rsity of MODERNA 12+ YRS 00:00:00 [place] [facility] SARS-COV-2 COVID-19 2020-08-14 Completed Unive rsity of MODERNA 12+ YRS 00:00:00 [place] [facility] SARS-COV-2 COVID-19 2020-08-14 Completed Unive rsity of MODERNA 12+ YRS 00:00:00 [place] [facility] SARS-COV-2 COVID-19 2020-08-14 Completed Unive rsity of MODERNA 12+ YRS 00:00:00 [place] [facility] SARS-COV-2 COVID-19 2020-08-14 Completed Unive rsity of MODERNA 12+ YRS 00:00:00 [place] [facility] SARS-COV-2 COVID-19 2020-08-14 Completed Unive rsity of MODERNA 12+ YRS 00:00:00 [place] [facility] SARS-COV-2 COVID-19 2020-08-14 Completed Unive rsity of MODERNA 12+ YRS 00:00:00 [place] [facility] SARS-COV-2 COVID-19 2020-08-14 Completed Unive rsity of MODERNA VACCINE 00:00:00 [facility] SARS-COV-2 COVID-19 2020-08-14 Completed Unive rsity of MODERNA VACCINE 00:00:00 [facility] SARS-COV-2 COVID-19 2020-07-17 Completed Unive rsity of MODERNA 12+ YRS 00:00:00 [place] [facility]INE [facility] SARS-COV-2 COVID-19 2020-07-17 Completed Unive rsity of MODERNA 12+ YRS 00:00:00 [place] [facility] SARS-COV-2 COVID-19 2020-07-17 Completed Unive rsity of MODERNA 12+ YRS 00:00:00 [place] [facility] SARS-COV-2 COVID-19 2020-07-17 Completed Unive rsity of MODERNA 12+ YRS 00:00:00 [place] [facility] SARS-COV-2 COVID-19 2020-07-17 Completed Unive rsity of MODERNA 12+ YRS 00:00:00 [place] [facility] SARS-COV-2 COVID-19 2020-07-17 Completed Unive rsity of MODERNA 12+ YRS 00:00:00 [place] [facility] SARS-COV-2 COVID-19 2020-07-17 Completed Unive rsity of MODERNA 12+ YRS 00:00:00 [place] [facility] SARS-COV-2 COVID-19 2020-07-17 Completed Unive rsity of MODERNA 12+ YRS 00:00:00 [facility] SARS-COV-2 COVID-19 2020-07-17 Completed Unive rsity of MODERNA 12+ YRS 00:00:00 [facility] SARS-COV-2 COVID-19 2020-07-17 Completed Unive rsity of MODERNA 12+ YRS 00:00:00 [place] [facility] SARS-COV-2 COVID-19 2020-07-17 Completed Unive rsity of MODERNA 12+ YRS 00:00:00 [place] [facility] SARS-COV-2 COVID-19 2020-07-17 Completed Unive rsity of MODERNA 12+ YRS 00:00:00 [place] [facility] SARS-COV-2 COVID-19 2020-07-17 Completed Unive rsity of MODERNA 12+ YRS 00:00:00 [place] [facility] SARS-COV-2 COVID-19 2020-07-17 Completed Unive rsity of MODERNA 12+ YRS 00:00:00 [place] [facility] SARS-COV-2 COVID-19 2020-07-17 Completed Unive rsity of MODERNA 12+ YRS 00:00:00 [facility] SARS-COV-2 COVID-19 2020-07-17 Completed Unive rsity of MODERNA 12+ YRS 00:00:00 [place] [facility] SARS-COV-2 COVID-19 2020-07-17 Completed Unive rsity of MODERNA 12+ YRS 00:00:00 [facility] SARS-COV-2 COVID-19 2020-07-17 Completed Unive rsity of MODERNA 12+ YRS 00:00:00 [facility] SARS-COV-2 COVID-19 2020-07-17 Completed Unive rsity of MODERNA 12+ YRS 00:00:00 [facility] SARS-COV-2 COVID-19 2020-07-17 Completed Unive rsity of MODERNA 12+ YRS 00:00:00 [place] [facility] SARS-COV-2 COVID-19 2020-07-17 Completed Unive rsity of MODERNA VACCINE 00:00:00 [facility] SARS-COV-2 COVID-19 2020-07-17 Completed Unive rsity of MODERNA VACCINE 00:00:00 [place] [facility] SARS-COV-2 COVID-19 2020-07-17 Completed Unive rsity of MODERNA VACCINE 00:00:00 [facility] ical Branch Vital Signs Vital Name Observation Time Observation Value Comments Source Systolic blood 2022-11-05 19:10:00 141 mm[Hg] Univer sity of pressure [facility] Diastolic blood 2022-11-05 19:10:00 80 mm[Hg] Unive rsity of pressure [facility] Heart rate 2022-11-05 19:07:00 86 /min [facility] Body temperature 2022-11-05 19:07:00 36.67 Kelly Univ ersity of [facility] Respiratory rate 2022-11-05 19:07:00 16 /min Univ ersity [facility] Body height 2022-11-05 19:07:00 167.6 cm Universi ty [facility] Body weight 2022-11-05 19:07:00 146.654 kg Universi ty of [facility] BMI 2022-11-05 19:07:00 52.18 kg/m2 [facility] Oxygen saturation in 2022-11-05 19:07:00 97 /min University of Arterial blood by [facility] Pulse oximetry Branch Systolic blood 2022-06-17 19:42:00 124 mm[Hg] Univer sity of pressure [facility] Diastolic blood 2022-06-17 19:42:00 56 mm[Hg] Unive rsity of pressure [facility] Heart rate 2022-06-17 19:42:00 83 /min [facility] Body temperature 2022-06-17 19:42:00 36.5 Kelly Univ ersity of [facility] Respiratory rate 2022-06-17 19:42:00 18 /min Univ ersity of [facility] Body height 2022-06-17 19:42:00 167.6 cm [facility] Body weight 2022-06-17 19:42:00 143.427 kg [facility] BMI 2022-06-17 19:42:00 51.04 kg/m2 [facility] Oxygen saturation in 2022-06-17 19:42:00 98 /min University of Arterial blood by [facility] Pulse oximetry Branch Systolic blood 2022-05-27 17:16:00 116 mm[Hg] Univer sity of pressure [facility] Diastolic blood 2022-05-27 17:16:00 74 mm[Hg] Unive rsity of pressure [facility] Heart rate 2022-05-27 17:16:00 78 /min [facility] Body temperature 2022-05-27 17:16:00 36.44 Kelly Univ ersity of [facility] Respiratory rate 2022-05-27 17:16:00 18 /min Univ ersity of [facility] Body height 2022-05-27 17:16:00 167.6 cm [facility] Body weight 2022-05-27 17:16:00 141.522 kg [facility] BMI 2022-05-27 17:16:00 50.36 kg/m2 [facility] Oxygen saturation in 2022-05-27 17:16:00 98 /min University of Arterial blood by [facility] yvon Pulse oximetry Branch Systolic blood 2022-03-13 00:46:00 128 mm[Hg] Univer sity of pressure [facility] Diastolic blood 2022-03-13 00:46:00 84 mm[Hg] Unive rsity of pressure [facility] Heart rate 2022-03-13 00:46:00 94 /min [facility] [place] [facility] [place] Body temperature 2022-03-13 00:46:00 37.28 Kelly Univ ersity of [facility] Respiratory rate 2022-03-13 00:46:00 18 /min Univ ersity of [facility] Body height 2022-03-13 00:46:00 167.6 cm Universi ty of [facility] Body weight 2022-03-13 00:46:00 143.881 kg [facility] BMI 2022-03-13 00:46:00 51.20 kg/m2 [facility] Oxygen saturation in 2022-03-13 00:46:00 99 /min University of Arterial blood by [facility] Pulse oximetry Branch Systolic blood 2022-02-28 21:18:00 121 mm[Hg] Univer sity of [facility] Diastolic blood 2022-02-28 21:18:00 71 mm[Hg] Unive rsity of [facility] Heart rate 2022-02-28 21:18:00 83 /min [facility] Body height 2022-02-28 21:18:00 167.6 cm [facility] Body weight 2022-02-28 21:18:00 143.7 kg [facility] BMI 2022-02-28 21:18:00 51.13 kg/m2 [facility] Oxygen saturation in 2022-02-28 21:18:00 98 /min University of Arterial blood by [facility] Pulse oximetry Branch Procedures Procedure Date / Time Performed Performing Clinician [facility] e CONSENT/REFUSAL FOR 2022-11-05 19:03:01 Doctor Unassigned, No Un [facility] DIAGNOSIS AND Name Medical Branch TREATMENT FLU VACC ([id number]), 2022-06-17 20:23:07 Liliane Jacobsen [facility] [place] 6 MO-64 YRS, .5ML, Medical Branc h IM, QUAD (FLUCELVAX) XR FOOT 3+ VW RIGHT 2022-03-13 01:01:01 Cruz Cheung of [facility] Encounters Start End Encounter Admission Attending Care Care Encounter Source Date/Time Date/Time Type Type Clinicians Facility Department ID 2022-11-05 2022-11-05 Outpatient R RANDI [facility] [id number] Univers 14:00:00 14:18:57 PRIMITIVO cole [facility] 2022-11-05 2022-11-05 Urgent Primitivo Bryan [facility] 1.2.840.114 [id number] Univers 14:00:00 14:18:57 Care Unknown, Attending HEALTH 350.1.13.10 ity of [place] 4.2.7.2.686 Santosh as CORAZON?BLEA [id number] Ct sulaiman ALEGRIA [address] MEDICAL OFFICE BUILDING 2022-11-05 2022-11-05 Orders Doctor MARTIN 1.2.840.114 [id number] Univers 00:00:00 00:00:00 Only Unassigned, YAMILKA 350.1.13.10 ity of [place] [facility] 4.2.7.2.686 Santosh as [phone] [address] 2022-10-21 2022-10-21 Outpatient R ZEV [facility] [id number] Univers 11:00:00 12:16:28 LILIANE ricci [facility] 2022-10-21 2022-10-21 Telemedici [facility] 1.2.840.114 [id number] Univers 11:00:00 12:16:28 ne Visit Liliane DELGADO 350.1.13.10 ity of [facility] [place].2.[place].2.[place] [id number] Ct sulaiman ZAVALA 044 Branch BUILDING 2022-10-17 2022-10-17 Outpatient R ZEV [facility] [id number] Univers 15:40:00 15:40:00 LILIANE cole [facility] 2022-10-07 2022-10-07 Patient [facility] 1.2.840.114 [id number] Univers 00:00:00 00:00:00 Secure Msg Liliane DELGADO [id number] ity of [facility] [id number] [id number] Ct dical NAL [address] [place] [address] 2022-08-11 2022-08-11 Telephone [facility] 1.2.840.114 [id number] Univers 00:00:00 00:00:00 Ogandrea DELGADO 350.1.13.10 ity of [facility] 4.2.[place].2.[place] [id number] [facility] NAL [address] [place] [address] 2022-06-18 2022-06-18 Telephone [facility] 1.2.840.114 [id number] Univers 00:00:00 00:00:00 [place] 350.1.13.10 ity of [facility] 4.2.7.2.[place] [id number] Ct dicar NAL [address] [place] [address] 2022-06-17 2022-06-17 [facility] [id number] [facility] 13:20:00 14:23:52 LILIANE cole [facility] 2022-06-17 2022-06-17 Office [facility] 1.2.840.114 [id number] Univers 13:20:00 14:23:52 Visit Liliane DELGADO 350.1.13.10 i ty of [facility] 4.2.7.2.[place] [id number] Ct dical NAL [address] [place] [address] 2022-06-17 2022-06-17 Telephone [facility] 1.2.840.114 [id number] Univers 00:00:00 00:00:00 Liliane [place] 350.1.13.10 i ty of [facility] 4.2.7.2.[place] [id number] Ct dical NAL [address] [place] [address] 2022-06-16 2022-06-16 Laboratory Specialist 2, Adc Lab [facility] 1.2.840.114 [id number] Univers 13:30:00 13:45:00 Visit Liliane Jacobsen 350.1.13.10 ity of [facility] 4.2.7.2.[place] [id number] Ct dical NAL 353 [facility] 2022-06-16 2022-06-16 Outpatient R ZEV [facility] [id number] Univers 13:30:00 13:30:00 LILIANE cole [facility] 2022-05-27 2022-05-27 Outpatient R ROXANNE HOOD [facility] [id number] Univers 11:00:00 11:56:22 ROXANNE HOOD [facility] 2022-05-27 2022-05-27 Office Ananth [facility] 1.2.840.114 [id number] Univers 11:00:00 11:56:22 Visit Roxanne DELGADO 350.1.13.10 ity of [facility] 4.2.7.2.[place] [id number] Ct dical NAL 044 [facility] 2022-05-15 2022-05-15 Refill [facility] 1.2.840.114 [id number] Univers 00:00:00 00:00:00 Liliane DELGADO 350.1.13.10 i ty of [facility] 4.2.7.2.[place] [id number] Ct dical NAL 044 [facility] 2022-04-14 2022-04-14 Patient Ananth [facility] 1.2.840.114 [id number] Univers 00:00:00 00:00:00 Secure Msg Roxanne DELGADO 350.1.13.10 ity of [facility] 4.2.7.2.[place] [id number] Ct dical NAL 044 [facility] 2022-04-13 2022-04-13 Refill [facility] 1.2.840.114 [id number] Univers 00:00:00 00:00:00 Peter [place] 350.1.13.10 i ty of [place] 4.2.7.2.686 [place] [facility] [id number] Ct dicminda ZAVALA 044 [facility] 2022-03-14 2022-03-14 Outpatient R RADIOLOGY [facility] [id number] Univers 11:05:16 23:59:00 ity of [facility] 2022-03-14 2022-03-14 Hospital Radiology [facility] 1.2.840.114 [id number] Univers 11:00:00 23:59:00 Encounter [place] 350.1.13.10 ity of [place] 4.2.7.2.[place] [id number] [facility] [address] 2022-03-12 2022-03-12 Outpatient R RODDY [facility] [id number] Univers 19:54:33 23:59:00 CRUZ ity [facility] 2022-03-12 2022-03-12 [facility] 1.2.840.114 [id number] Univers 19:54:33 23:59:00 Encounter [facility] 350.1.13.10 ity of [place] 4.2.7.2.686 Santosh as CORAZON?BLEA [id number] Ct brandonminda ALEGRIA [address] MEDICAL OFFICE [facility] 2022-03-12 2022-03-12 Urgent Roddy [facility] 1.2.840.114 [id number] Univers 20:20:00 20:20:00 Care [place]ross, [facility] with [facility] 350.1.13.10 ity of [place] 4.2.7.2.686 Santosh as CORAZON?BLEA [id number] Ct brandonminda ALEGRIA [address] MEDICAL OFFICE BUILDING 2022-03-12 2022-03-12 Outpatient R RANDI [facility] [id number] Univers 13:00:00 13:00:00 [facility] 2022-02-28 2022-02-28 Outpatient R ZEV [facility] [id number] Univers 16:00:00 16:54:30 LILIANE cole [facility] 2022-02-28 2022-02-28 Office [facility] 1.2.840.114 [id number] Univers 16:00:00 16:54:30 Visit Liliane DELGADO 350.1.13.10 i ty of [place].2.[place] [id number] [facility]44 [facility] 2022-01-22 2022-01-22 [facility] [id number] Univers 13:20:00 13:20:00 PETER [facility] 2022-01-22 2022-01-22 [facility] [id number] Univers 13:20:00 13:20:[address] [facility] 2022-01-20 2022-01-20 Refill [facility] 1.2.840.114 [id number] Univers 00:00:00 00:00:00 Liliane DELGADO 350.1.13.10 i ty of [place] 4[place]2.[place].2.[place] [id number] [address] 2021-12-31 2021-12-31 Laboratory Only, Ang Db Test [facility] 1.2.8 40.114 [id number] Univers 20:30:00 20:45:00 Only Cruz Cheung [facility] 350.1.13.[address] [facility] 4.2.7.2.686 Santosh as CORAZON?BLEA [id number] [facility] [address] MEDICAL OFFICE [facility] 2021-12-31 2021-12-31 Outpatient Chelsea CHEUNG [facility] [id number] Univers 20:30:00 20:35:46 CRUZ ity [facility] 2021-12-18 2021-12-18 Letter Fanta Reilly 1.2.840.114 [id number] Univers 00:00:00 00:00:00 (Out) MONA 350.1.13.10 it y of [facility] 4.2.7.2.686 Santosh as [id number] [address] 2021-12-17 2021-12-17 Outpatient Chelsea CHEUNG [facility] [id number] Univers 18:15:00 18:37:42 CRUZ ity of [facility] 2021-12-17 2021-12-17 Laboratory Only, Ang Db Test [facility] 1.2.8 40.114 [id number] Univers 18:15:00 18:30:00 Only Green, Cruz [facility] 350.1.13.10 ity of [place] 4.2.7.2.686 Santosh as CORAZON?BLEA [id number] Ct dical JORGEEY 370 [facility] OFFICE [facility] 2021-12-07 2021-12-07 Outpatient R [facility] [id number] Univers 15:18:09 23:59:00 DARRELL cole o f [facility] 2021-12-07 2021-12-07 [facility] [id number] Univers 15:18:09 23:59:00 Encounter [facility] 350.1.13.10 ity of [place] 4.2.7.2.686 Santosh as [place]AZON?BLEA [id number] Ct dical JORGEEY 808 [facility] 2021-12-07 2021-12-07 Urgent [facility] 1.2.840.114 [id number] Univers 15:00:00 15:20:00 Care [facility] 350.1.13.10 i ty of [place] 4.2.7.2.686 Santosh as [place]AZON?BLEA [id number] Ct dicminda KNEY 370 [facility] 2021-12-04 2021-12-04 Telephone [facility] 1.2.840.114 [id number] Univers 00:00:00 00:00:00 Liliane [place] 350.1.13.10 i ty [place] [id number] Ct dicminda NAL 044 [facility] 2021-11-29 2021-11-29 Out[facility] [id number] Univers 16:20:00 16:32:04 LILIANE cole [facility] 2021-11-29 2021-11-29 Office [facility] 1.2.840.114 [id number] Univers 16:20:00 16:32:04 Visit Liliane DELGADO 350.1.13.10 i ty of [facility] 4.2.7.2.[place] [id number] Ct dical NAL 044 [facility] 2021-11-29 2021-11-29 Letter Clinic, [facility] UNIVERSIT 1.2.840.114 [id number] Univers 00:00:00 00:00:00 (Out) Neurology Y HEALTH 350.1.13.10 ity of [facility] CLINICS [id number] [place] [phone] [facility] [address] [place] 2021-11-29 2021-11-29 Telephone [facility] [id number] Univers 00:00:00 00:00:00 Liliane DELGADO [id number] i ty of [facility] [id number] [phone] Ct dical NAL 044 [facility] 2021-11-25 2021-11-25 Outpatient Chelsea ACOSTA [facility] [id number] Univers 13:00:00 13:00:00 DILIP cole [facility] 2021-10-29 2021-10-29 Ancillary 2, [employer] [facility] 1.2.840.114 [id number] Univers 09:00:00 09:45:00 Visit Dinorah Cheung [id number] ity of [facility] [id number] [id number] [facility] [address] 2021-10-29 2021-10-29 Outpatient Chelsea CHEUNG [facility] [id number] Univers 09:00:00 09:00:00 DINORAH cole [facility] 2021-10-29 2021-10-29 Office Roddy [facility] 1.2.840.114 [id number] Univers 08:00:00 08:30:00 Visit Dinorah RAMÍREZ 350.1.13.10 i ty of [facility] [place] [id number] [facility] [address] 2021-10-29 2021-10-29 Outpatient Chelsea MITCHELL [facility] [id number] Univers 08:00:00 08:00:00 PORFIRIO nahun [facility] 2021-10-29 2021-10-29 Outpatient R RODDY [facility] [id number] Univers 08:00:00 08:00:00 DINORAH cole [facility] 2021-10-23 2021-10-23 Outpatient R ZEV [facility] [id number] Univers 13:00:00 14:43:04 LILIANE cole [facility] 2021-10-23 2021-10-23 [facility] [id number] Univers 13:00:00 14:43:04 LILIANE nahun [facility] 2021-10-23 2021-10-23 Office [facility] 1.2.840.114 [id number] Univers 13:00:00 14:43:04 Visit Liliane [place]GAD[place] 350.1.13.10 [id number] [phone] Ct sulaiman ZAVALA [facility] Branch BUILDING 2021-10-23 2021-10-23 Out[facility] [id number] Univers 13:00:00 13:00:00 LILIANE cole [facility] 2021-10-23 2021-10-23 Out[facility] [id number] Univers 13:00:00 13:00:00 LILIANE nahun [facility] 2021-10-15 2021-10-15 Urgent Darrell Earl [facility] 1.2.840. 114 [id number] Univers 11:20:00 11:40:00 [facility] 350.1.13.10 ity suhail [place] 4.2.7.2.686 Santosh as [place]?BLEA [phone] Ct dical JORGEEY [address] MEDICAL OFFICE BUILDING 2021-10-15 2021-10-15 Outpatient R RAJAT [facility] [id number] Univers 11:20:00 11:20:00 DARRELL roman f [facility] 2021-10-14 2021-10-14 Outpatient R ROXANNE HOOD [facility] [id number] Univers 16:00:00 16:55:06 ROXANNE HOOD [facility] 2021-10-14 2021-10-14 Office Ananth [facility] 1.2.840.114 [id number] Univers 16:00:00 16:55:06 Visit Kemietiennecorwin [place] 350.1.13.10 ity [facility] [id number] PROF[place] [phone] Ct dical NAL 044 [facility] 2021-10-14 2021-10-14 Outpatient R ROXANNE HOOD [facility] [id number] Univers 16:00:00 16:55:06 ROXANNE HOOD [facility] 2021-10-08 2021-10-08 Laboratory Specialist 2, Adc Lab [facility] 1.2.840.114 [id number] Univers 14:15:00 14:30:00 Visit Liliane Jacobsen 350.1.13.10 itnahun [facility] [id number] [phone] Ct dicminda [facility] 353 [facility] 2021-10-08 2021-10-08 Outpatient R ZEV [facility] [id number] Univers 13:00:00 14:07:27 LILIANE [facility] 2021-10-08 2021-10-08 Office [facility] 1.2.840.114 [id number] Univers 13:00:00 14:07:27 Visit Liliane DELGADO 350.1.13.10 i ty [facility] [id number] [id number] Ct dical NAL [address] [place] [address] 2021-10-08 2021-10-08 Outpatient R ZEV [facility] [id number] Univers 13:00:00 14:07:27 LILIANE [facility] 2021-10-08 2021-10-08 Outpatient R ZEV [facility] [id number] Univers 13:00:00 13:00:00 LILIANE [facility] 2021-09-19 2021-09-19 Patient Ananth [facility] 1.2.840.114 [id number] Univers 00:00:00 00:00:00 Secure Msg Roxanne DELGAD[place] 350.1.13.10 ity [place] [id number] Ct dicminda ZAVALA 044 [facility] 2021-09-18 2021-09-18 Laboratory Specialist 2, Adc Lab [facility] 1.2.840.114 [id number] Univers 14:15:00 14:30:00 Visit Roxanne Hood 350.1.13.1 0 ity of [facility] [id number] [id number] Ct sulaiman ZAVALA 353 [facility] 2021-09-18 2021-09-18 Outpatient R ROXANNE HOOD [facility] [id number] Univers 11:30:00 13:03:09 ROXANNE HOOD ity [facility] 2021-09-18 2021-09-18 Office [facility] 1.2.840.114 [id number] Univers 11:30:00 13:03:09 Visit Roxanne DELGADO 350.1.13.10 ity of [facility] [id number] [id number] Ct sulaiman ZAVALA 044 [facility] 2021-08-28 2021-08-28 Outpatient R RANDI [facility] [id number] Univers 17:22:36 23:59:00 [facility] 2021-08-28 2021-08-28 [facility] 1.2.180.300 [id number] Univers 17:22:36 23:59:00 Encounter Merged with [facility] 350.1.13.10 ity of [place] 4.2.7.2.686 [place]osh as [place]?BLEA [phone] Ct brandonminda RAJI 808 [facility] 2021-08-28 2021-08-28 Urgent [facility] 1.2.840.114 [id number] Univers 17:00:00 17:24:36 Care Merged with [facility] 350.1.13.10 it y [facility] 4.2.7.2.686 [place]?BLEA [phone] [address] OFFICE [facility] 2021-08-28 2021-08-28 Telephone Randi [facility] 1.2.840.114 [id number] Univers 00:00:00 00:00:00 Ranal HEALTH 350.1.13.10 it y of [facility] 4.2.7.2.686 [place]?BLEA [id number] [address] OFFICE [facility] 2021-08-24 2021-08-24 Outpatient R RODDY [facility] [id number] Univers 15:20:00 15:58:37 [facility] 2021-08-24 2021-08-24 Urgent Jonathan De La Fuente [facility] 1.2.840.114 [id number] Univers 15:20:00 15:40:00 Care Roddy [facility] 350.1.13.10 ity of [place] [id number] [place]osh as [place]?BLEA [phone] [address] OFFICE [facility] 2021-08-19 2021-08-19 Nena Farris [facility] 1.2.840.114 [id number] Univers 18:20:00 19:18:00 Care [facility] HEALTH 350.1.13.10 ity of [place] [id number] [place]osh [place]?BLEA [phone] [address] MEDICAL OFFICE [facility] 2021-08-19 2021-08-19 Outpatient Chelsea SAVAGE [facility] [id number] Univers 18:20:00 19:18:00 NENA cole [facility] 2021-08-19 2021-08-19 Orders Doctor SALAZAR 1.2.840.114 [id number] Univers 00:00:00 00:00:00 Only Unassigned, YAMILKA 350.1.13.10 ity of [place] [facility] 4.2.7.2.686 [place]osh as [phone] [address] 2021-07-20 2021-07-20 Out[facility] [id number] Univers 17:15:00 17:33:32 NENA ity [facility] 2021-07-20 2021-07-20 Laboratory Only, Ang Db Test [facility] 1.2.8 40.114 [id number] Univers 17:15:00 17:30:00 Only Nena [place] HEALTH 350.1.13.10 ity [facility] 4.2.7.2.686 [place]?BLEA [phone] Ct sulaiman ALEGRIA [address] MEDICAL OFFICE BUILDING 2021-07-02 2021-07-02 Outpatient R VERONABARTRoss [facility] [id number] Univers 13:30:00 15:12:48 PRIMITIVO [facility] 2021-07-02 2021-07-02 Laboratory Only, Ang Db Test [facility] 1.2.8 40.114 [id number] Univers 13:30:00 13:45:00 Only Primitivo Bryan HEALTH 350.1.13.10 ity of [facility] 4.2.7.2.686 [place]osh as [place]?BLEA [phone] Ct sulaiman ALEGRIA [address] MEDICAL OFFICE BUILDING 2020-10-13 2020-10-13 Hospital [facility] 1.2.840.114 [id number] Univers 19:59:33 23:59:00 Encounter Cruz [place] 350.1.13.10 ity of [place] [id number] [facility] [address] 2020-10-13 2020-10-13 Urgent Provider, Ang Urgent Care [facility] 1.2.840.114 [id number] Univers 19:04:43 19:39:29 Care [facility] 350.1.13.10 ity of [place] [id number] [place] as Professio [phone] Ct sulaiman [facility] [address] 2020-10-13 2020-10-13 Outpatient R RODDY [facility] [id number] Univers 19:00:00 19:00:00 [facility]Z [facility] 2020-07-14 2020-07-14 Laboratory Lab, Adc Fam Pob I [facility] 1.2. 840.114 [id number] Univers 19:43:26 20:03:26 Only Cruz Cheung [facility] 350.1.13.10 ity of [place] [id number] [place] as Profess[place] [phone] [facility] [address] 2020-07-14 2020-07-14 Outpatient R RODDY [facility] [id number] Univers 19:40:00 19:40:00 CRUZ ity [facility] 2020-07-14 2020-07-14 Letter Doctor MARTIN 1.2.840.114 [id number] Univers 00:00:00 00:00:00 (Out) Unassigned, YAMILKA 350.1.13.10 ity of [place] [facility] 4.2.7.2.686 [place] [phone] [place] [address] Branch Results This patient has no known results.
[2022-11-23 01:58] LABS: Hematocrit 29.2 % (36.0-45.0); Lymphocytes % 28.4 % (15.3-44.8); MCV 79.9 fL (80-100); RBC Red Blood Cell Count 3.65 M/uL (3.86-4.86)
[2022-11-23] MEDS ORDERED: MORPHINE 4 MG/ML SYR ONE (02:02)
[2022-11-23] MEDS ORDERED: ONDANSETRON 4 MG/2 ML VIAL ONE (02:02)
[2022-11-23 02:13] LABS: Magnesium 1.8 mg/dL (1.6-2.4); Potassium 3.5 mEq/L (3.5-5.1); Troponin High Sensitivity 4.2 pg/mL (<58.9)
--- NOTE | 2022-11-23 02:55 | ER ---
Nurse's Notes [facility] Name: Nena Peterson Age: 42 yrs Sex: Female : 1980 Arrival Date: 11/23/2022 Time: 01:18 Bed 4 Private MD: Diagnosis: Right-sided chest pain;Right sided upper back pain Presentation: 11/23 01:25 Chief complaint: Patient states: chest pain , upper back pain began at 8pm. Coronavirus kl screen: Vaccine status: Patient reports receiving the 2nd dose of the covid vaccine. Ebola Screen: Patient negative for fever greater than or equal to 101.5 degrees Fahrenheit, and additional compatible Ebola Virus Disease symptoms. Initial Sepsis Screen: Does the patient meet any 2 criteria? No. Patient's initial sepsis screen is negative. Does the patient have a suspected source of infection? No. Patient's initial sepsis screen is negative. Risk Assessment: Do you want to hurt yourself or someone else? Patient reports no desire to harm self or others. 01:25 Method Of Arrival: Ambulatory 01:25 Acuity: KELLY 3 kl 01:53 Onset of symptoms was November 22, 2022 at 21:30. vc1 Triage Assessment: 01:30 General: Appears in no apparent distress. Behavior is calm, cooperative. Pain: Complains of pain in chest Pain currently is 4 out of 10 on a pain scale. at worst was 9 out of 10 on a pain scale. Cardiovascular: Reports chest pain, lightheadedness. 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 - Social history:: Smoking status: Patient denies any tobacco usage or history of. Screenin:51 [facility] ED Fall Risk Assessment (Adult) History of falling in the last 3 months, vc1 including since admission No falls in past 3 months (0 pts) Confusion or Disorientation No (0 pts) Intoxicated or Sedated No (0 pts) Impaired Gait No (0 pts) Mobility Assist Device Used No (0 pt) Altered Elimination No (0 pt) Score/Fall Risk Level 0 - 2 = Low Risk Oriented to surroundings, Maintained a safe environment, Educated pt \T\ family on fall prevention, incl call for assistance when getting out of bed. Abuse screen: Denies threats or abuse. Nutritional screening: No deficits noted. Tuberculosis screening: No symptoms or risk factors identified. Assessment: 01:52 Pain: Complains of pain in chest Pain radiates to thoracic area and right lateral vc1 aspect of neck Pain began gradually, 4 hours ago. Vital Signs: 01:25 Pulse 84; Resp 18; Temp 97.8(TE); Weight 145.15 kg (R); Height 5 ft. 6 in. ; Pain 4/10; kl 01:25 BP 122 / 63; kl 02:00 BP 123 / 58; Pulse 85; Resp 19; Pulse Ox 100% ; vc1 02:30 BP 128 / 64; Pulse 79; Resp 24; Pulse Ox 100% ; Pain 3/10; vc1 01:25 Body Mass Index 51.65 (145.15 kg, 167.64 cm) kl 01:25 Pain Scale: Adult kl 02:30 Pain Scale: Adult vc1 ED Course: 01:22 Patient arrived in ED. [id number] 01:25 Cassie Bustillo MD is Attending Physician. sd2 01:27 Triage completed. kl 01:43 Inserted saline lock: 20 gauge in right antecubital area, using aseptic technique. vc1 Blood collected. 01:50 Eli Marroquin, LISA is Primary Nurse. vc1 01:51 Basic Metabolic Panel Sent. vc1 01:51 CBC with Diff Sent. vc1 01:51 D-Dimer Sent. vc1 01:51 Magnesium Sent. vc1 01:51 Troponin HS Sent. vc1 01:53 Arm band placed on right wrist. vc1 01:54 Patient maintains SpO2 saturation greater than 95% on room air. vc1 01:54 Patient has correct armband on for positive identification. Placed in gown. Bed in low vc1 position. Call light in reach. Side rails up X 1. Client placed on continuous cardiac and pulse oximetry monitoring. NIBP monitoring applied. 02:02 XRAY Chest (1 view) In Process Unspecified. EDMS 02:54 No provider procedures requiring assistance completed. vc1 03:00 IV discontinued, intact, bleeding controlled, No redness/swelling at site. Pressure vc1 dressing applied. Administered Medications: 01:55 Drug: morphine IVP or IV 4 mg Route: IVP; Infused Over: 4 mins; Site: right antecubital;pf1 03:00 Follow up: Response: No adverse reaction; Marked relief of symptoms; Pain is decreased vc1 01:55 Drug: Ondansetron IVP 4 mg Route: IVP; Site: right antecubital; pf1 03:00 Follow up: Response: No adverse reaction; Marked relief of symptoms; Nausea is decreasedvc1 Medication: 01:54 VIS not applicable for this client. vc1 Outcome: 02:55 Discharge ordered by . sd2 03:00 Discharged to home ambulatory. vc1 03:00 Condition: good 03:00 Discharge instructions given to patient, Instructed on discharge instructions, follow up and referral plans. Demonstrated understanding of instructions, follow-up care. 03:06 Patient left the ED. vc1 Signatures: Dispatcher [employer] EDMS Barbara Adorno RN RN kl Jeffries, Jennifer jj6 Eli Marroquin RN RN vc1 Cassie Bustillo MD MD sd2 Lesly correa RN RN pf1
--- NOTE | 2022-11-23 02:55 | EDPHYS ---
Physician Documentation [facility] Name: Nena Peterson Age: 42 yrs Sex: Female : 1980 Arrival Date: 11/23/2022 Time: 01:18 Bed 4 Private MD: ED Physician Cassie Bustillo HPI: 11/23 01:42 This 42 yrs old Female presents to ER via Ambulatory with complaints of Chest Pain, sd2 Neck and Upper Back Pain, Arm Pain, Headache, Irregular Pulse, General Weakness, SLIGHT NUMBNESS/TINGLING OF TONGUE. 01:42 42 yo F presents with CC of R sided chest and back pain that started yesterday and has sd2 been intermittent. She reports she was holding the hand of a 7 year old who pulled on her arm and then started having the pain in her chest. However, it is not elicited by movement of the right arm but does at times radiate into the right arm and right side of the neck. Denies any associated SOB, n/v or diaphoresis. No prior cardiac history personally or in her family. 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 Did recently take a trip to [place] with a 5 hour plane ride and then noticed some R>L leg swelling which has since resolved. Denies leg pain or leg swelling currently. . 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 - Social history:: Smoking status: Patient denies any tobacco usage or history of. ROS: 01:42 Constitutional: Negative for fever, chills, and weight loss, Eyes: Negative for injury, sd2 pain, redness, and discharge, ENT: Negative for injury, pain, and discharge, Cardiovascular: Positive for chest pain and edema, Negative for palpitations Respiratory: Negative for shortness of breath, cough, wheezing. Abdomen/GI: Negative for abdominal pain, nausea, vomiting, diarrhea. 01:42 MS/Extremity: Negative for injury and deformity, Skin: Negative for injury, rash, and discoloration, Neuro: Negative for headache, numbness and tingling. 01:42 Back: Positive for pain at rest, pain with movement, Negative for decreased range of motion. Exam: 01:42 Constitutional: This is a well developed, well nourished patient who is awake, alert, sd2 and in no acute distress. Head/Face: Normocephalic, atraumatic. Eyes: EOMI, normal conjunctiva bilaterally Chest/axilla: Normal chest wall appearance and motion. Nontender with no deformity. However, pressing on outer aspect of R chest wall does cause pain in her back. Cardiovascular: Regular rate and rhythm with a normal S1 and S2. No gallops, murmurs, or rubs. 2+ distal pulses. Respiratory: Lungs have equal breath sounds bilaterally, clear to auscultation and percussion. No rales, rhonchi or wheezes noted. No increased work of breathing, no retractions or nasal flaring. Abdomen/GI: Soft, non-tender, with normal bowel sounds. No guarding or rebound. No evidence of tenderness throughout. Back: No spinal tenderness. No costovertebral tenderness. Full range of motion. Localized pinpoint area of pain to R medial shoulder blade, non-tender to palpation. Skin: Warm, dry with normal turgor. Normal color with no rashes, no lesions, and no evidence of cellulitis. MS/ Extremity: Pulses equal, no cyanosis. Neurovascular intact. Full, normal range of motion. Ambulatory without difficulty. Psych: Awake, alert, with orientation to person, place and time. Behavior, mood, and affect are within normal limits. 02:34 ECG was reviewed by the Attending Physician. NSR, rate 82, no STEMI criteria, TWI in sd2 lead III Vital Signs: 01:25 Pulse 84; Resp 18; Temp 97.8(TE); Weight 145.15 kg (R); Height 5 ft. 6 in. ; Pain 4/10; kl 01:25 BP 122 / 63; kl 02:00 BP 123 / 58; Pulse 85; Resp 19; Pulse Ox 100% ; vc1 02:30 BP 128 / 64; Pulse 79; Resp 24; Pulse Ox 100% ; Pain 3/10; vc1 01:25 Body Mass Index 51.65 (145.15 kg, 167.64 cm) kl 01:25 Pain Scale: Adult kl 02:30 Pain Scale: Adult vc1 MDM: 01:41 Patient medically screened. sd2 01:42 Differential diagnosis: Differential diagnosis includes but is not limited to: ACS, sd2 DVT/PE, pneumothorax, dissection, musculoskeletal, anxiety, anemia, electrolyte abnormality, pneumonia, CHF, COPD among others. HEART Score: History: Slightly Suspicious (0), ECG: Age: < or = 45 years (0), Risk Factors: 1 or 2 risk factors (1), Troponin:. The patient was not given aspirin in the Emergency Department. Patient reports taking aspirin within the past 24 hours. Data reviewed: vital signs, nurses notes, lab test result(s), EKG, radiologic studies. I considered the following discharge prescriptions or medication management in the emergency department Medications were administered in the Emergency Department. See SEP. 02:52 Consideration of Admission/Observation Escalation of care including sd2 admission/observation considered. Independent interpretation of the following test(s) in the Emergency Department X-Ray: My interpretation is no acute change. Test considered but Not performed: CT: D-dimer neg, no indication. Counseling: I had a detailed discussion with the patient and/or guardian regarding: the historical points, exam findings, and any diagnostic results supporting the discharge/admit diagnosis, lab results, radiology results, the need for outpatient follow up, to return to the emergency department if symptoms worsen or persist or if there are any questions or concerns that arise at home. Response to treatment: the patient's symptoms have mildly improved after treatment. ED course: Labs and imaging reviewed with patient. She is feeling improved. No indication of cardiac etiology at this time and D-dimer negative as well as troponin. Pt with no current active CP at time of my repeat evaluation. She is comfortable with plan for discharge and outpatient follow up. Verbalizes understanding of strict return precautions. . 11/23 01:41 Order name: Basic Metabolic Panel; Complete Time: 02:15 sd2 11/23 01:41 Order name: CBC with Diff; Complete Time: 02:15 sd2 11/23 01:41 Order name: D-Dimer; Complete Time: 02:15 11/23 01:41 Order name: Magnesium; Complete Time: 02:15 11/23 01:41 Order name: Troponin HS; Complete Time: 02:15 11/23 01:41 Order name: XRAY Chest (1 view) 11/23 01:41 Order name: EKG; Complete Time: 01:42 11/23 01:41 Order name: Cardiac monitoring; Complete Time: 01:50 11/23 01:41 Order name: EKG - Nurse/Tech; Complete Time: 01:50 11/23 01:41 Order name: IV Saline Lock; Complete Time: 01:50 11/23 01:41 Order name: Labs collected and sent; Complete Time: 01:51 11/23 01:41 Order name: O2 Per Protocol; Complete Time: 01:51 11/23 01:41 Order name: O2 Sat Monitoring; Complete Time: 01:51 sd2 Administered Medications: 01:55 Drug: morphine IVP or IV 4 mg Route: IVP; Infused Over: 4 mins; Site: right antecubital;pf1 03:00 Follow up: Response: No adverse reaction; Marked relief of symptoms; Pain is decreased vc1 01:55 Drug: Ondansetron IVP 4 mg Route: IVP; Site: right antecubital; pf1 03:00 Follow up: Response: No adverse reaction; Marked relief of symptoms; Nausea is decreasedvc1 Disposition Summary: 11/23/22 02:55 Discharge Ordered Location: Home sd2 Problem: new sd2 Symptoms: have improved sd2 Condition: Stable sd2 Diagnosis - Right-sided chest pain sd2 - Right sided upper back pain sd2 Followup: sd2 - With: Private Physician - When: 2 - 3 days - Reason: Recheck today's complaints, Continuance of care, Re-evaluation by your physician Discharge Instructions: - Discharge Summary Sheet sd2 - Acute Back Pain, Adult sd2 - Nonspecific Chest Pain, Adult sd2 Forms: - Medication Reconciliation Form sd2 - Thank You Letter sd2 - Antibiotic Education sd2 - Prescription Opioid Use sd2 Signatures: Dispatcher [employer] Barbara Saunders RN RN kl Dunlop, Stephanie, MD MD sd2 correa, Lesly, RN RN pf1 Calcote, Eli RN vc1
[2022-11-23 03:10] VITALS: TEMP 97.8
[2022-11-23 03:12] VITALS: O2SAT 100
[2022-11-23 03:14] VITALS: BP 128/64
--- NOTE | 2022-11-23 14:43 | EKG ---
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
--- NOTE | 2022-11-25 14:28 | RAD REPORT ---
EXAM DESCRIPTION: Chest Single View CLINICAL HISTORY: 42 years Female CHEST PAIN COMPARISON: None FINDINGS: Lung volumes adequate. Cardiac silhouette is normal in size. No pneumothorax. No large pleural effusion. No focal consolidation. No acute bony finding. IMPRESSION: No acute cardiopulmonary findings. Electronically signed by: Sandy Hoff MD 11/23/2022 2:17 AM CDT Due to temporary technical issues with the PACS/Fluency reporting system, reports are being signed by the in house radiologist without review as a courtesy to ensure prompt reporting. The interpreting r adiologist is fully responsible for the content of the report.
== END 2022-11-23 03:06 | disposition home or self-care (01) ==
LOC: ER 01:18
DX: R07.89 Other chest pain (principal); M54.9 Dorsalgia, unspecified; Z91.040 Latex allergy status; Z91.048 Other nonmedicinal substance allergy status
CPT/HCPCS: 93005; 85025; 80048; 36415; 83735; 85379; 84484; 71045; 96375; 96374; 99285; J2405

== ENCOUNTER 2025-05-01 00:34 | Emergency (ER) | payer BC ==
--- OUTSIDE RECORDS SUMMARY | 2025-05-01 00:47 | XMS REPORT | Continuity of Care Document ---
Author Name Unknown Address [address] [place] [address] [facility] Address [address] [place] [address] Care Team Providers Care Technical Support Manager Name Role Phone LILIANE BROTHERS Primary Care Physician UnavailCRUZ Minaya Attending Clinician Unavailable Liliane Brothers MD Attending Clinician [phone] Doctor Unassigned, [place] Attending Clinician U quang Hood INTERNET RETAILER, Roxanne Attending Clinician [phone] Veronica Pat CPhT Attending Clinician Unava ilROXANNE Stevens Attending Clinician Unavailab ROXANNE Marion Attending Clinician Unavailab Mei Collins CPhT Attending Clinician Unavail able Devante Roman Attending Clinician [phone] Unknown, Attending Attending Clinician Unavailab DEVANTE Yuen Attending Clinician Unavailable SHAISTA VAUGHN Attending Clinician UnavailSHAISTA [place] Attending Clinician Unavailloco e 2, [facility] Attending Clinician Unavailable Richard Joshi PT Attending Clinician Unavailable Shaista Vaughn MD Attending Clinician [phone] RAMILA DUNCAN Attending Clinician Unavailabl e Randi SHEEP RANCHER, Primitivo Attending Clinician [phone] Unknown, Attending Attending Clinician Unavailab PRIMITIVO Abreu Attending Clinician Unavailable Tavares FULLER, Lisa Gómez Attending Clinician Unavail able Estella STEVENS, Shaista Dykes Attending Clinician [phone] Tavares SALES FORCE ADMINISTRATOR, Zeus Torre Attending Clinician Unavaila tasha Arias PT, Brianda Attending Clinician Unavailabl Liliane Steele MD Attending Clinician + John PT, Krystyna Martínez Attending Clinician Unavailab mellissa Sandhu PT, Stacy Attending Clinician Un available Doctor Unassigned, [place] Attending Clinician U quang Pang SHEEP RANCHER, Rebecca Attending Clinician + REBECCA PANG Attending Clinician Unavailable 2, [facility] Attending Clinician Unavailable LILIANE BROTHERS Attending Clinician Unavailable RADIOLOGY Attending Clinician Unavailable Radiology Attending Clinician Unavailable Roddy SHEEP RANCHER, Cruz Attending Clinician [phone] Only, Isauro Db Test Attending Clinician Unavailabl bigg Reilly RN, Fanta Attending Clinician Unavailable DARRELL EARL Attending Clinician Unavailabl e Claudy SHEEP RANCHER, Darrell Attending Clinician [phone] Clinic, [facility] Neurology Continuity Attending Filippo silva Unavailable DILIP ACOSTA Attending Clinician Unavailable 2, [employer] Attending Clinician Marcela vailable Dinorah Pereyra PA-C Attending Clinician [phone] DINORAH PEREYRA Attending Clinician Unavailable PORFIRIO MITCHELL Attending Clinician Unavailable Nena Savage MD Attending Clinician [phone] King GLYNN MD, James C Attending Clinician [phone] NENA SAVAGE Attending Clinician Unavailable Provider, [facility] Attending Clinician Un available Lab, [facility] Attending Clinician Unavailab ROXANNE [place] Admitting Clinician Unavailab ADOLPH Black Admitting Clinician Unavailabl e Payers Payer Name Policy Type Policy Number Effective Date Expirati on Date Source [facility] [employer] PL[facility] [id number] 2020 00:00:00 Problems Condition Name Condition Details Condition Category Status Onset Date Resolution Date Last Treatment Date Treating Clinician Comments Source Restless Restless Disease Active 9-12 00:00: [facility] pain of left shoulder Acute pain of left shoulder Disease Active 2021-07 2- 00:00: 00 [facility] Right elbow pain Right elbow pain Disease Active 2021-07 2- 00:00: 00 [facility] Left arm pain Left arm pain Disease Active 2021-07 2- 00:00: 00 [facility] Acute pain of left shoulder Acute pain of left shoulder Disease Active 2021-07 2- 00:00: 00 [facility] Chronic midline low back pain without sciatica Chronic midline low back pain without sciatica Disease Active 8- 00:00: 00 [facility] Other iron deficiency anemia Other iron deficiency anemia Disease Active 8- 00:00: 00 [facility] Encounter for screening mammogram for malignant neoplasm of breast Encounter for screening mammogram for malignant neoplasm of breast Disease Active 5-20 00:00: 00 [facility] Screening for malignant neoplasm of the cervix Screening for malignant neoplasm of the cervix Disease Active 5-20 00:00: 00 [facility] Acute diffuse otitis externa of both ears Acute diffuse otitis externa of both ears Disease Active 4-13 00:00: 00 [facility] Bilateral lower extremity edema Bilateral lower extremity edema Disease Active 4-13 00:00: 00 [facility] Mild anxiety Mild anxiety Disease Active 10-08 00:00: 00 [facility] Anxiety with agitation Anxiety with agitation Disease Active 10-08 00:00: 00 [facility] Severe obesity (BMI >= 40) Severe obesity (BMI >= 40) Disease Active 10-08 00:00: 00 [facility] Cervicalgi a Cervicalgi a Disease Active 3 00:00: 00 [facility] Vertigo Vertigo Disease Active 10-08 00:00: 00 [facility] Fatigue, unspecifie d type Fatigue, unspecifie d type Disease Active 10-08 00:00: 00 [facility] Migraine without aura and without status migrainosu s, not intractabl e Migraine without aura and without status migrainosu s, not intractabl e Disease Active 10-08 00:00: 00 [facility] Essential hypertensi on Essential hypertensi on Disease Active 10-08 00:00: 00 [facility] Attention deficit hyperactiv ity disorder (ADHD), combined type Attention deficit hyperactiv ity disorder (ADHD), combined type Disease Active 10-08 00:00: 00 [facility] Anxiety and depression Anxiety and depression Disease Active 10-08 00:00: 00 [facility] Vitamin D deficiency Vitamin D deficiency Disease Active 10-08 00:00: 00 [facility] Other specified nutritiona l anemias Other specified nutritiona l anemias Disease Active 10-08 00:00: 00 [facility] Back pain without radiation Back pain without radiation Disease Active 03-05 00:00: 00 [facility] Chronic pain disorder Chronic pain disorder Disease Active 7 00:00: 00 [facility] Allergies, Adverse Reactions, Alerts Allergy Name Allergy Type Status Severity Reaction(s) Onset Date Inactive Date Treating Clinician Comments Source Latex Propensi ty to adverse reaction s Active Hives 03-12 00:00: 00 [facility] Adhesive Propensi ty to adverse reaction s Active Rash 03-12 00:00: 00 [facility] Adhesive Propensi ty to adverse reaction s Active Rash 03-12 00:00: 00 [facility] ADHESIVE Drug Class Active Rash 03-12 00:00: 00 [facility] LATEX DRUG INGREDI Active Hives 03-12 00:00: 00 [facility] Adhesive Propensi ty to adverse reaction s Active Rash 03-12 00:00: 00 [facility] LATEX, NATURAL RUBBER Drug Class Active Low Rash 12-15 00:00: 00 [facility] Latex, Natural Rubber Propensi ty to adverse reaction s Active Rash 12-15 00:00: 00 [facility] Social History Social Habit Start Date Stop Date Quantity Comments Source Gender identity [facility] Alcoholic beverage intake 2025-03-31 00:00:00 2025-03-31 00:00:00 Ex-drinker (finding) [facility] History of Social function 2025-02-03 00:00:00 2025-02-03 00:00:00 [facility] Alcohol intake 2023-04-20 00:00:00 2023-04-20 00:00:00 Ex-drinker (finding) [facility] Exposure to SARS-CoV-2 (event) 2022-10-26 00:00:00 2022-11-05 14:03:00 Not sure [facility] Tobacco use and exposure 2022-02-28 00:00:00 2022-02-28 00:00:00 Smokeless tobacco non-user [facility] History SDOH Alcohol Frequency 2021-09-18 00:00:00 2021-09-18 00:00:00 2 [facility] History SDOH Alcohol Std Drinks 2021-09-18 00:00:00 2021-09-18 00:00:00 1 [facility] History SDOH Alcohol Binge 2021-09-18 00:00:00 2021-09-18 00:00:00 1 [facility] Alcohol Comment 2017-04-30 00:00:00 2017-04-30 00:00:00 Occasional Drinker [facility] Sex assigned at 1980 00:00:00 1980 00:00:00 [facility] Smoking Status Start Date Stop Date Source Never smoked tobacco [facility] Medications Ordered Medication Name Filled Medication Name Start Date Stop Date Current Medication? Ordering Clinician Indication Dosage Frequency Signature (SIG) Comments Components Source ketorolac (TORADOL) 30 mg/mL (1 mL) injection 30 mg 04-01 00:00: 00 03-31 22:57 :00 No [id number] 30mg 30 mg, Intramuscu lar, ONCE, 1 dose, On Thu03/31/25 at 1900, Routine [facility] methylPREDN ISolone (MEDROL, EDWIN,) 4 mg tablets 03-31 00:00: 00 Yes [id number] Take by mouth SEE-INSTRU CTIONS. follow package directions [facility] traMADoL 50 mg tablet 03-31 00:00: 00 04-08 04:59 :00 Yes [id number] 50mg Take 1 tablet by mouth every 8 hours as needed for Pain (scale 4-6) for up to 7 days. [facility] tirzepatide 5 mg/0.5 mL subcutaneou s injection pen tirzepatide 5 mg/0.5 mL subcutaneou s injection pen 03-17 00:00: 00 Yes [id number] 5mg Inject 5 mg under the skin weekly. [facility] tirzepatide 2.5 mg/0.5 mL subcutaneou s injection tirzepatide 2.5 mg/0.5 mL subcutaneou s injection 03-05 00:00: 00 Yes [id number] 5mg inject 5 mg under the skin weekly. 2nd dose [facility] tirzepatide 5 mg/0.5 mL subcutaneou s injection pen tirzepatide 5 mg/0.5 mL subcutaneou s injection pen 03-05 00:00: 00 03-09 00:00 :00 Yes [id number] 5mg inject 5 mg under the skin weekly. [facility] phentermine -topiramate (QSYMIA) 7.5-46 mg per capsule phentermine -topiramate (QSYMIA) 7.5-46 mg per capsule 02-17 00:00: 00 02-03 00:00 :00 Yes [id number] 1{capsu le} Take 1 capsule by mouth in the morning. 2nd dose [facility] cyanocobala min 1,000 mcg/mL injection 02-03 00:00: 00 Yes [id number] 1000ug inject 1 mL under the skin every 14 days. Twice monthly. [facility] Syringe-Nee dle, Safety,Disp Un 3 mL 25 gauge x 5/8" Syrg 02-03 00:00: 00 Yes [id number] Use as directed [facility] lisinopriL 10 mg tablet 02-03 00:00: 00 Yes [id number] 10mg Take 1 tablet by mouth in the morning. [facility] hydroCHLORO thiazide 12.5 mg tablet 02-03 00:00: 00 Yes [id number] 12.5mg Take 1 tablet by mouth in the morning. [facility] busPIRone 5 mg tablet 02-03 00:00: 00 Yes [id number] 5mg Take 1 tablet by mouth every morning and evening. [facility] tirzepatide 2.5 mg/0.5 mL subcutaneou s injection tirzepatide 2.5 mg/0.5 mL subcutaneou s injection 02-03 00:00: 00 03-09 04:59 :00 Yes [id number] 2.5mg inject 2.5 mg under the skin weekly [facility] phentermine -topiramate (QSYMIA) 3.75-23 mg per capsule phentermine -topiramate (QSYMIA) 3.75-23 mg per capsule 02-03 00:00: 00 02-03 00:00 :00 Yes [id number] 1{capsu le} Take 1 capsule by mouth in the morning. 1st dose [facility] naltrexone- bupropion 8-90 mg per tablet 01-30 00:00: 00 02-03 00:00 :00 No [id number] Take 1 tablet by mouth daily for 7 days, THEN 1 tablet 2 times daily for 7 days, THEN 2 tablets 2 times daily for 30 days. [facility] tirzepatide 2.5 mg/0.5 mL subcutaneou s injection tirzepatide 2.5 mg/0.5 mL subcutaneou s injection 01-27 00:00: 00 02-03 00:00 :00 No [id number] 2.5mg inject 2.5 mg under the skin weekly for 4 weeks. [facility] dexamethaso ne (DECADRON) 10 mg/mL injection 10 mg 12-20 21:30: 00 12-20 20:43 :00 No [id number] 10mg 10 mg, Intramuscu lar, ONCE, 1 dose, On Thu12/20/24 at 1630, Routine [facility] ketorolac (TORADOL) injection 30 mg 12-20 21:15: 00 12-20 20:41 :00 No [id number] 30mg 30 mg, Intramuscu lar, ONCE, 1 dose, On Thu12/20/24 at 1615, Routine [facility] orphenadrin e 100 mg SR tablet 12-20 00:00: 00 Yes [id number] 100mg Take 1 tablet by mouth in the morning and 1 tablet in the evening. [facility] naproxen sodium 550 mg tablet 12-20 00:00: 00 02-03 00:00 :00 No [id number] 550mg Take 1 tablet by mouth in the morning and 1 tablet in the evening. Take with meals. [facility] traMADoL 50 mg tablet 12-20 00:00: 00 12-28 04:59 :00 No [id number] 50mg Take 1 tablet by mouth every 6 hours as needed for Pain (scale 7-10) for up to 7 days. Indication s: acute pain [facility] predniSONE 20 mg tablet 12-20 00:00: 00 12-26 04:59 :00 No [id number] 60mg Take 3 tablets by mouth in the morning for 5 days. [facility] busPIRone 5 mg tablet 12-13 00:00: 00 02-03 00:00 :00 No [id number] 5mg TAKE 1 TABLET BY MOUTH IN THE MORNING AND IN THE EVENING [facility] amoxicillin -clavulanat e (AUGMENTIN) 875-125 mg per tablet 2023-07 00:00: 00 07-11 05:59 :00 No [id number] 1{tbl} Take 1 tablet by mouth in the morning and 1 tablet in the evening. Do all this for 10 days. [facility] fluticasone propionate 50 mcg/actuati on nasal spray 2023-07 00:00: 00 07-08 05:59 :00 No [id number] 1{spray } Use 1 [place] in each nostril in the morning for 7 days. [facility] codeine-gua ifenesin 10-100 mg/5 mL oral solution 2023-07 00:00: 00 07-06 05:59 :00 No 5mL Take 5 mL by mouth every 6 (six) hours as needed for Cough for up to 5 days. Indication s: cough [facility] busPIRone 5 mg tablet 2023-07 0- 00:00: 00 12-13 00:00 :00 No [id number] 5mg TAKE 1 TABLET BY MOUTH IN THE MORNING AND IN THE EVENING [facility] lisinopriL- hydrochloro thiazide 10-12.5 mg per tablet 9-10 00:00: 00 02-03 00:00 :00 No [id number] .5{tbl} Take 0.5 tablets by mouth in the morning. [facility] pantoprazol e 40 mg EC tablet 02-23 00:00: 00 Yes [id number] 40mg Take 1 tablet by mouth in the morning. [facility] meloxicam 15 mg tablet 02-23 00:00: 00 Yes [id number] 15mg Take 1 tablet by mouth once daily as needed for Pain (scale 7-10). [facility] calcium carbonate (CALCIUM 500) 500 mg calcium (1,250 mg) chewable tablet 02-23 00:00: 00 Yes [id number] 1{tbl} Take 1 tablet by mouth in the morning. [facility] ergocalcife rol, vitamin d2, 1,250 mcg (50,000 unit) capsule 02-23 00:00: 00 Yes [id number] 96378Z Take 1 capsule by mouth weekly. [facility] cyclobenzap rine 10 mg tablet 02-23 00:00: 00 12-20 00:00 :00 No [id number] 10mg Take 1 tablet by mouth 2 (two) times daily as needed for Muscle Spasms. [facility] busPIRone 5 mg tablet 02-23 00:00: 00 05-02 00:00 :00 No [id number] 5mg Take 1 tablet by mouth in the morning and 1 tablet in the evening. [facility] methylPREDN ISolone (MEDROL, EDWIN,) 4 mg tablets 01-06 00:00: 00 02-23 00:00 :00 No [id number] Take by mouth SEE-INSTRU CTIONS. follow package directions [facility] amoxicillin -clavulanat e (AUGMENTIN) 875-125 mg per tablet 01-06 00:00: 00 01-17 04:59 :00 No [id number] 1{tbl} Take 1 tablet by mouth in the morning and 1 tablet in the evening. Do all this for 10 days. [facility] dexamethaso ne (DECADRON) injection 8 mg 12-21 18:45: 00 12-21 18:01 :00 No [id number] 8mg 8 mg, Intramuscu lar, ONCE, 1 dose, On Thu12/22/23 at 1345, Routine [facility] neomycin-po lymyxin-hyd rocortisone otic solution 12-21 00:00: 00 02-03 00:00 :00 No [id number] 3[drp] Place 3 Drops in both ears 4 (four) times daily. [facility] metroNIDAZO LE (FLAGYL) 500 mg tablet 2022-07 009 00:00: 00 04-28 04:59 :00 No [id number] 500mg Take 1 tablet by mouth every 12 (twelve) hours for 7 days. [facility] sucralfate 1 gram tablet 2022-07 0-09 00:00: 00 04-28 04:59 :00 No [id number] 1g Take 1 tablet by mouth before meals and at bedtime for 7 days. [facility] dextroamphe tamine-amph etamine 20 mg tablet 04-09 00:00: 00 02-03 00:00 :00 No [id number] 20mg Take 1 tablet by mouth in the morning. [facility] ferrous sulfate 325 mg (65 mg iron) tablet 04-03 00:00: 00 02-03 00:00 :00 No [id number] 325mg Take 1 tablet by mouth in the morning and 1 tablet in the evening. [facility] meloxicam 7.5 mg tablet 04-03 00:00: 00 02-23 00:00 :00 No [id number] 7.5mg Take 1 tablet by mouth in the morning. [facility] dextroamphe tamine-amph etamine 20 mg tablet 04-01 00:00: 00 04-09 00:00 :00 No [id number] 20mg Take 1 tablet by mouth in the morning. [facility] furosemide 20 mg tablet 03-24 00:00: 00 Yes [id number] 20mg Take 1 tablet by mouth once daily as needed (qDay PRN Bilateral Low Extremity Edema). [facility] calcium carbonate (CALCIUM 500) 500 mg calcium (1,250 mg) chewable tablet 03-24 00:00: 00 02-23 00:00 :00 No [id number] 1{tbl} Take 1 tablet by mouth in the morning. [facility] ergocalcife rol, vitamin d2, 1,250 mcg (50,000 unit) capsule 03-24 00:00: 00 02-23 00:00 :00 No [id number] 61747S Take 1 capsule by mouth weekly. [facility] cyclobenzap rine 10 mg tablet 03-24 00:00: 00 02-23 00:00 :00 No [id number] 10mg Take 1 tablet by mouth 2 (two) times daily as needed for Muscle Spasms. [facility] Diclofenac Sodium (VOLTAREN) 1 % gel 03-24 00:00: 00 04-03 00:00 :00 No [id number] Apply to area(s) 4 (four) times daily. Apply 4 g qid [facility] lidocaine 5 % ointment 03-24 00:00: 00 04-03 00:00 :00 No [id number] Apply 2g to affected areas BID PRN [facility] lisdexamfet amine (VYVANSE) 10 mg Cap 03-24 00:00: 00 04-01 00:00 :00 No [id number] 10mg Take 10 mg by mouth every morning. [facility] ketorolac (TORADOL) injection 60 mg 02-20 19:15: 00 02-20 18:28 :00 No [id number] 60mg [facility] cyclobenzap rine 10 mg tablet 02-20 00:00: 00 03-24 00:00 :00 No [id number] 10mg Take 1 tablet by mouth 2 (two) times daily as needed for Muscle Spasms. [facility] Nitrofurant oin&Nit. Macrocryst 100 mg capsule 02-20 00:00: 00 02-28 04:59 :00 No [id number] 100mg Take 1 capsule by mouth in the morning and 1 capsule in the evening. Do all this for 7 days. [facility] dicyclomine 20 mg tablet 02-20 00:00: 00 02-20 00:00 :00 No [id number] 20mg Take 1 tablet by mouth 4 (four) times daily as needed for Abdominal pain. [facility] lisinopriL- hydrochloro thiazide 10-12.5 mg per tablet 7-06 00:00: 00 03-22 00:00 :00 No [id number] .5{tbl} Take 0.5 tablets by mouth in the morning. [facility] amoxicillin 875 mg tablet 4-26 00:00: 00 11-16 04:59 :00 No [id number] 875mg Take 1 tablet by mouth in the morning and 1 tablet in the evening. Do all this for 10 days. [facility] lisdexamfet amine (VYVANSE) 10 mg Cap 4-11 00:00: 00 03-24 00:00 :00 No [id number] 10mg Take 10 mg by mouth every morning. [facility] calcium carbonate (CALCIUM 500) 500 mg calcium (1,250 mg) chewable tablet 08-14 00:00: 00 03-24 00:00 :00 No [id number] 1{tbl} Take 1 tablet by mouth in the morning. [facility] ergocalcife rol, vitamin d2, 1,250 mcg (50,000 unit) capsule 08-14 00:00: 00 03-24 00:00 :00 No [id number] Take 1 capsule by mouth weekly. [facility] dextroamphe tamine-amph etamine 20 mg tablet 2- 00:00: 00 10-21 00:00 :00 No [id number] 20mg Take 1 tablet by mouth in the morning. [facility] lidocaine HCL 4 % Oint 2021-07 2-14 00:00: 00 03-24 00:00 :00 No [id number] 2g Apply 2 g to area(s) 2 (two) times daily as needed (Apply 2g to affected areas PRN). [facility] furosemide 20 mg tablet 2021-07 2- 00:00: 00 03-24 00:00 :00 No [id number] 20mg Take 1 tablet by mouth once daily as needed (qDay PRN Bilateral Low Extremity Edema). [facility] lisinopriL- hydrochloro thiazide 10-12.5 mg per tablet 2021-07 2-06 00:00: 00 01-15 00:00 :00 No [id number] .5{tbl} Take 0.5 tablets by mouth in the morning. [facility] dextroamphe tamine-amph etamine 20 mg tablet 2021-07 2 00:00: 00 08-11 00:00 :00 No [id number] 20mg Take 1 tablet by mouth in the morning. [facility] Lidocaine 5 % cream 2021-07 00:00: 00 06-25 00:00 :00 No [id number] Apply to area(s) 2 (two) times daily as needed for Pain (scale 4-6). Apply 5g to affected areas BID PRN [facility] bromphenira mine-pseudo ephedrine-D M (BROMFED DM) 2-30-10 mg/5 mL syrup 2021-07 00:00: 00 06-17 00:00 :00 No [id number] 5mL Take 5 mL by mouth 4 (four) times daily as needed for Congestion /Allergies or Cold symptoms. [facility] benzonatate (TESSALON PERLES) 100 mg capsule 2021-07 00:00: 00 06-17 00:00 :00 No [id number] 100mg Take 1 capsule by mouth every 8 (eight) hours as needed for Cough. [facility] amoxicillin -clavulanat e (AUGMENTIN) 875-125 mg per tablet 2021-07 00:00: 00 06-07 05:59 :00 No [id number] 1{tbl} Take 1 tablet by mouth in the morning and 1 tablet in the evening. Do all this for 10 days. [facility] dextroamphe tamine-amph etamine 20 mg tablet 2021-07 1-04 00:00: 00 06-17 00:00 :00 No [id number] 20mg Take 1 tablet by mouth in the morning. [facility] dextroamphe tamine-amph etamine 20 mg tablet 2021-07 0-03 00:00: 00 05-15 00:00 :00 No [id number] 20mg Take 1 tablet by mouth in the morning. [facility] dextroamphe tamine-amph etamine 20 mg tablet 02-28 00:00: 00 Yes [id number] 20mg Take 1 tablet by mouth in the morning. [facility] butalbital- aspirin-caf feine 50-325-40 mg per capsule 02-28 00:00: 00 03-24 00:00 :00 No [id number] 1{capsu le} Take 1 capsule by mouth every 6 (six) hours as needed (Migraine) . [facility] ergocalcife rol, vitamin d2, 1,250 mcg (50,000 unit) capsule 02-28 00:00: 00 08-11 00:00 :00 No [id number] Take 1 capsule by mouth weekly. [facility] dextroamphe tamine-amph etamine 20 mg tablet 01-23 00:00: 00 02-28 00:00 :00 No [id number] 20mg Take 1 tablet by mouth in the morning. [facility] cyclobenzap rine 10 mg tablet 12-07 00:00: 00 02-28 00:00 :00 No [id number] 10mg Take 1 tablet by mouth every 8 (eight) hours as needed for Muscle Spasms. [facility] methylPREDN ISolone (MEDROL, EDWIN,) 4 mg tablets 12-07 00:00: 00 02-28 00:00 :00 No [id number] Take by mouth SEE-INSTRU CTIONS. follow package directions [facility] lisinopriL- hydrochloro thiazide 10-12.5 mg per tablet 11-29 00:00: 00 06-17 00:00 :00 No [id number] .5{tbl} Take 0.5 tablets by mouth daily. [facility] Diclofenac Sodium (VOLTAREN) 1 % gel 11-29 00:00: 00 02-28 00:00 :00 No [id number] Apply to area(s) 4 (four) times daily. Apply 4 g qid [facility] calcium carbonate (CALCIUM 500) 500 mg calcium (1,250 mg) chewable tablet 10-23 00:00: 00 08-11 00:00 :00 No [id number] 1{tbl} Take 1 tablet by mouth daily. [facility] furosemide 20 mg tablet 10-23 00:00: 00 06-17 00:00 :00 No [id number] 20mg Take 1 tablet by mouth once daily as needed (qDay PRN Bilateral Low Extremity Edema). [facility] neomycin-po lymyxin-hyd rocortisone otic solution 10-23 00:00: 00 02-28 00:00 :00 No [id number] 3[drp] Place 3 Drops in both ears 4 (four) times daily. [facility] amoxicillin -clavulanat e (AUGMENTIN) 875-125 mg per tablet 10-14 00:00: 00 10-29 00:00 :00 No [id number] 1{tbl} Take 1 tablet by mouth 2 (two) times daily. [facility] aspirin-nelia taminophen- caffeine (EXCEDRIN MIGRAINE) 250-250-65 mg per tablet 10-08 13:51: 38 10-08 00:00 :00 No 1{tbl} Take 1 tablet by mouth as needed for Pain. [facility] Cholecalcif rosa, Vitamin D3, (VITAMIN D3) 125 mcg (5,000 unit) tablet 10-08 00:00: 00 02-28 00:00 :00 No [id number] 5000U Take 1 tablet by mouth daily. [facility] butalbital- aspirin-caf feine 50-325-40 mg per capsule 10-08 00:00: 00 02-28 00:00 :00 No [id number] 1{capsu le} Take 1 capsule by mouth every 6 (six) hours as needed (Migraine) . [facility] methocarbam oL (ROBAXIN-75 0) 750 mg tablet 09-18 00:00: 00 10-29 00:00 :00 No [id number] 750mg Take 1 tablet by mouth 2 (two) times daily as needed for Pain (scale 4-6). [facility] albuterol 90 mcg/actuati on inhaler 16 00:00: 00 04-03 00:00 :00 No [id number] 2{puff} Inhale 2 Puffs every 6 (six) hours as needed for Wheezing, Shortness of Breath or Bronchospa sm. [facility] benzonatate 100 mg capsule 08-19 00:00: 00 10-14 00:00 :00 No [id number] 200mg Take 2 capsules by mouth every 8 (eight) hours as needed for Cough. [facility] bromphenira mine-pseudo ephedrine-D M (BROMFED DM) 2-30-10 mg/5 mL syrup 08-19 00:00: 00 10-08 00:00 :00 No [id number] 5mL Take 5 mL by mouth 4 (four) times daily as needed for Congestion /Allergies . [facility] fluticasone propionate 50 mcg/actuati on nasal spray 08-19 00:00: 00 09-18 00:00 :00 No [id number] 1{spray } Use 1 [place] in each nostril daily. [facility] Immunizations Ordered Immunization Name Filled Immunization Name Date Status Comments Source TDAP 2024-03-22 00:00:00 Completed [facility] SARS-COV-2 COVID-19 MODERNA 12+ YRS VACCINE 2024-03-22 00:00:00 Completed [facility] SARS-COV-2 COVID-19 PFIZER VACCINE 2024-03-22 00:00:00 Completed [facility] Influenza Virus Vaccine Quad IM, Preserv and ABX Free 6 MO-64 YRS (FLUCELVAX) 2024-03-22 00:00:00 Completed [facility] SARS-COV-2 COVID-19 VACCINE 12 YRS+, BIVALENT 0.5ML, IM, (MODERNA-BLUE TOP) 2024-03-22 00:00:00 Completed [facility] TDAP 2023-05-07 08:00:00 Completed [facility] SARS-COV-2 COVID-19 MODERNA 12+ YRS VACCINE 2023-05-07 08:00:00 Completed [facility] SARS-COV-2 COVID-19 PFIZER VACCINE 2023-05-07 08:00:00 Completed [facility] Influenza Virus Vaccine Quad IM, Preserv and ABX Free 6 MO-64 YRS (FLUCELVAX) 2023-05-07 08:00:00 Completed [facility] SARS-COV-2 COVID-19 VACCINE 12 YRS+, BIVALENT 0.5ML, IM, (MODERNA-BLUE TOP) 2023-05-07 08:00:00 Completed [facility] TDAP 2023-05-05 08:00:00 Completed [facility] SARS-COV-2 COVID-19 MODERNA 12+ YRS VACCINE 2023-05-05 08:00:00 Completed [facility] SARS-COV-2 COVID-19 PFIZER VACCINE 2023-05-05 08:00:00 Completed [facility] Influenza Virus Vaccine Quad IM, Preserv and ABX Free 6 MO-64 YRS (FLUCELVAX) 2023-05-05 08:00:00 Completed [facility] SARS-COV-2 COVID-19 VACCINE 12 YRS+, BIVALENT 0.5ML, IM, (MODERNA-BLUE TOP) 2023-05-05 08:00:00 Completed [facility] TDAP 2023-04-30 08:45:00 Completed [facility] SARS-COV-2 COVID-19 MODERNA 12+ YRS VACCINE 2023-04-30 08:45:00 Completed [facility] SARS-COV-2 COVID-19 PFIZER VACCINE 2023-04-30 08:45:00 Completed [facility] Influenza Virus Vaccine Quad IM, Preserv and ABX Free 6 MO-64 YRS (FLUCELVAX) 2023-04-30 08:45:00 Completed [facility] SARS-COV-2 COVID-19 VACCINE 12 YRS+, BIVALENT 0.5ML, IM, (MODERNA-BLUE TOP) 2023-04-30 08:45:00 Completed [facility] TDAP 2023-04-24 08:00:00 Completed [facility] SARS-COV-2 COVID-19 MODERNA 12+ YRS VACCINE 2023-04-24 08:00:00 Completed [facility] SARS-COV-2 COVID-19 PFIZER VACCINE 2023-04-24 08:00:00 Completed [facility] Influenza Virus Vaccine Quad IM, Preserv and ABX Free 6 MO-64 YRS (FLUCELVAX) 2023-04-24 08:00:00 Completed [facility] SARS-COV-2 COVID-19 VACCINE 12 YRS+, BIVALENT 0.5ML, IM, (MODERNA-BLUE TOP) 2023-04-24 08:00:00 Completed [facility] TDAP 2023-04-23 00:00:00 Completed [facility] SARS-COV-2 COVID-19 MODERNA 12+ YRS VACCINE 2023-04-23 00:00:00 Completed [facility] SARS-COV-2 COVID-19 PFIZER VACCINE 2023-04-23 00:00:00 Completed [facility] Influenza Virus Vaccine Quad IM, Preserv and ABX Free 6 MO-64 YRS (FLUCELVAX) 2023-04-23 00:00:00 Completed [facility] SARS-COV-2 COVID-19 VACCINE 12 YRS+, BIVALENT 0.5ML, IM, (MODERNA-BLUE TOP) 2023-04-23 00:00:00 Completed [facility] TDAP 2023-04-22 08:00:00 Completed [facility] SARS-COV-2 COVID-19 MODERNA 12+ YRS VACCINE 2023-04-22 08:00:00 Completed [facility] SARS-COV-2 COVID-19 PFIZER VACCINE 2023-04-22 08:00:00 Completed [facility] Influenza Virus Vaccine Quad IM, Preserv and ABX Free 6 MO-64 YRS (FLUCELVAX) 2023-04-22 08:00:00 Completed [facility] SARS-COV-2 COVID-19 VACCINE 12 YRS+, BIVALENT 0.5ML, IM, (MODERNA-BLUE TOP) 2023-04-22 08:00:00 Completed [facility] TDAP 2023-04-20 12:00:00 Completed [facility] SARS-COV-2 COVID-19 MODERNA 12+ YRS VACCINE 2023-04-20 12:00:00 Completed [facility] SARS-COV-2 COVID-19 PFIZER VACCINE 2023-04-20 12:00:00 Completed [facility] Influenza Virus Vaccine Quad IM, Preserv and ABX Free 6 MO-64 YRS (FLUCELVAX) 2023-04-20 12:00:00 Completed [facility] SARS-COV-2 COVID-19 VACCINE 12 YRS+, BIVALENT 0.5ML, IM, (MODERNA-BLUE TOP) 2023-04-20 12:00:00 Completed [facility] TDAP 2023-04-16 08:00:00 Completed [facility] SARS-COV-2 COVID-19 MODERNA 12+ YRS VACCINE 2023-04-16 08:00:00 Completed [facility] SARS-COV-2 COVID-19 PFIZER VACCINE 2023-04-16 08:00:00 Completed [facility] Influenza Virus Vaccine Quad IM, Preserv and ABX Free 6 MO-64 YRS (FLUCELVAX) 2023-04-16 08:00:00 Completed [facility] SARS-COV-2 COVID-19 VACCINE 12 YRS+, BIVALENT 0.5ML, IM, (MODERNA-BLUE TOP) 2023-04-16 08:00:00 Completed [facility] TDAP 2023-04-14 08:15:00 Completed [facility] SARS-COV-2 COVID-19 MODERNA 12+ YRS VACCINE 2023-04-14 08:15:00 Completed [facility] SARS-COV-2 COVID-19 PFIZER VACCINE 2023-04-14 08:15:00 Completed [facility] Influenza Virus Vaccine Quad IM, Preserv and ABX Free 6 MO-64 YRS (FLUCELVAX) 2023-04-14 08:15:00 Completed [facility] SARS-COV-2 COVID-19 VACCINE 12 YRS+, BIVALENT 0.5ML, IM, (MODERNA-BLUE TOP) 2023-04-14 08:15:00 Completed [facility] TDAP 2023-04-09 09:30:00 Completed [facility] SARS-COV-2 COVID-19 MODERNA 12+ YRS VACCINE 2023-04-09 09:30:00 Completed [facility] SARS-COV-2 COVID-19 PFIZER VACCINE 2023-04-09 09:30:00 Completed [facility] Influenza Virus Vaccine Quad IM, Preserv and ABX Free 6 MO-64 YRS (FLUCELVAX) 2023-04-09 09:30:00 Completed [facility] SARS-COV-2 COVID-19 VACCINE 12 YRS+, BIVALENT 0.5ML, IM, (MODERNA-BLUE TOP) 2023-04-09 09:30:00 Completed [facility] TDAP 2023-04-09 00:00:00 Completed [facility] SARS-COV-2 COVID-19 MODERNA 12+ YRS VACCINE 2023-04-09 00:00:00 Completed [facility] SARS-COV-2 COVID-19 PFIZER VACCINE 2023-04-09 00:00:00 Completed [facility] Influenza Virus Vaccine Quad IM, Preserv and ABX Free 6 MO-64 YRS (FLUCELVAX) 2023-04-09 00:00:00 Completed [facility] SARS-COV-2 COVID-19 VACCINE 12 YRS+, BIVALENT 0.5ML, IM, (MODERNA-BLUE TOP) 2023-04-09 00:00:00 Completed [facility] TDAP 2023-04-08 00:00:00 Completed [facility] SARS-COV-2 COVID-19 MODERNA 12+ YRS VACCINE 2023-04-08 00:00:00 Completed [facility] SARS-COV-2 COVID-19 PFIZER VACCINE 2023-04-08 00:00:00 Completed [facility] Influenza Virus Vaccine Quad IM, Preserv and ABX Free 6 MO-64 YRS (FLUCELVAX) 2023-04-08 00:00:00 Completed [facility] SARS-COV-2 COVID-19 VACCINE 12 YRS+, BIVALENT 0.5ML, IM, (MODERNA-BLUE TOP) 2023-04-08 00:00:00 Completed [facility] TDAP 2023-04-07 00:00:00 Completed [facility] SARS-COV-2 COVID-19 MODERNA 12+ YRS VACCINE 2023-04-07 00:00:00 Completed [facility] SARS-COV-2 COVID-19 PFIZER VACCINE 2023-04-07 00:00:00 Completed [facility] Influenza Virus Vaccine Quad IM, Preserv and ABX Free 6 MO-64 YRS (FLUCELVAX) 2023-04-07 00:00:00 Completed [facility] SARS-COV-2 COVID-19 VACCINE 12 YRS+, BIVALENT 0.5ML, IM, (MODERNA-BLUE TOP) 2023-04-07 00:00:00 Completed [facility] TDAP 2023-04-03 14:30:00 Completed [facility] SARS-COV-2 COVID-19 MODERNA 12+ YRS VACCINE 2023-04-03 14:30:00 Completed [facility] SARS-COV-2 COVID-19 PFIZER VACCINE 2023-04-03 14:30:00 Completed [facility] Influenza Virus Vaccine Quad IM, Preserv and ABX Free 6 MO-64 YRS (FLUCELVAX) 2023-04-03 14:30:00 Completed [facility] SARS-COV-2 COVID-19 VACCINE 12 YRS+, BIVALENT 0.5ML, IM, (MODERNA-BLUE TOP) 2023-04-03 14:30:00 Completed [facility] TDAP 2023-04-02 00:00:00 Completed [facility] SARS-COV-2 COVID-19 MODERNA 12+ YRS VACCINE 2023-04-02 00:00:00 Completed [facility] SARS-COV-2 COVID-19 PFIZER VACCINE 2023-04-02 00:00:00 Completed [facility] Influenza Virus Vaccine Quad IM, Preserv and ABX Free 6 MO-64 YRS (FLUCELVAX) 2023-04-02 00:00:00 Completed [facility] SARS-COV-2 COVID-19 VACCINE 12 YRS+, BIVALENT 0.5ML, IM, (MODERNA-BLUE TOP) 2023-04-02 00:00:00 Completed [facility] TDAP 2023-03-31 00:00:00 Completed [facility] SARS-COV-2 COVID-19 MODERNA 12+ YRS VACCINE 2023-03-31 00:00:00 Completed [facility] SARS-COV-2 COVID-19 PFIZER VACCINE 2023-03-31 00:00:00 Completed [facility] Influenza Virus Vaccine Quad IM, Preserv and ABX Free 6 MO-64 YRS (FLUCELVAX) 2023-03-31 00:00:00 Completed [facility] SARS-COV-2 COVID-19 VACCINE 12 YRS+, BIVALENT 0.5ML, IM, (MODERNA-BLUE TOP) 2023-03-31 00:00:00 Completed [facility] SARS-COV-2 COVID-19 MODERNA 12+ YRS VACCINE 2023-03-24 16:15:00 Completed [facility] TDAP 2023-03-24 14:00:00 Completed [facility] SARS-COV-2 COVID-19 PFIZER VACCINE 2023-03-24 14:00:00 Completed [facility] Influenza Virus Vaccine Quad IM, Preserv and ABX Free 6 MO-64 YRS (FLUCELVAX) 2023-03-24 14:00:00 Completed [facility] SARS-COV-2 COVID-19 VACCINE 12 YRS+, BIVALENT 0.5ML, IM, (MODERNA-BLUE TOP) 2023-03-24 14:00:00 Completed [facility] SARS-COV-2 COVID-19 VACCINE 12 YRS+, BIVALENT 0.5ML, IM, (MODERNA-BLUE TOP) 2023-03-24 00:00:00 Completed [facility] SARS-COV-2 COVID-19 VACCINE 12 YRS+, BIVALENT 0.5ML, IM, (MODERNA-BLUE TOP) 2023-03-24 00:00:00 Completed [facility] SARS-COV-2 COVID-19 VACCINE 12 YRS+, BIVALENT 0.5ML, IM, (MODERNA-BLUE TOP) 2023-03-24 00:00:00 Completed [facility] SARS-COV-2 COVID-19 VACCINE 12 YRS+, BIVALENT 0.5ML, IM, (MODERNA-BLUE TOP) 2023-03-24 00:00:00 Completed [facility] SARS-COV-2 COVID-19 VACCINE 12 YRS+, BIVALENT 0.5ML, IM, (MODERNA-BLUE TOP) 2023-03-24 00:00:00 Completed [facility] TDAP 2023-03-24 00:00:00 Completed [facility] SARS-COV-2 COVID-19 MODERNA 12+ YRS VACCINE 2023-03-24 00:00:00 Completed [facility] SARS-COV-2 COVID-19 PFIZER VACCINE 2023-03-24 00:00:00 Completed [facility] Influenza Virus Vaccine Quad IM, Preserv and ABX Free 6 MO-64 YRS (FLUCELVAX) 2023-03-24 00:00:00 Completed [facility] SARS-COV-2 COVID-19 VACCINE 12 YRS+, BIVALENT 0.5ML, IM, (MODERNA-BLUE TOP) 2023-03-24 00:00:00 Completed [facility] TDAP 2023-02-23 00:00:00 Completed [facility] SARS-COV-2 COVID-19 MODERNA 12+ YRS VACCINE 2023-02-23 00:00:00 Completed [facility] SARS-COV-2 COVID-19 PFIZER VACCINE 2023-02-23 00:00:00 Completed [facility] Influenza Virus Vaccine Quad IM, Preserv and ABX Free 6 MO-64 YRS (FLUCELVAX) 2023-02-23 00:00:00 Completed [facility] Influenza Virus Vaccine Quad IM, Preserv and ABX Free 6 MO-64 YRS 2022-06-17 00:00:00 Completed [facility] Influenza Virus Vaccine Quad IM, Preserv and ABX Free 6 MO-64 YRS 2022-06-17 00:00:00 Completed [facility] Influenza Virus Vaccine Quad IM, Preserv and ABX Free 6 MO-64 YRS 2022-06-17 00:00:00 Completed [facility] Influenza Virus Vaccine Quad IM, Preserv and ABX Free 6 MO-64 YRS 2022-06-17 00:00:00 Completed [facility] Influenza Virus Vaccine Quad IM, Preserv and ABX Free 6 MO-64 YRS 2022-06-17 00:00:00 Completed [facility] Influenza Virus Vaccine Quad IM, Preserv and ABX Free 6 MO-64 YRS 2022-06-17 00:00:00 Completed [facility] Influenza Virus Vaccine Quad IM, Preserv and ABX Free 6 MO-64 YRS 2022-06-17 00:00:00 Completed [facility] Influenza Virus Vaccine Quad IM, Preserv and ABX Free 6 MO-64 YRS 2022-06-17 00:00:00 Completed [facility] Influenza Virus Vaccine Quad IM, Preserv and ABX Free 6 MO-64 YRS 2022-06-17 00:00:00 Completed [facility] Influenza Virus Vaccine Quad IM, Preserv and ABX Free 6 MO-64 YRS 2022-06-17 00:00:00 Completed [facility] Influenza Virus Vaccine Quad IM, Preserv and ABX Free 6 MO-64 YRS 2022-06-17 00:00:00 Completed [facility] Influenza Virus Vaccine Quad IM, Preserv and ABX Free 6 MO-64 YRS (FLUCELVAX) 2022-06-17 00:00:00 Completed [facility] Influenza Virus Vaccine Quad IM, Preserv and ABX Free 6 MO-64 YRS (FLUCELVAX) 2022-06-17 00:00:00 Completed [facility] Influenza Virus Vaccine Quad IM, Preserv and ABX Free 6 MO-64 YRS (FLUCELVAX) 2022-06-17 00:00:00 Completed [facility] Influenza Virus Vaccine Quad IM, Preserv and ABX Free 6 MO-64 YRS (FLUCELVAX) 2022-06-17 00:00:00 Completed [facility] Influenza Virus Vaccine Quad IM, Preserv and ABX Free 6 MO-64 YRS (FLUCELVAX) 2022-06-17 00:00:00 Completed [facility] Influenza Virus Vaccine Quad IM, Preserv and ABX Free 6 MO-64 YRS (FLUCELVAX) 2022-06-17 00:00:00 Completed [facility] Influenza Virus Vaccine Quad IM, Preserv and ABX Free 6 MO-64 YRS (FLUCELVAX) 2022-06-17 00:00:00 Completed [facility] TDAP 2021-12-17 00:00:00 Completed [facility] SARS-COV-2 COVID-19 MODERNA 12+ YRS VACCINE 2021-12-17 00:00:00 Completed [facility] SARS-COV-2 COVID-19 PFIZER VACCINE 2021-12-17 00:00:00 Completed [facility] TDAP 2021-12-09 00:00:00 Completed [facility] SARS-COV-2 COVID-19 MODERNA 12+ YRS VACCINE 2021-12-09 00:00:00 Completed [facility] SARS-COV-2 COVID-19 PFIZER VACCINE 2021-12-09 00:00:00 Completed [facility] TDAP 2021-10-19 00:00:00 Completed [facility] SARS-COV-2 COVID-19 MODERNA 12+ YRS VACCINE 2021-10-19 00:00:00 Completed [facility] SARS-COV-2 COVID-19 PFIZER VACCINE 2021-10-19 00:00:00 Completed [facility] TDAP 2021-08-22 00:00:00 Completed [facility] SARS-COV-2 COVID-19 MODERNA 12+ YRS VACCINE 2021-08-22 00:00:00 Completed [facility] SARS-COV-2 COVID-19 PFIZER VACCINE 2021-08-22 00:00:00 Completed [facility] SARS-COV-2 COVID-19 PFIZER VACCINE 2021-06-29 00:00:00 Completed [facility] SARS-COV-2 COVID-19 PFIZER VACCINE 2021-06-29 00:00:00 Completed [facility] SARS-COV-2 COVID-19 PFIZER VACCINE 2021-06-29 00:00:00 Completed [facility] SARS-COV-2 COVID-19 PFIZER VACCINE 2021-06-29 00:00:00 Completed [facility] SARS-COV-2 COVID-19 PFIZER VACCINE 2021-06-29 00:00:00 Completed [facility] SARS-COV-2 COVID-19 PFIZER VACCINE 2021-06-29 00:00:00 Completed [facility] SARS-COV-2 COVID-19 PFIZER VACCINE 2021-06-29 00:00:00 Completed [facility] SARS-COV-2 COVID-19 PFIZER VACCINE 2021-06-29 00:00:00 Completed [facility] SARS-COV-2 COVID-19 PFIZER VACCINE 2021-06-29 00:00:00 Completed [facility] SARS-COV-2 COVID-19 PFIZER VACCINE 2021-06-29 00:00:00 Completed [facility] SARS-COV-2 COVID-19 PFIZER VACCINE 2021-06-29 00:00:00 Completed [facility] SARS-COV-2 COVID-19 PFIZER VACCINE 2021-06-29 00:00:00 Completed [facility] SARS-COV-2 COVID-19 PFIZER VACCINE 2021-06-29 00:00:00 Completed [facility] SARS-COV-2 COVID-19 PFIZER VACCINE 2021-06-29 00:00:00 Completed [facility] SARS-COV-2 COVID-19 PFIZER VACCINE 2021-06-29 00:00:00 Completed [facility] SARS-COV-2 COVID-19 PFIZER VACCINE 2021-06-29 00:00:00 Completed [facility] SARS-COV-2 COVID-19 PFIZER VACCINE 2021-06-29 00:00:00 Completed [facility] SARS-COV-2 COVID-19 PFIZER VACCINE 2021-06-29 00:00:00 Completed [facility] SARS-COV-2 COVID-19 PFIZER VACCINE 2021-06-29 00:00:00 Completed [facility] SARS-COV-2 COVID-19 PFIZER VACCINE 2021-06-29 00:00:00 Completed [facility] SARS-COV-2 COVID-19 PFIZER VACCINE 2021-06-29 00:00:00 Completed [facility] SARS-COV-2 COVID-19 PFIZER VACCINE 2021-06-29 00:00:00 Completed [facility] SARS-COV-2 COVID-19 PFIZER VACCINE 2021-06-29 00:00:00 Completed [facility] SARS-COV-2 COVID-19 PFIZER VACCINE 2021-06-29 00:00:00 Completed [facility] SARS-COV-2 COVID-19 PFIZER VACCINE 2021-06-29 00:00:00 Completed [facility] SARS-COV-2 COVID-19 PFIZER VACCINE 2021-06-29 00:00:00 Completed [facility] SARS-COV-2 COVID-19 PFIZER VACCINE 2021-06-29 00:00:00 Completed [facility] TDAP 2020-10-13 00:00:00 Completed [facility] TDAP 2020-10-13 00:00:00 Completed [facility] TDAP 2020-10-13 00:00:00 Completed [facility] TDAP 2020-10-13 00:00:00 Completed [facility] TDAP 2020-10-13 00:00:00 Completed [facility] TDAP 2020-10-13 00:00:00 Completed [facility] TDAP 2020-10-13 00:00:00 Completed [facility] TDAP 2020-10-13 00:00:00 Completed [facility] TDAP 2020-10-13 00:00:00 Completed [facility] TDAP 2020-10-13 00:00:00 Completed [facility] TDAP 2020-10-13 00:00:00 Completed [facility] TDAP 2020-10-13 00:00:00 Completed [facility] TDAP 2020-10-13 00:00:00 Completed [facility] TDAP 2020-10-13 00:00:00 Completed [facility] TDAP 2020-10-13 00:00:00 Completed [facility] TDAP 2020-10-13 00:00:00 Completed [facility] TDAP 2020-10-13 00:00:00 Completed [facility] TDAP 2020-10-13 00:00:00 Completed [facility] TDAP 2020-10-13 00:00:00 Completed [facility] TDAP 2020-10-13 00:00:00 Completed [facility] TDAP 2020-10-13 00:00:00 Completed [facility] TDAP 2020-10-13 00:00:00 Completed [facility] TDAP 2020-10-13 00:00:00 Completed [facility] TDAP 2020-10-13 00:00:00 Completed [facility] TDAP 2020-10-13 00:00:00 Completed [facility] TDAP 2020-10-13 00:00:00 Completed [facility] TDAP 2020-10-13 00:00:00 Completed [facility] SARS-COV-2 COVID-19 MODERNA VACCINE 2020-08-14 00:00:00 Completed [facility] SARS-COV-2 COVID-19 MODERNA 12+ YRS VACCINE 2020-08-14 00:00:00 Completed [facility] SARS-COV-2 COVID-19 MODERNA 12+ YRS VACCINE 2020-08-14 00:00:00 Completed [facility] SARS-COV-2 COVID-19 MODERNA 12+ YRS VACCINE 2020-08-14 00:00:00 Completed [facility] SARS-COV-2 COVID-19 MODERNA 12+ YRS VACCINE 2020-08-14 00:00:00 Completed [facility] SARS-COV-2 COVID-19 MODERNA 12+ YRS VACCINE 2020-08-14 00:00:00 Completed [facility] SARS-COV-2 COVID-19 MODERNA 12+ YRS VACCINE 2020-08-14 00:00:00 Completed [facility] SARS-COV-2 COVID-19 MODERNA 12+ YRS VACCINE 2020-08-14 00:00:00 Completed [facility] SARS-COV-2 COVID-19 MODERNA 12+ YRS VACCINE 2020-08-14 00:00:00 Completed [facility] SARS-COV-2 COVID-19 MODERNA 12+ YRS VACCINE 2020-08-14 00:00:00 Completed [facility] SARS-COV-2 COVID-19 MODERNA 12+ YRS VACCINE 2020-08-14 00:00:00 Completed [facility] SARS-COV-2 COVID-19 MODERNA 12+ YRS VACCINE 2020-08-14 00:00:00 Completed [facility] SARS-COV-2 COVID-19 MODERNA 12+ YRS VACCINE 2020-08-14 00:00:00 Completed [facility] SARS-COV-2 COVID-19 MODERNA 12+ YRS VACCINE 2020-08-14 00:00:00 Completed [facility] SARS-COV-2 COVID-19 MODERNA 12+ YRS VACCINE 2020-08-14 00:00:00 Completed [facility] SARS-COV-2 COVID-19 MODERNA 12+ YRS VACCINE 2020-08-14 00:00:00 Completed [facility] SARS-COV-2 COVID-19 MODERNA 12+ YRS VACCINE 2020-08-14 00:00:00 Completed [facility] SARS-COV-2 COVID-19 MODERNA 12+ YRS VACCINE 2020-08-14 00:00:00 Completed [facility] SARS-COV-2 COVID-19 MODERNA 12+ YRS VACCINE 2020-08-14 00:00:00 Completed [facility] SARS-COV-2 COVID-19 MODERNA 12+ YRS VACCINE 2020-08-14 00:00:00 Completed [facility] SARS-COV-2 COVID-19 MODERNA 12+ YRS VACCINE 2020-08-14 00:00:00 Completed [facility] SARS-COV-2 COVID-19 MODERNA 12+ YRS VACCINE 2020-08-14 00:00:00 Completed [facility] SARS-COV-2 COVID-19 MODERNA 12+ YRS VACCINE 2020-08-14 00:00:00 Completed [facility] SARS-COV-2 COVID-19 MODERNA 12+ YRS VACCINE 2020-08-14 00:00:00 Completed [facility] SARS-COV-2 COVID-19 MODERNA 12+ YRS VACCINE 2020-08-14 00:00:00 Completed [facility] SARS-COV-2 COVID-19 MODERNA 12+ YRS VACCINE 2020-08-14 00:00:00 Completed SARS-COV-2 COVID-19 MODERNA VACCINE 2020-08-14 00:00:00 Completed [facility] SARS-COV-2 COVID-19 MODERNA VACCINE 2020-08-14 00:00:00 Completed [facility] SARS-COV-2 COVID-19 MODERNA 12+ YRS VACCINE 2020-07-17 00:00:00 Completed [facility] SARS-COV-2 COVID-19 MODERNA 12+ YRS VACCINE 2020-07-17 00:00:00 Completed [facility] SARS-COV-2 COVID-19 MODERNA 12+ YRS VACCINE 2020-07-17 00:00:00 Completed [facility] SARS-COV-2 COVID-19 MODERNA 12+ YRS VACCINE 2020-07-17 00:00:00 Completed [facility] SARS-COV-2 COVID-19 MODERNA 12+ YRS VACCINE 2020-07-17 00:00:00 Completed [facility] SARS-COV-2 COVID-19 MODERNA 12+ YRS VACCINE 2020-07-17 00:00:00 Completed [facility] SARS-COV-2 COVID-19 MODERNA 12+ YRS VACCINE 2020-07-17 00:00:00 Completed [facility] SARS-COV-2 COVID-19 MODERNA 12+ YRS VACCINE 2020-07-17 00:00:00 Completed [facility] SARS-COV-2 COVID-19 MODERNA 12+ YRS VACCINE 2020-07-17 00:00:00 Completed [facility] SARS-COV-2 COVID-19 MODERNA 12+ YRS VACCINE 2020-07-17 00:00:00 Completed [facility] SARS-COV-2 COVID-19 MODERNA 12+ YRS VACCINE 2020-07-17 00:00:00 Completed [facility] SARS-COV-2 COVID-19 MODERNA 12+ YRS VACCINE 2020-07-17 00:00:00 Completed [facility] SARS-COV-2 COVID-19 MODERNA 12+ YRS VACCINE 2020-07-17 00:00:00 Completed [facility] SARS-COV-2 COVID-19 MODERNA 12+ YRS VACCINE 2020-07-17 00:00:00 Completed [facility] SARS-COV-2 COVID-19 MODERNA 12+ YRS VACCINE 2020-07-17 00:00:00 Completed [facility] SARS-COV-2 COVID-19 MODERNA 12+ YRS VACCINE 2020-07-17 00:00:00 Completed [facility] SARS-COV-2 COVID-19 MODERNA 12+ YRS VACCINE 2020-07-17 00:00:00 Completed [facility] SARS-COV-2 COVID-19 MODERNA 12+ YRS VACCINE 2020-07-17 00:00:00 Completed [facility] SARS-COV-2 COVID-19 MODERNA 12+ YRS VACCINE 2020-07-17 00:00:00 Completed [facility] SARS-COV-2 COVID-19 MODERNA 12+ YRS VACCINE 2020-07-17 00:00:00 Completed [facility] SARS-COV-2 COVID-19 MODERNA 12+ YRS VACCINE 2020-07-17 00:00:00 Completed [facility] SARS-COV-2 COVID-19 MODERNA 12+ YRS VACCINE 2020-07-17 00:00:00 Completed [facility] SARS-COV-2 COVID-19 MODERNA 12+ YRS VACCINE 2020-07-17 00:00:00 Completed [facility] SARS-COV-2 COVID-19 MODERNA VACCINE 2020-07-17 00:00:00 Completed [facility] SARS-COV-2 COVID-19 MODERNA VACCINE 2020-07-17 00:00:00 Completed [facility] SARS-COV-2 COVID-19 MODERNA VACCINE 2020-07-17 00:00:00 Completed [facility] Vital Signs Vital Name Observation Time Observation Value Comments S ource Systolic blood pressure 2025-03-31 22:28:00 111 mm[Hg] [facility] Diastolic blood pressure 2025-03-31 22:28:00 78 mm[Hg] [facility] Heart rate 2025-03-31 22:28:00 71 /min [facility] 2025-03-31 22:28:00 36.89 Kelly [facility] Respiratory rate 2025-03-31 22:28:00 16 /min [facility] Body height 2025-03-31 22:28:00 167.6 cm [facility] Body weight 2025-03-31 22:28:00 138.665 kg [facility] BMI 2025-03-31 22:28:00 49.34 kg/m2 [facility] Oxygen saturation in Arterial blood by Pulse oximetry 2025-03-31 22:28:00 99 /min [facility] Systolic blood pressure 2025-02-03 16:04:00 145 mm[Hg] [facility] Diastolic blood pressure 2025-02-03 16:04:00 65 mm[Hg] [facility] Body height 2025-02-03 16:04:00 167.6 cm [facility] Body weight 2025-02-03 16:04:00 147.419 kg [facility] BMI 2025-02-03 16:04:00 52.46 kg/m2 [facility] saturation in Arterial blood by Pulse oximetry 2025-02-03 16:04:00 98 /min [facility] Systolic blood pressure 2024-12-20 20:16:00 157 mm[Hg] [facility] Diastolic blood pressure 2024-12-20 20:16:00 87 mm[Hg] [facility] Heart rate 2024-12-20 20:14:00 76 /min [facility] Body temperature 2024-12-20 20:14:00 36 Kelly [facility] Body height 2024-12-20 20:14:00 167.6 cm [facility] Body weight 2024-12-20 20:14:00 150.095 kg [facility] BMI 2024-12-20 20:14:00 53.41 kg/m2 [facility] Oxygen saturation in Arterial blood by Pulse oximetry 2024-12-20 20:14:00 98 /min [facility] Systolic blood pressure 2024-06-30 15:54:00 152 mm[Hg] [facility] Diastolic blood pressure 2024-06-30 15:54:00 74 mm[Hg] [facility] Heart rate 2024-06-30 15:53:00 69 /min [facility] Body temperature 2024-06-30 15:53:00 36.33 Kelly [facility] Respiratory rate 2024-06-30 15:53:00 20 /min [facility] Body height 2024-06-30 15:53:00 167.6 cm [facility] 2024-06-30 15:53:00 148.78 kg [facility] BMI 2024-06-30 15:53:00 52.94 kg/m2 [facility] Oxygen saturation in Arterial blood by Pulse oximetry 2024-06-30 15:53:00 100 /min [facility] Systolic blood pressure 2024-02-24 16:25:00 137 mm[Hg] [facility] Diastolic blood pressure 2024-02-24 16:25:00 77 mm[Hg] [facility] Heart rate 2024-02-24 16:25:00 83 /min [facility] Body temperature 2024-02-24 16:25:00 36.17 Kelly [facility] Respiratory rate 2024-02-24 16:25:00 20 /min [facility] Body height 2024-02-24 16:25:00 167.6 cm [facility] Body weight 2024-02-24 16:25:00 147.691 kg [facility] BMI 2024-02-24 16:25:00 52.55 kg/m2 [facility] Oxygen saturation in Arterial blood by Pulse oximetry 2024-02-24 16:25:00 98 /min [facility] Systolic blood pressure 2024-01-08 01:38:00 143 mm[Hg] [facility] Diastolic blood pressure 2024-01-08 01:38:00 83 mm[Hg] [facility] Heart rate 2024-01-08 01:38:00 102 /min [facility] Body temperature 2024-01-08 01:38:00 36.83 Kelly [facility] Respiratory rate 2024-01-08 01:38:00 19 /min [facility] Body weight 2024-01-08 01:38:00 145.378 kg [facility] BMI 2024-01-08 01:38:00 51.73 kg/m2 [facility] Oxygen saturation in Arterial blood by Pulse oximetry 2024-01-08 01:38:00 98 /min [facility] Systolic blood pressure 2023-12-22 17:28:00 142 mm[Hg] [facility] Diastolic blood pressure 2023-12-22 17:28:00 72 mm[Hg] [facility] Heart rate 2023-12-22 17:26:00 81 /min [facility] Body temperature 2023-12-22 17:26:00 36.61 Kelly [facility] Respiratory rate 2023-12-22 17:26:00 16 /min [facility] Body weight 2023-12-22 17:26:00 151.048 kg Univ [facility] BMI 2023-12-22 17:26:00 53.75 kg/m2 [facility] Oxygen saturation in Arterial blood by Pulse oximetry 2023-12-22 17:26:00 98 /min [facility] Systolic blood pressure 2023-04-20 17:12:00 125 mm[Hg] [facility] Diastolic blood pressure 2023-04-20 17:12:00 85 mm[Hg] [facility] Heart rate 2023-04-20 17:12:00 86 /min [facility] Body temperature 2023-04-20 17:12:00 35.78 Kelly [facility] Body height 2023-04-20 17:12:00 167.6 cm [facility] Body weight 2023-04-20 17:12:00 147.283 kg [facility] BMI 2023-04-20 17:12:00 52.41 kg/m2 [facility] Oxygen saturation in Arterial blood by Pulse oximetry 2023-04-20 17:12:00 99 /min [facility] Systolic blood pressure 2023-04-03 20:04:00 123 mm[Hg] [facility] Diastolic blood pressure 2023-04-03 20:04:00 74 mm[Hg] [facility] Heart rate 2023-04-03 20:04:00 109 /min [facility] Body temperature 2023-04-03 20:04:00 36.67 Kelly [facility] Respiratory rate 2023-04-03 20:04:00 18 /min [facility] Body height 2023-04-03 20:04:00 167.6 cm [facility] Body weight 2023-04-03 20:04:00 146.285 kg [facility] 2023-04-03 20:04:00 52.05 kg/m2 [facility] Systolic blood pressure 2023-03-24 19:11:00 136 mm[Hg] [facility] Diastolic blood pressure 2023-03-24 19:11:00 79 mm[Hg] [facility] Systolic blood pressure 2023-03-24 19:11:00 136 mm[Hg] [facility] Diastolic blood pressure 2023-03-24 19:11:00 79 mm[Hg] [facility] Heart rate 2023-03-24 19:07:00 89 /min [facility] Body temperature 2023-03-24 19:07:00 36.5 Kelly [facility] Respiratory rate 2023-03-24 19:07:00 18 /min [facility] Body height 2023-03-24 19:07:00 167.6 cm [facility] Body weight 2023-03-24 19:07:00 149.551 kg [facility] BMI 2023-03-24 19:07:00 53.21 kg/m2 [facility] Oxygen saturation in Arterial blood by Pulse oximetry 2023-03-24 19:07:00 98 /min [facility] Heart rate 2023-03-24 19:07:00 89 /min [facility] Body temperature 2023-03-24 19:07:00 36.5 Kelly [facility] Respiratory rate 2023-03-24 19:07:00 18 /min [facility] Body height 2023-03-24 19:07:00 167.6 cm [facility] 2023-03-24 19:07:00 149.551 kg [facility] BMI 2023-03-24 19:07:00 53.21 kg/m2 [facility] Oxygen saturation in Arterial blood by Pulse oximetry 2023-03-24 19:07:00 98 /min [facility] Systolic blood pressure 2023-02-20 17:36:00 134 mm[Hg] [facility] Diastolic blood pressure 2023-02-20 17:36:00 77 mm[Hg] [facility] Heart rate 2023-02-20 17:32:00 77 /min [facility] Body temperature 2023-02-20 17:32:00 36.11 Kelly [facility] Respiratory rate 2023-02-20 17:32:00 20 /min [facility] Body height 2023-02-20 17:32:00 167.6 cm [facility] 2023-02-20 17:32:00 147.963 kg Univ [facility] BMI 2023-02-20 17:32:00 52.65 kg/m2 [facility] Oxygen saturation in Arterial blood by Pulse oximetry 2023-02-20 17:32:00 99 /min [facility] Systolic blood pressure 2022-11-05 19:10:00 141 mm[Hg] [facility] Diastolic blood pressure 2022-11-05 19:10:00 80 mm[Hg] [facility] Heart rate 2022-11-05 19:07:00 86 /min [facility] Body temperature 2022-11-05 19:07:00 36.67 Kelly [facility] Respiratory rate 2022-11-05 19:07:00 16 /min [facility] Body height 2022-11-05 19:07:00 167.6 cm [facility] weight 2022-11-05 19:07:00 146.654 kg Univ [facility] BMI 2022-11-05 19:07:00 52.18 kg/m2 [facility] Oxygen saturation in Arterial blood by Pulse oximetry 2022-11-05 19:07:00 97 /min [facility] Body weight 2022-06-17 19:42:00 143.427 kg Univ [facility] BMI 2022-06-17 19:42:00 51.04 kg/m2 [facility] Oxygen saturation in Arterial blood by Pulse oximetry 2022-06-17 19:42:00 98 /min [facility] Systolic blood pressure 2022-06-17 19:42:00 124 mm[Hg] [facility] Diastolic blood pressure 2022-06-17 19:42:00 56 mm[Hg] [facility] Heart rate 2022-06-17 19:42:00 83 /min [facility] Body temperature 2022-06-17 19:42:00 36.5 Kelly [facility] Respiratory rate 2022-06-17 19:42:00 18 /min [facility] Body height 2022-06-17 19:42:00 167.6 cm [facility] Systolic blood pressure 2022-05-27 17:16:00 116 mm[Hg] [facility] Diastolic blood pressure 2022-05-27 17:16:00 74 mm[Hg] [facility] Heart rate 2022-05-27 17:16:00 78 /min [facility] Body temperature 2022-05-27 17:16:00 36.44 Kelly [facility] Respiratory rate 2022-05-27 17:16:00 18 /min [facility] Body height 2022-05-27 17:16:00 167.6 cm [facility] Body weight 2022-05-27 17:16:00 141.522 kg [facility] BMI 2022-05-27 17:16:00 50.36 kg/m2 [facility] Oxygen saturation in Arterial blood by Pulse oximetry 2022-05-27 17:16:00 98 /min [facility] Systolic blood pressure 2022-03-13 00:46:00 128 mm[Hg] [facility] Diastolic blood pressure 2022-03-13 00:46:00 84 mm[Hg] [facility] Heart rate 2022-03-13 00:46:00 94 [facility] 2022-03-13 00:46:00 37.28 Kelly [facility] Respiratory rate 2022-03-13 00:46:00 18 /min [facility] Body height 2022-03-13 00:46:00 167.6 cm [facility] Body weight 2022-03-13 00:46:00 143.881 kg [facility] BMI 2022-03-13 00:46:00 51.20 kg/m2 [facility] Oxygen saturation in Arterial blood by Pulse oximetry 2022-03-13 00:46:00 99 /min [facility] Systolic blood pressure 2022-02-28 21:18:00 121 mm[Hg] [facility] Diastolic blood pressure 2022-02-28 21:18:00 71 mm[Hg] [facility] Heart rate 2022-02-28 21:18:00 83 /min [facility] Body height 2022-02-28 21:18:00 167.6 cm [facility] Body weight 2022-02-28 21:18:00 143.7 kg [facility] BMI 2022-02-28 21:18:00 51.13 kg/m2 [facility] Oxygen saturation in Arterial blood by Pulse oximetry 2022-02-28 21:18:00 98 /min [facility] Procedures Procedure Date / Time Performed Performing Clinician Source MR THORACIC SPINE WO CONTRAST 2025-02-01 23:38:42 Roxanne Hood [facility] POCT MOLECULAR FLU 2024-06-30 16:01:00 Unknown, Attend ing [facility] POCT MOLECULAR STREP 2024-06-30 15:58:00 Unknown, Atte cyrus [facility] COMP. METABOLIC PANEL (15178) 2024-03-11 14:09:00 Rebecca Pang [facility] LIPID PANEL (56825)(TOTAL CHOLESTEROL, TRIGLYCERIDES, HDL) 2024-03-11 14:09:00 Rebecca Pang [facility] IRON PANEL 2024-03-11 14:09:00 Rebecca Pang [facility] CBC WITH DIFF 2024-03-11 14:09:00 Rebecca Pang [facility] GLYCOSYLATED HEMOGLOBIN (A1C) 2024-03-11 14:09:00 Rebecca Pang [facility] MEDICAL RELEASE/CLEARANCE FORMS 2023-03-31 05:01:00 Doctor Unassigned, [place] [facility] XR SPINE THORACIC 3 VW 2023-03-24 22:15:21 Liliane Brothers [facility] FREE T4 2023-03-24 21:16:00 Ann-Marie [facility] THYROID STIMULATING HORMONE 2023-03-24 21:16:00 Liliane Brothers [facility] COMP. METABOLIC PANEL (38753) 2023-03-24 21:16:00 Liliane Brothers [facility] CBC WITH DIFF 2023-03-24 21:16:00 Liliane Brothers [facility] GLYCOSYLATED HEMOGLOBIN (A1C) 2023-03-24 21:16:00 Liliane Brothers [facility] URINE CULTURE 2023-03-24 21:16:00 Liliane Brothers [facility] VITAMIN D, 25-OH 2023-03-24 21:16:00 Liliane Brothers [facility] FREE T3 2023-03-24 21:16:00 Liliane Brothers [facility] SARS-COV-2 COVID-19 VACCINE 12 YRS+, BIVALENT 0.5ML, IM (MODERNA) 2023-03-24 20:00:40 Liliane Brothers [facility] SARS-COV-2 COVID-19 VACCINE 12 YRS+, BIVALENT 0.5ML, IM (MODERNA) 2023-03-24 20:00:40 Liliane Brothers [facility] CT ABDOMEN PELVIS WO CONTRAST 2023-03-24 18:59:38 Roxanne Hood [facility] POCT URINALYSIS 2023-02-20 18:13:00 Roxanne Hood [facility] INSURANCE CORRESPONDENCE 2023-02-20 05:01:00 Doc tor Unassigned, [place] [facility] CONSENT/REFUSAL FOR DIAGNOSIS AND TREATMENT 2022-11-05 19:03:01 Doctor Unassigned, [place] [facility] FLU VACC (), 6 MO-64 YRS, .5ML, IM, QUAD (FLUCELVAX) 2022-06-17 20:23:07 Liliane Brothers [facility] XR FOOT 3+ VW RIGHT 2022-03-13 01:01:01 Cruz Pereyra [facility] - [facility] 2017-05-18 06:01:00 Doctor Marcela ssigned, [place] [facility] SURGERY [facility] 2017-05-11 05:01:00 Doctor Marcela ssigned, [place] [facility] SURGERY [facility] 2017-05-04 05:01:00 Doctor Marcela ssigned, [place] [facility] Encounters Start Date/Time End Date/Time Encounter Type Admission Type Attending Clinicians Care Facility Care Department Encounter ID Source 2025-03-31 17:20:00 2025-03-31 18:15:30 Urgent Care R CRUZ PEREYRA [facility] 1..840.114 350.1.13.10 4.2.7.2.686 [id number] [facility] 2025-03-09 00:00:00 2025-03-17 13:02:24 Refill Liliane Brothers [facility] 1.2.840.114 350.1.13.10 4.2.7.2.686 [id number] [facility] 2025-02-07 00:00:00 2025-03-11 18:21:28 Patient Secure Msg Doctor Unassigned, [place] Doctor Unassigned, [place] [facility] 1.2840.114 350.1.13.10 4.2.7.2.686 [id number] [facility] 2025-03-09 00:00:00 2025-03-09 13:38:58 Refill Roxanne Hood [facility] 1..840.114 350.1.13.10 4.2.7.2.686 [id number] [facility] 2025-01-30 00:00:00 2025-03-04 18:30:37 Patient Secure Msg Doctor Unassigned, [place] Doctor Unassigned, [place] [facility] 1.2.840.114 350.1.13.10 4.2.7.2.686 [id number] [facility] 2025-01-30 00:00:00 2025-03-04 18:29:57 Patient Secure Msg Doctor Unassigned, [place] Doctor [place] [facility] 1.2.840.114 350.1.13.10 4.2.7.2.686 [id number] [facility] 2025-01-19 00:00:00 2025-02-25 18:38:13 Patient Secure Msg Roxanne Hood [facility] 1.2.840.114 350.1.13.10 4.2.7.2.686 [id number] [facility] 2025-02-08 00:00:00 2025-02-08 17:39:17 Refill Roxanne Hood [facility] 1.2.840.114 350.1.13.10 4.2.7.2.686 [id number] [facility] 2025-02-07 00:00:00 2025-02-07 13:39:11 Specialty Pharmacy Veronica Pat Shatara [facility] 1.2.840.114 350.1.13.10 4.2.7.2.686 [id number] [facility] 2025-02-03 14:45:00 2025-02-03 13:46:13 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 ROXANNE HOOD OGECHUKWU [facility] 1.2.840.114 350.1.13.10 4.2.7.2.686 [id number] [facility] 2025-02-03 10:30:00 2025-02-03 11:50:22 [facility] 1.2.840.114 350.1.13.10 4.2.7.2.686 [id number] [facility] 2025-02-01 17:50:37 2025-02-01 23:59:00 Hospital Encounter ROXANNE HARO [facility]BRIANDA [facility] 1..840.114 350.1.13.10 4.2.7.2.686 [id number] [facility] 2025-01-30 00:00:00 2025-01-30 15:32:35 Telephone Liliane Brothers [facility] 1.2.840.114 350.1.13.10 4.2.7.2.686 [id number] [facility] 2025-01-30 00:00:00 2025-01-30 09:16:23 Telephone Mei Coley Brooke [facility] 1.2.840.114 350.1.13.10 4.2.7.2.686 [id number] [facility] 2025-01-25 00:00:00 2025-01-25 00:00:00 Outpatient ROXANNE HARO OGECHUKWU [facility] [id number] [facility] 2024-12-20 15:00:00 2024-12-20 16:13:06 Office Visit Roxanne Haro [facility] 1.2.840.114 350.1.13.10 4.2.7.2.686 [id number] [facility] 2024-12-10 00:00:00 2024-12-13 15:59:51 Refyaneth Roxanne Hood [facility] 1.2.840.114 350.1.13.10 4.2.7.2.686 [id number] [facility] 2017-05-04 00:00:00 2024-08-27 03:35:27 Orders Only Doctor Unassigned, [place], [place] [facility] 1.2.840.114 350.1.13.10 4.2.7.2.686 [id number] [facility] 2017-05-11 00:00:00 2024-08-27 03:34:52 Orders Only Doctor Unassigned, [place] Doctor Unassigned, [place] [facility] 1.2.840.114 350.1.13.10 4.2.7.2.686 [id number] [facility] 2017-05-18 00:00:00 2024-08-27 03:34:13 Orders Only Doctor Unassigned, [place] Doctor Unassigned, [place] [facility] 1.2.840.114 350.1.13.10 4.2.7.2.686 [id number] [facility] 2024-06-30 10:00:00 2024-06-30 10:20:00 Urgent Care Devante Feliciano Unknown, Attending [facility] 1.2840.114 350.1.13.10 4.2.7.2.686 [id number] [facility] 2024-06-30 10:00:00 2024-06-30 10:00:00 Outpatient R FELICIANOROSALIE ACEVESJOE [facility] [id number] [facility] 2024-05-01 00:00:00 2024-05-02 11:52:06 Roxanne Solomon [facility] 1.2.840.114 350.1.13.10 4.2.7.2.686 [id number] [facility] 2024-03-22 00:00:00 2024-03-22 14:14:15 Telephone EricmaggieLiliane webb [facility] 1.2.840.114 350.1.13.10 4.2.7.2.686 [id number] [facility] 2024-03-22 08:00:00 2024-03-22 09:43:46 Ancillary Visit R SHAISTA VAUGHN [facility] 1.2.840.114 350.1.13.10 4.2.7.2.686 [id number] [facility] 2024-03-22 08:00:00 2024-03-22 08:00:00 Outpatient R SHAISTA VAUGHN [facility] [id number] [facility] 2024-03-16 08:00:00 2024-03-16 10:25:31 Ancillary Visit R SHAISTA VAUGHN [facility]IST[facility] 1.2.840.114 350.1.13.10 4.2.7.2.686 [id number] [facility] 2024-03-11 09:00:00 2024-03-11 09:09:47 Outpatient R ROXANNE HOOD OGECHUKWU [facility] [id number] [facility] 2024-03-11 09:00:00 2024-03-11 09:09:47 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, 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 Roxanne Hood 2, [facility] 1.2.840.114 350.1.13.10 4.2.7.2.686 [id number] [facility] 2024-03-11 08:00:00 2024-03-11 08:53:52 Outpatient R SHAISTA VAUGHN [facility] [id number] [facility] 2024-03-11 08:00:00 2024-03-11 08:53:52 Ancillary Visit Richard Joshi Craig L Ifurung, Aljude Leandre N [facility] 1.2.840.114 350.1.13.10 4.2.7.2.686 [id number] [facility] 2024-02-24 11:00:00 2024-02-24 12:22:46 Outpatient R ROXANNE HOOD OGDONOVANBRIANDA [facility] [id number] [facility] 2024-02-24 11:00:00 2024-02-24 12:22:46 Office Visit Erwin Roxanne [facility] 1.2.840.114 350.1.13.10 4.2.7.2.686 [id number] [facility] 2024-02-12 11:00:00 2024-02-12 11:00:00 Outpatient R ANANTH HOODCJANANTH LUIDONOVANBRIANDA [facility] [id number] [facility] 2024-01-25 09:00:00 2024-01-25 09:00:00 Outpatient R RAMILA DUNCAN [facility] [id number] [facility] 2024-01-07 20:20:00 2024-01-07 20:40:00 Urgent Care Primitivo Bryan Unknown, Attending [facility] 1..840.114 350.1.13.10 4.2.7.2.686 [id number] [facility] 2024-01-07 20:20:00 2024-01-07 20:20:00 Outpatient R VERONABARTPRIMITIVO Flores [facility] [id number] [facility] 2023-12-22 12:00:00 2023-12-22 13:07:38 Outpatient R [facility]OXANNE HOOD [facility] [id number] [facility] 2023-12-22 12:00:00 2023-12-22 13:07:38 Office Visit Roxanne Hood [facility] 1..840.114 350.1.13.10 4.2.7.2.686 [id number] [facility] 2023-05-07 08:00:00 2023-05-07 08:51:35 Outpatient R SHAISTA VAUGHN [facility] [id number] [facility] 2023-05-07 08:00:00 2023-05-07 08:51:35 Ancillary Visit Lisa Chapin Craig L [facility] 1..840.114 350.1.13.10 4.2.7.2.686 [id number] [facility] 2023-05-05 08:00:00 2023-05-05 08:45:00 Ancillary Visit Zeus Chapin Craig L [facility] 1.2.840.114 350.1.13.10 4.2.7.2.686 [id number] 179 [id number] [facility] 2023-04-30 08:45:00 2023-04-30 09:41:22 Ancillary Visit Lisa Chapin Craig L [facility] 1.2.840.114 350.1.13.10 4.2.7.2.686 [id number] 179 [id number] [facility] 2023-04-24 08:00:00 2023-04-24 09:04:35 Ancillary Visit Brianda Arias Craig L [facility] 1.2.840.114 350.1.13.10 4.2.7.2.686 [id number] [facility] 2023-04-23 00:00:00 2023-04-23 00:00:00 Patient Secure Liliane Major [facility] 1.2.840.114 350.1.13.10 4.2.7.2.686 [id number] [id number] [facility] 2023-04-22 08:00:00 2023-04-22 08:55:25 Ancillary Visit Lisa Chapin Craig L [facility] 1.2.840.114 350.1.13.10 4.2.7.2.686 [id number] [facility] 2023-04-20 12:00:00 2023-04-20 12:52:48 Outpatient R ROXANNE OHOD O[facility]UKWU [facility] [id number] [facility] 2023-04-20 12:00:00 2023-04-20 12:52:48 Office Visit Roxanne Hood [facility] 1.2.840.114 350.1.13.10 4.2.7.2.686 [id number] 044 [id number] [facility] 2023-04-16 08:00:00 2023-04-16 08:59:22 Ancillary Visit Lisa Chapin Craig L [facility] 1.840.114 350.1.13.10 4.2.7.2.686 [id number] 179 [id number] [facility] 2023-04-14 08:15:00 2023-04-14 09:07:06 Ancillary Visit Krystyna Lopez Craig L [facility] 1.840.114 350.1.13.10 4.2.7.2.686 [id number] [facility] 2023-04-09 09:30:00 2023-04-09 10:57:52 Outpatient R SHAISTA VAUGHN CRAIG [facility] [id number] [facility] 2023-04-09 09:30:00 2023-04-09 10:57:52 Ancillary Visit Stacy Mccloud Craig L [facility] 1.840.114 350.1.13.10 4.2.7.2.686 [id number] [facility] 2023-04-09 00:00:00 2023-04-09 00:00:00 Patient Secure Msg Doctor Unassigned, [place] [facility]TASHATammy [facility] MED[facility] OFF[facility] 1.840.114 350.1.13.10 4.2.7.2.686 [id number] [facility] 2023-04-08 00:00:00 2023-04-08 00:00:00 Patient Secure Msg Doctor Unassigned, [place] [facility] 1.84.114 350.1.13.10 4.2.7.2.686 [id number] [facility] 2023-04-07 00:00:00 2023-04-07 00:00:00 Telephone Rebecca Pang [facility] 1.84.114 350.1.13.10 4.2.7.2.686 [id number] [id number] [facility] 2023-04-03 14:30:00 2023-04-03 15:27:24 Outpatient R REBECCA PANG [facility] [id number] [facility] 2023-04-03 14:30:00 2023-04-03 15:27:24 Office Visit Rebecca Pang [facility] 1.2840.114 350.1.13.10 4.2.7.2.686 [id number] [id number] [facility] 2023-04-03 14:30:00 2023-04-03 14:30:00 Outpatient R REBECCA PANG [facility] [id number] [facility] 2023-04-02 00:00:00 2023-04-02 00:00:00 Patient Secure Msg Doctor Unassigned, [place] [facility] 1.84.114 350.1.13.10 4.2.7.2.686 [id number] [facility] 2023-03-31 00:00:00 2023-03-31 00:00:00 Orders Only Doctor Unassigned, [place] [facility] 1.2.114 350.1.13.10 4.2.7.2.686 [id number] [facility] 2023-03-26 00:00:00 2023-03-26 00:00:00 Telephone Liliane Brothers [facility] 1.284.114 350.1.13.10 4.2.7.2.686 [id number] 044 [id number] [facility] 2023-03-25 00:00:00 2023-03-25 00:00:00 Telephone Liliane Brothers [facility] 1.284.114 350.1.13.10 4.2.7.2.686 [id number] 044 [id number] [facility] 2023-03-24 15:45:00 2023-03-24 23:59:00 Hospital Encounter Liliane Brothers [facility] 1.2.840.114 350.1.13.10 4.2.7.2.686 [id number] [facility] 2023-03-24 16:15:00 2023-03-24 16:24:31 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, 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 Ann-Marie [facility] PROFESSIO NAL BUILDING 1.2.840.114 350.1.13.10 4.2.7.2.686 [id number] [facility] 2023-03-24 13:00:00 2023-03-24 15:44:00 Hospital Encounter Roxanne Hood [facility] 1.2.840.114 350.1.13.10 4.2.7.2.686 [id number] [facility] 2023-03-24 14:00:00 2023-03-24 15:04:30 Outpatient R LILIANE BROTHERS [facility] [id number] [facility] 2023-03-24 14:00:00 2023-03-24 15:04:30 Office Visit Ann-Marie [facility] PROFESS[facility] NAL BUILDING 1.2.840.114 350.1.13.10 4.2.7.2.686 [id number] 044 [id number] [facility] 2023-03-24 00:00:00 2023-03-24 00:00:00 Patient Secure Msg Doctor Unassigned, [place] [facility] 1.2.840.114 350.1.13.10 4.2.7.2.686 [id number] [id number] [facility] 2023-03-03 00:00:00 2023-03-03 00:00:00 Telephone Liliane Brothers [facility] 1.2.840.114 350.1.13.10 4.2.7.2.686 [id number] 044 [id number] [facility] 2023-02-25 00:00:00 2023-02-25 00:00:00 Outpatient R ROLDAN HOODFreddyCorwin KWANERWIN, ROXANNE [facility] [id number] [facility] 2023-02-23 00:00:00 2023-02-23 00:00:00 Patient Secure Msg Doctor Unassigned, [place] [facility] 1.2840.114 350.1.13.10 4.2.7.2.686 [id number] [facility] 2023-02-20 12:00:00 2023-02-20 13:41:39 Outpatient R ROLDAN HOODFreddyCorwin HOOD ROXANNE [facility] [id number] [facility] 2023-02-20 12:00:00 2023-02-20 13:41:39 Office Visit Roxanne Hood [facility] 1.2.840.114 350.1.13.10 4.2.7.2.686 [id number] 044 [id number] [facility] 2023-02-20 00:00:00 2023-02-20 00:00:00 Orders Only Doctor Unassigned, [place] [facility] 1.2840.114 350.1.13.10 4.2.7.2.686 [id number] [facility] 2023-01-15 00:00:00 2023-01-15 00:00:00 Refill Roxanne Hood [facility] 1.2840.114 350.1.13.10 4.2.7.2.686 [id number] 044 [id number] [facility] 2022-11-25 00:00:00 2022-11-25 00:00:00 Telephone Liliane Brothers [facility] 1.2.840.114 350.1.13.10 4.2.7.2.686 [id number] 044 [id number] [facility] 2022-11-05 14:00:00 2022-11-05 14:18:57 Outpatient R PRIMITIVO BRYAN [facility] [id number] [facility] 2022-11-05 14:00:00 2022-11-05 14:18:57 Urgent Care Primitivo Bryan Unknown, Attending [facility]?TASHATammy [facility] 1..840.114 350.1.13.10 4.2.7.2.686 [id number] [facility] 2022-11-05 00:00:00 2022-11-05 00:00:00 Orders Only Doctor Unassigned, [place] [facility] 1.840.114 350.1.13.10 4.2.7.2.686 [id number] [facility] 2022-10-21 11:00:00 2022-10-21 12:16:28 Outpatient R LILIANE BROTHERS [facility] [id number] [facility] 2022-10-21 11:00:00 2022-10-21 12:16:28 Telemedici ne Visit EricLiliane jim [facility] 1..840.114 350.1.13.10 4.2.7.2.686 [id number] [id number] [facility] 2022-10-17 15:40:00 2022-10-17 15:40:00 Outpatient R LILIANE BROTHERS [facility] [id number] [facility] 2022-10-07 00:00:00 2022-10-07 00:00:00 Patient Secure Msg Liliane Brothers [facility] 1.2.840.114 350.1.13.10 4.2.7.2.686 [id number] 044 [id number] [facility] 2022-08-11 00:00:00 2022-08-11 00:00:00 Telephone Roxanne Hood [facility] 1.2.840.114 350.1.13.10 4.2.7.2.686 [id number] 044 [id number] [facility] 2022-06-18 00:00:00 2022-06-18 00:00:00 Telephone Roxanne Hood [facility] 1.2.840.114 350.1.13.10 4.2.7.2.686 [id number] 044 [id number] [facility] 2022-06-17 13:20:00 2022-06-17 14:23:52 Outpatient R LILIANE BROTHERS [facility] [id number] [facility] 2022-06-17 13:20:00 2022-06-17 14:23:52 Office Visit Liliane Brothers [facility] 1.2.840.114 350.1.13.10 4.2.7.2.686 [id number] 044 [id number] [facility] 2022-06-17 00:00:00 2022-06-17 00:00:00 Telephone Liliane Brothers [facility] 1.2.840.114 350.1.13.10 4.2.7.2.686 [id number] 044 [id number] [facility] 2022-06-16 13:30:00 2022-06-16 13:45:00 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, 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 Lab Liliane Brothers [facility] 1.2.840.114 350.1.13.10 4.2.7.2.686 [id number] [facility] 2022-06-16 13:30:00 2022-06-16 13:30:00 Outpatient R ERICBENITALILIANE RIOS [facility] [id number] [facility] 2022-05-27 11:00:00 2022-05-27 11:56:22 Outpatient R ERWIN ANANTHDONCorwin KEMI HOODBRIANDA [facility] [id number] [facility] 2022-05-27 11:00:00 2022-05-27 11:56:22 Office [facility] 1.2.840.114 350.1.13.10 4.2.7.2.686 [id number] 044 [id number] [facility] 2022-05-15 00:00:00 2022-05-15 00:00:00 Refill Liliane Brothers [facility] 1.2.840.114 350.1.13.10 4.2.7.2.686 [id number] [id number] [facility] 2022-04-14 00:00:00 2022-04-14 00:00:00 Patient Secure Msg ErwinKemifreddycorwin [facility] 1.2.840.114 350.1.13.10 4.2.7.2.686 [id number] 044 [id number] [facility] 2022-04-13 00:00:00 2022-04-13 00:00:00 Refill EricmaggieLiliane webb [facility] 1.2.840.114 350.1.13.10 4.2.7.2.686 [id number] [id number] [facility] 2022-03-14 11:05:16 2022-03-14 23:59:00 Outpatient R RADIOLOGY [facility] [id number] [facility] 2022-03-14 11:00:00 2022-03-14 23:59:00 Hospital Encounter Radiology [facility] 1.2.840.114 350.1.13.10 4.2.7.2.686 [id number] [facility] 2022-03-12 19:54:33 2022-03-12 23:59:00 Outpatient R CRUZ PEREYRA [facility] [id number] [facility] 2022-03-12 19:54:33 2022-03-12 23:59:00 Hospital Encounter Cruz Pereyra [facility] 1..840.114 350.1.13.10 4.2.7.2.686 [id number] [facility] 2022-03-12 20:20:00 2022-03-12 20:20:00 Urgent Care Cruz Pereyra [facility] 1..840.114 350.1.13.10 4.2.7.2.686 [id number] [facility] 2022-03-12 13:00:00 2022-03-12 13:00:00 Outpatient R PRIMITIVO BRYAN [facility] [id number] [facility] 2022-02-28 16:00:00 2022-02-28 16:54:30 Outpatient R LILIANE BROTHERS [facility] [id number] [facility] 2022-02-28 16:00:00 2022-02-28 16:54:30 Office Visit Liliane Brothers [facility] PROFESSIO NAL BUILDING 1.2.840.114 350.1.13.10 4.2.7.2.686 [id number] [id number] [facility] 2022-01-22 13:20:00 2022-01-22 13:20:00 Outpatient R LILIANE BROTHERS [facility] [id number] [facility] 2022-01-22 13:20:00 2022-01-22 13:20:00 Outpatient R LILIANE BROTHERS [facility] [id number] [facility] 2022-01-20 00:00:00 2022-01-20 00:00:00 Refill Liliane Brothers [facility] 1.840.114 350.1.13.10 4.2.7.2.686 [id number] 044 [id number] [facility] 2021-12-31 20:30:00 2021-12-31 20:45:00 Laboratory Only Only, Ang Db Test [facility] 1.840.114 350..13.10 4.2.7.2.686 [id number] [facility] 2021-12-31 20:30:00 2021-12-31 20:35:46 Outpatient R CRUZ PEREYRA [facility] [id number] [facility] 2021-12-18 00:00:00 2021-12-18 00:00:00 Letter (Out) Fanta Reilly [facility] 1.840.114 350.1.13.10 4.2.7.2.686 [id number] [facility] 2021-12-17 18:15:00 2021-12-17 18:37:42 Outpatient R CRUZ PEREYRA [facility] [id number] [facility] 2021-12-17 18:15:00 2021-12-17 18:30:00 Laboratory Only Only, Ang Db Test [facility] OFFICE BUILDING 1.840.114 350.1.13.10 4.2.7.2.686 [id number] [facility] 2021-12-17 00:00:00 2021-12-17 00:00:00 Patient Secure Msg Doctor Unassigned, [place] [facility] 1.2840.114 350.1.13.10 4.2.7.2.686 [id number] [id number] [facility] 2021-12-09 00:00:00 2021-12-09 00:00:00 Patient Secure Msg Doctor Unassigned, [place] [facility] 1.2840.114 350.1.13.10 4.2.7.2.686 [id number] [facility] 2021-12-07 15:18:09 2021-12-07 23:59:00 Outpatient R [facility]Y [facility] [id number] [facility] 2021-12-07 15:18:09 2021-12-07 23:59:00 Hospital Encounter Claudy, [facility] 1.2.840.114 350.1.13.10 4.2.7.2.686 [id number] [facility] 2021-12-07 15:00:00 2021-12-07 15:20:00 Urgent Care [facility] 1.2.840.114 350.1.13.10 4.2.7.2.686 [id number] 370 [id number] [facility] 2021-12-04 00:00:00 2021-12-04 00:00:00 Telephone Liliane Brothers [facility] BU[facility] 1.2.840.114 350.1.13.10 4.2.7.2.686 [id number] 044 [id number] [facility] 2021-11-29 16:20:00 2021-11-29 16:32:04 Outpatient R LILIANE BROTHERS [facility] [id number] [facility] 2021-11-29 16:20:00 2021-11-29 16:32:04 Office Visit Liliane Brothers [facility] 1.2.840.114 350.1.13.10 4.2.7.2.686 [id number] [id number] [facility] 2021-11-29 00:00:00 2021-11-29 00:00:00 Letter (Out) Clinic, [facility] Neurology [facility] 1..114 350.1.13.10 4.2.7.2.686 [id number] [facility] 2021-11-29 00:00:00 2021-11-29 00:00:00 Telephone Liliane Brothers [facility] 1..840.114 350.1.13.10 4.2.7.2.686 [id number] [id number] [facility] 2021-11-25 13:00:00 2021-11-25 13:00:00 Outpatient DILIP RINCON [facility] [id number] [facility] 2021-10-29 09:00:00 2021-10-29 09:45:00 Ancillary Visit 2, [employer] Dinorah Pereyra [facility] 1.840.114 350.1.13.10 4.2.7.2.686 [id number] [facility] 2021-10-29 09:00:00 2021-10-29 09:00:00 Outpatient R RODDY DINORAH [facility] [id number] [facility] 2021-10-29 08:00:00 2021-10-29 08:30:00 Office Visit Roddy [facility] 1.840.114 350.1.13.10 4.2.7.2.686 [id number] [facility] 2021-10-29 08:00:00 2021-10-29 08:00:00 Outpatient R PAULAPORFIRIO [facility] [id number] [facility] 2021-10-29 08:00:00 2021-10-29 08:00:00 Outpatient R DINORAH PEREYRA [facility] [id number] [facility] 2021-10-23 13:00:00 2021-10-23 14:43:04 Outpatient R LILIANE BROTHERS [facility] [id number] [facility] 2021-10-23 13:00:00 2021-10-23 14:43:04 Outpatient R LILIANE BROTHERS [facility] [id number] [facility] 2021-10-23 13:00:00 2021-10-23 14:43:04 [facility] 1..840.114 350...10 4.2.7.2.686 [id number] [facility] 2021-10-23 13:00:00 2021-10-23 13:00:00 Outpatient R LILIANE BROTHERS [facility] [id number] [facility] 2021-10-23 13:00:00 2021-10-23 13:00:00 Outpatient LILIANE FOLEY [facility] [id number] [facility] 2021-10-19 00:00:00 2021-10-19 00:00:00 Patient Secure Msg Doctor Unassigned, [place] [facility] 1..840.114 350..13.10 4.2.7.2.686 [id number] [facility] 2021-10-15 11:20:00 2021-10-15 11:40:00 Urgent Care Claudy, [facility]rell [facility] 1..840.114 350..13.10 4.2.7.2.686 [id number] 370 [id number] [facility] 2021-10-15 11:20:00 2021-10-15 11:20:00 Outpatient R DARRELL EARL [facility] [id number] [facility] 2021-10-14 16:00:00 2021-10-14 16:55:06 Outpatient R [facility] [id number] [facility] 2021-10-14 16:00:00 2021-10-14 16:55:06 Office Visit Roxanne Hood [facility] PROFESSIO NAL BUILDING 1.2.840.114 350.1.13.10 4.2.7.2.686 [id number] [facility] 2021-10-14 16:00:00 2021-10-14 16:55:06 Outpatient R ROXANNE HOOD OGECHUKWU [facility] [id number] [facility] 2021-10-08 14:15:00 2021-10-08 14:30:00 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, 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 Liliane [facility] 1.2.840.114 350.1.13.10 4.2.7.2.686 [id number] [facility] 2021-10-08 13:00:00 2021-10-08 14:07:27 Outpatient R LILIANE BROTHERS [facility] [id number] [facility] 2021-10-08 13:00:00 2021-10-08 14:07:27 Office Visit [facility] 1.2.840.114 350.1.13.10 4.2.7.2.686 [id number] [facility] 2021-10-08 13:00:00 2021-10-08 14:07:27 Outpatient R LILIANE BROTHERS [facility] [id number] [facility] 2021-10-08 13:00:00 2021-10-08 13:00:00 Outpatient R LILIANE BROTHERS [facility] [id number] [facility] 2021-09-19 00:00:00 2021-09-19 00:00:00 Patient Secure Msg Roxanne Hood [facility] NAL BUILDING 1.2.840.114 350.1.13.10 4.2.7.2.686 [id number] [id number] [facility] 2021-09-18 14:15:00 2021-09-18 14:30:00 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, 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 Roxanne Hood [facility] 1.2.840.114 350.1.13.10 4.2.7.2.686 [id number] [facility] 2021-09-18 11:30:00 2021-09-18 13:03:09 Outpatient R ROXANNE HOOD OGECHUKWU [facility] [id number] [facility] 2021-09-18 11:30:00 2021-09-18 13:03:09 Office Visit Roxanne Hood [facility] 1.2.840.114 350.1.13.10 4.2.7.2.686 [id number] [facility] 2021-08-28 17:22:36 2021-08-28 23:59:00 Outpatient PRIMITIVO SIMMONS [facility] [id number] [facility] 2021-08-28 17:22:36 2021-08-28 23:59:00 Hospital Encounter Primitivo Bryan [facility] 1.840.114 350.1.13.10 4.2.7.2.686 [id number] [facility] 2021-08-28 17:00:00 2021-08-28 17:24:36 Urgent Care Randi [facility] 1.114 350.1.13.10 4.2.7.2.686 [id number] 370 [id number] [facility] 2021-08-28 00:00:00 2021-08-28 00:00:00 Telephone Randi [facility] 1.114 350.1.13.10 4.2.7.2.686 [id number] [facility] 2021-08-24 15:20:00 2021-08-24 15:58:37 Outpatient Chelsea [facility] [id number] [facility] 2021-08-24 15:20:00 2021-08-24 15:40:00 Urgent Care Jonathan De La Fuente, [facility] 1.114 350.1.13.10 4.2.7.2.686 [id number] 370 [id number] [facility] 2021-08-22 00:00:00 2021-08-22 00:00:00 Patient Secure Msg Doctor Unassigned, [place] [facility] 1.114 350.1.13.10 4.2.7.2.686 [id number] [facility] 2021-08-19 18:20:00 2021-08-19 19:18:00 Urgent Care Nena Savage Unknown, Attending [facility] 1.114 350.1.13.10 4.2.7.2.686 [id number] [facility] 2021-08-19 18:20:00 2021-08-19 19:18:00 [facility] [id number] [facility] 2021-08-19 00:00:00 2021-08-19 00:00:00 Orders Only Doctor Unassigned, [place] [facility] 1.840.114 350.1.13.10 4.2.7.2.686 [id number] [facility] 2021-07-20 17:15:00 2021-07-20 17:33:32 Outpatient R [facility] [id number] [facility] 2021-07-20 17:15:00 2021-07-20 17:30:00 Laboratory Only Only, Ang Db Test Hussein [facility] 1.840.114 350.1.13.10 4.2.7.2.686 [id number] [facility] 2021-07-02 13:30:00 2021-07-02 15:12:48 Outpatient R [facility]O [facility] [id number] [facility] 2021-07-02 13:30:00 2021-07-02 13:45:00 Laboratory Only Only, Ang Db Yash Bryan [facility] 1.840.114 350.1.13.10 4.2.7.2.686 [id number] [facility] 2020-10-13 19:59:33 2020-10-13 23:59:00 Hospital Encounter Cruz Pereyra [facility] 1.84.114 350.1.13.10 4.2.7.2.686 [id number] [facility] 2020-10-13 19:04:43 2020-10-13 19:39:29 Urgent Care Provider, Ang [facility] Roddy [facility] 1.2.840.114 350.1.13.10 4.2.7.2.686 [id number] [facility] 2020-10-13 19:00:00 2020-10-13 19:00:00 Outpatient Chelsea [facility] [id number] [facility] 2020-07-14 19:43:26 2020-07-14 20:03:26 Laboratory Only Lab, Adc Fam Pob I RoddyAdena [facility] 1.2.840.114 350.1.13.10 4.2.7.2.686 [id number] [facility] 2020-07-14 19:40:00 2020-07-14 19:40:00 Outpatient Chelsea [facility] [id number] [facility] 2020-07-14 00:00:00 2020-07-14 00:00:00 Letter (Out) Doctor Unassigned, [place] [facility] 1.2.840.114 350.1.13.10 4.2.7.2.686 [id number] [facility] Results Test Description Test Time Test Comments Results Resul t Comments Source MR Thoracic spine wo contrast 2025-01-11 3 23:46:04 EXAMINATION: ?MR THORACIC SPINE WO CONTRAST HISTORY: Abnormal posture TECHNIQUE: Routine MRI of the thoracic spine without contrast. COMPARISON: None FINDINGS: Normal thoracic kyphosis is preserved. The thoracic vertebral bodies are normal in height and in alignment. The thoracic cord is normal in caliber and in signal intensity. Multilevel Schmorl's nodes and minimal Modic type II endplate degenerationseen. Large T10 vertebral body hemangioma seen. The background marrowsignal is otherwise unremarkable. T3-T4: There is a left subarticular disc protrusion with mild leftsubarticular zone narrowing. No high-grade spinal canal stenosis or neuralforaminal narrowing. T7-T8: There is a medium-sized central disc protrusion with mild spinalcanal stenosis and no high-grade neural foraminal narrowing. T8-T9: There is a medium-sized central disc protrusion with mild spinalcanal stenosis or neural foraminal narrowing. T9-T10: There is a small central disc protrusion with mild spinal canalstenosis and no high-grade neural foraminal narrowing. There is a posterior annular fissure seen at T10-T11. Multilevel mild to moderate facet arthrosis and ligamentum flavumthickening seen. [facility] [id number] 16:06:15* Test Item Value Reference Range Interpretation Comme nts POCT Molecular Strep (test c ode = 38938-4) Negative Negative Lab Interpretation (test cod e = 48529-0) [facility]2024-03-11 16:36:00* Test Item Value Reference Range Interpretation Comme nts HGB A1C (test code = 4548-4) 6.4 % 4.0-5.7 H ROBERT (test code = ROBERT) Reference RangesNormal: <5.7%Prediabetes: 5.7 - 6.4%Diabetes: > 6.5% Lab Interpretation (test code = 54436-2) [facility]normal [facility] [id number] 15:33:38* Test Item Value Reference Range Interpretation Comme nts IRON (test code = 4074185482) 79 ug/dL 50-160 TIBC (test code = 4375856936) 335 ug/dL 250-410 % FE SAT (test code = 9032829452) 24 % 20-50 Lab Interpretation (test cod e = 43756-7) [facility] (98706)(TOTAL CHOLESTEROL, TRIGLYCERIDES, HDL)2024-03-11 15:24:16* Test Item Value Reference Range Interpretation Comme nts CHOL (test code = 8300682999) 160 mg/dL 120-200 HDL (test code = 1892549217) 48 mg/dL >=50 L HDLC RATIO (test code = 9976193240) 3.3 <=4.5 TRIG (test code = 5948608386) 131 mg/dL 30-170 LDL CHOL (test code = 75884-6) 86 mg/dL <=160 VLDL (test code = 8528504124) 26 mg/dL 5-60 Lab Interpretation (test cod e = 58033-9) [facility] METABOLIC PANEL (36755)2024-03-11 15:24:15* Test Item Value Reference Range Interpretation Comme nts NA (test code = 6508538148) 135 mmol/L 135-145 K (test code = 8081339730) 4.2 mmol/L 3.5-5.0 CL (test code = 6166666863) 100 mmol/L 98-108 CO2 TOTAL (test code = 9154896919) 24 mmol/L 23-31 AGAP (test code = 0678692890) 11 2-16 BUN (test code = 8200889000) 12 mg/dL 7-23 GLUCOSE (test code = 5547908311) 169 mg/dL 70-110 H CREATININE (test code = 2160-0) 0.58 mg/dL 0.50-1.04 TOTAL BILI (test code = 0302975279) 2.0 mg/dL 0.1-1.1 H CALCIUM (test code = 1068437567) 9.2 mg/dL 8.6-10.6 T PROTEIN (test code = 3679908454) 7.6 g/dL 6.3-8.2 ALBUMIN (test code = 1805092845) 4.2 g/dL 3.5-5.0 ALK PHOS (test code = 7864626976) 85 U/L 34-122 ALTv (test code = 1742-6) 61 U/L 5-35 H AST(SGOT) (test code = 5824420242) 64 U/L 13-40 H eGFR (test code = 01340-9) 114.6 mL/min/1.73m2 CKD-EPI eGFR (2020). Assuming creatinine has been stable day-to-day for at least three months, the eGFR indicates Category G1 (>= 90 mL/min/1.73 m2) Lab Interpretation (test code = 04187-5) Abnormal [facility] WITH [id number] 15:12:35* Test Item Value Reference Range Interpretation Comme nts WBC (test code = 6690-2) 8.04 4.30-11.10 RBC (test code = 789-8) 4.37 3.93-5.25 HGB (test code = 718-7) 12.4 g/dL 11.6-15.0 HCT (test code = 4544-3) 37.5 % 35.7-45.2 MCV (test code = 787-2) 85.8 fL 80.6-95.5 MCH (test code = 785-6) 28.4 pg 25.9-32.8 MCHC (test code = 786-4) 33.1 g/dL 31.6-35.1 RDW-SD (test code = 88444-1) 41.6 fL 39.0-49.9 RDW-CV (test code = 788-0) 13.3 % 12.0-15.5 PLT (test code = 777-3) 305 166-358 MPV (test code = 56675-4) 9.4 fL 9.5-12.9 L NRBC/100 WBC (test code = 3603720015) 0.0 0.0-10.0 NRBC x10^3 (test code = 2556990903) See_Comment [Automated messa ge] The system which generated this result transmitted reference range: 10*3/?L. The reference range was not used to interpret this result as normal/abnormal. GRAN MAT (NEUT) % (test code = 770-8) 59.4 % IMM GRAN % (test code = 7299856547) 1.40 % LYMPH % (test code = 736-9) 29.1 % MONO % (test code = 5905-5) 5.7 % EOS % (test code = 713-8) 3.5 % BASO % (test code = 706-2) 0.9 % GRAN MAT x10^3(ANC) (test code = 4542716804) 4.78 10*3/uL 1.88-7.09 IMM GRAN x10^3 (test code = 6893590146) 0.11 10*3/uL 0.00-0.06 H LYMPH x10^3 (test code = 731-0) 2.34 10*3/uL 1.32-3.29 MONO x10^3 (test code = 742-7) 0.46 10*3/uL 0.33-0.92 EOS x10^3 (test code = 711-2) 0.28 10*3/uL 0.03-0.39 BASO x10^3 (test code = 704-7) 0.07 10*3/uL 0.01-0.07 Lab Interpretation (test code = 81298-7) [facility]normal [facility] CenterV[facility] D, [id number] 09:49:12* Test Item Value Reference Range Interpretation Comme nts VIT D 25OH (test code = 34021-7) 15 ng/mL 25-80 L ROBERT (test code = ROBERT) Deficiency: <20 ng/mLInsufficiency: 20-24 ng/mLOptimal: 25-80 ng/mL Lab Interpretation (test code = 97116-0) [facility]normal [facility] CenterTHY[facility]ID STIMULATING [id number] 23:47:51 * Test Item Value Reference Range Interpretation Comme nts TSH (test code = 0490017517) 1.65 See_Comment [Automated Kaymu.pka ge] The system which generated this result transmitted reference range: 0.45 - 4.70 mIU/L. The reference range was not used to interpret this result as normal/abnormal. Lab Interpretation (test code = 90827-4) Normal [facility] [id number] 23:34:30* Test Item Value Reference Range Interpretation Comme nts FREE T4 (test code = 7501434762) 1.26 See_Comment [Automated Kaymu.pka ge] The system which generated this result transmitted reference range: 0.78 - 2.20 ng/dL:. The reference range was not used to interpret this result as normal/abnormal. Lab Interpretation (test code = 23966-5) Normal [facility] [id number] 23:33:49* Test Item Value Reference Range Interpretation Comme nts FREE T3 (test code = 1733160205) 4.57 pg/mL 2.77-5.27 Lab Interpretation (test cod e = 44833-9) Normal [facility]. METABOLIC PANEL (04019)2023-03-24 23:18:28* Test Item Value Reference Range Interpretation Comme nts NA (test code = 5095497787) 136 mmol/L 135-145 K (test code = 6329374405) 4.6 mmol/L 3.5-5.0 CL (test code = 8142066620) 105 mmol/L 98-108 CO2 TOTAL (test code = 0053525474) 24 mmol/L 23-31 AGAP (test code = 5168700118) 7 2-16 BUN (test code = 1268975385) 11 mg/dL 7-23 GLUCOSE (test code = 9717135025) 170 mg/dL 70-110 H CREATININE (test code = 1634709488) 0.65 mg/dL 0.50-1.04 TOTAL BILI (test code = 5583180576) 0.5 mg/dL 0.1-1.1 CALCIUM (test code = 5962743028) 8.8 mg/dL 8.6-10.6 T PROTEIN (test code = 4028429861) 6.9 g/dL 6.3-8.2 ALBUMIN (test code = 9293617789) 3.9 g/dL 3.5-5.0 ALK PHOS (test code = 6362461031) 86 U/L 34-122 ALTv (test code = 1742-6) 44 U/L 5-35 H AST(SGOT) (test code = 1651338996) 51 U/L 13-40 H eGFR (test code = 6598348973) 99.5 mL/min/1.73m2 ROBERT (test code = ROBERT) Association of Glomerular Filtration Rate (GFR) and Staging of Kidney Disease* + --+ --+ ------+| GFR (mL/min/1.73 m2) ?| With Kidney Damage ?| ?Without Kidney Damage+ --------+ --------+ +| ?>90 ?| ?Stage one ?| ? Normal ?+ ---+ ---+ -------+| ?60-89 ?| ?Stage two ?| ? Decreased GFR ? + --+ --+ ------+| ?30-59 ?| ?Stage three ?| ? Stage three ? + --+ --+ ------+| ?15-29 ?| ?Stage four ? | ? Stage four ?+ ---+ ---+ -------+| ?<15 (or dialysis) ? ?| ?Stage five ? | ? Stage five ?+ ---+ ---+ -------+ *Each stage assumes the associated GFR level has been in effect for at least three months. ?Stages 1 to 5, with or without kidney disease, indicate chronic kidney disease. Notes: Determination of stages one and two (with eGFR >59mL/min/1.73 m2) requires estimation of kidney damage for at least three months as defined by structural or functional abnormalities of the kidney, manifested by either:Pathological abnormalities or Markers of kidney damage (including abnormalities in the composition of the blood or urine or abnormalities in imaging tests). Lab Interpretation (test code = 31606-5) [facility]normal [facility] (A1C)2023-03-24 22:24:39* Test Item Value Reference Range Interpretation Comme nts HGB A1C (test code = 4548-4) 6.4 % 4.0-5.7 H ROBERT (test code = ROBERT) Reference RangesNormal: <5.7%Prediabetes: 5.7 - 6.4%Diabetes: > 6.5% Lab Interpretation (test code = 75105-8) [facility]normal [facility] WITH [id number] 21:54:10* Test Item Value Reference Range Interpretation Comme nts WBC (test code = 6690-2) 7.61 See_Comment [Automated goOutMap] The system which generated this result transmitted reference range: 4.30 - 11.10 10*3/?L. The reference range was not used to interpret this result as normal/abnormal. RBC (test code = 789-8) 4.22 See_Comment [Automated Kaymu.pka H[employer]it] The system which generated this result transmitted reference range: 3.93 - 5.25 10*6/?L. The reference range was not used to interpret this result as normal/abnormal. HGB (test code = 718-7) 9.4 g/dL 11.6-15.0 L HCT (test code = 4544-3) 30.7 % 35.7-45.2 L MCV (test code = 787-2) 72.7 fL 80.6-95.5 L MCH (test code = 785-6) 22.3 pg 25.9-32.8 L MCHC (test code = 786-4) 30.6 g/dL 31.6-35.1 L RDW-SD (test code = 95743-5) 41.6 fL 39.0-49.9 RDW-CV (test code = 788-0) 16.1 % 12.0-15.5 H PLT (test code = 777-3) 353 See_Comment [Automated messa ge] The system which generated this result transmitted reference range: 166 - 358 10*3/?L. The reference range was not used to interpret this result as normal/abnormal. MPV (test code = 35247-3) 9.3 fL 9.5-12.9 L NRBC/100 WBC (test code = 3414585441) 0.0 See_Comment [Automated me ssage] The system which generated this result transmitted reference range: 0.0 - 10.0 /100 WBCs. The reference range was not used to interpret this result as normal/abnormal. NRBC x10^3 (test code = 5526493331) See_Comment [Automated messa ge] The system which generated this result transmitted reference range: 10*3/?L. The reference range was not used to interpret this result as normal/abnormal. GRAN MAT (NEUT) % (test code = 770-8) 60.0 % IMM GRAN % (test code = 0890883226) 1.10 % LYMPH % (test code = 736-9) 30.0 % MONO % (test code = 5905-5) 6.0 % EOS % (test code = 713-8) 2.1 % BASO % (test code = 706-2) 0.8 % GRAN MAT x10^3(ANC) (test code = 9960339056) 4.57 10*3/uL 1.88-7.09 IMM GRAN x10^3 (test code = 4208536989) 0.08 10*3/uL 0.00-0.06 H LYMPH x10^3 (test code = 731-0) 2.28 10*3/uL 1.32-3.29 MONO x10^3 (test code = 742-7) 0.46 10*3/uL 0.33-0.92 EOS x10^3 (test code = 711-2) 0.16 10*3/uL 0.03-0.39 BASO x10^3 (test code = 704-7) 0.06 10*3/uL 0.01-0.07 Lab Interpretation (test code = 01529-6) Abnormal [facility] URINALYSIS W SPECIFIC [id number] 18:14:00* Test Item Value Reference Range Interpretation Comme nts POCT U SP GRAV (test code = 3255) 1.020 mg/dl 1.005-1.025 POCT PH U (test code = 3254) 6 mg/dl 5-8 POCT U LEUK EST (test code = 3263) Trace Negative - Negative A POCT U NIT (test code = 3262) Negative Negative - Negati ve POCT U PROT (test code = 3259) Negative Negative - Negative POCT U GLU (test code = 3256) Negative Negative - Negati ve POCT U KETONE (test code = 3258) Negative Negative - Negative POCT U UROBILI (test code = 3260) Normal 0.2-1 POCT U BILI (test code = 3261) Negative Negative - Negative POCT U BLD (test code = 3257) about 50 Negative - Negati ve A POCT U COLOR (test code = 3266) Yellow POCT U APPEAR (test code = 3267) Hazy A Lab Interpretation (test cod e = 67896-7) Abnormal [facility] URINALYSIS W SPECIFIC [id number] 18:14:00* Test Item Value Reference Range Interpretation Comme nts POCT U SP GRAV (test code = 3255) 1.020 mg/dl 1.005-1.025 POCT PH U (test code = 3254) 6 mg/dl 5-8 POCT U LEUK EST (test code = 3263) Trace Negative - Negative A POCT U NIT (test code = 3262) Negative Negative - Negati ve POCT U PROT (test code = 3259) Negative Negative - Negative POCT U GLU (test code = 3256) Negative Negative - Negati ve POCT U KETONE (test code = 3258) Negative Negative - Negative POCT U UROBILI (test code = 3260) Normal 0.2-1 POCT U BILI (test code = 3261) Negative Negative - Negative POCT U BLD (test code = 3257) about 50 Negative - Negati ve A POCT U COLOR (test code = 3266) Yellow POCT U APPEAR (test code = 3267) Hazy A Lab Interpretation (test cod e = 76212-8) Abnormal [facility] Notes Date/Time Note Provider Source 2025-03-09 13:51:24 Copied from [facility] #[id number]. Topic: Clinical - Medical Advice >> Mar 09, 2025 1:49 PM Patient Research Manager wrote: Pt called requesting to speak with a nurse. Pt isn't sure why dose was increased and was told by pharmacy to follow up with PCP. Eli Torres [facility] 2025-03-09 13:37:07 Copied from [facility] #[id number]. Topic: Clinical - Order >> Mar 09, 2025 1:34 PM Patient Research Manager wrote: Nena Peterson (44 year old female) is calling to request refill(s) for tirzepatide 5 mg/0.5 mL subcutaneous injection pen Please send medication(s) to: [facility] - [address] [place] [address], [address] [address] Thank you! [facility] 2025-02-08 15:40:03 Images from the original note were not included. Needs to be resent. A warning message up for a different strength Notes: phentermine-topiramate (QSYMIA) 3.75-23 mg per capsule Possible duplicate: Hover to review recent actions on this medication Sig: Take 1 capsule by mouth in the morning. 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; Fatigue, unspecified type Last ordered: 5 days ago (02/03/2025) by Roxanne Hood NP Last dispensed: Not dispensed Rx #: [id number] Pharmacy comment: Please send to [facility] on [address] in [place], [place],, our pharmacy is not contracted for this med Provider Review Required Ydmjgq7102/08/2025 02:38 PM Protocol Details This refill cannot be delegated Valid encounter within last 12 months To be filled at: [facility] - [address] [place] [address], [address] Last Refilled: 02/03/25 Recent Visits Date Type Provider Dept 02/03/25 Office Visit Roxanne Hood NP [facility] 12/20/24 Office Visit Roxanne Hood NP [facility] 02/24/24 Office Visit Roxanne Hood NP [facility] 12/22/23 Office Visit Roxanne Hood NP [facility] Showing recent visits within past 540 days with a meds authorizing provider and meeting all other requirements Future Appointments No visits were found meeting these conditions. Showing future appointments within next 150 days with a meds authorizing provider and meeting all other requirements [facility] 2025-02-03 14:45:00 Images from the original note were not included. Venipuncture collection performed by clean technique on the right anticubitus. Total of 1 attempts were made. Slight pressure and a bandage/dressing were applied to the site(s). The patient experienced no complications. The following specimens were processed according to instructions and sent to [facility] laboratories per lab order on 02/03/2025: LT BLUE SST 1 RED LAV 2 PPT DK GREEN (LiHep) DK GREEN (SodH) FARRIS DK BLUE (K2) DK BLUE (S) ACD Blood Culture NIPT/NTD [facility] 2025-01-30 15:32:17 PA submitted and approved. Yue Esposito RN [facility] 2025-01-30 14:47:45 Images from the original note were not included. Joycelyn West [facility] 2025-01-30 12:06:43 Contacted patient, verified name and . Informed patient that labs need to be checked, and an EKG needs to be performed for alternative medications, but that contrave has been prescribed to try in the mean time. Appointment scheduled for 02/03/2025 at 1030 for EKG and to discuss alternative medications with LUIGI Landers. Yue Esposito RN [facility] 2025-01-30 10:35:55 Addended by: ROXANNE HOOD NP on: 01/30/2025 10:35 AM Modules accepted: Orders Counts include 234 beds at the [facility] 2025-01-30 10:26:43 Recommend patient completing labs for updated A1C. Phentermine and Qysmia require EKG prior to initiation. Can start contrave meanwhile. Counts include 234 beds at the [facility] 2025-01-30 09:52:28 Routing to provider. IT Yue Esposito RN [facility] 2025-01-30 09:12:17 Gladys Hernandez was not approved by insurance due to only being covered for T2DM. I did attempt Zepbound, but due to having [employer] insurance, it is not covered. I did send Ms. Peterson a [employer] message to go over this determination and let her know the cost with the copay card. The covered medications are phentermine, Contrave, and Qsymia. Please let me know if there are any questions or concerns. Thank you [facility] 2025-01-19 10:33:11 Patient requesting weight loss medication. Routing to provider for review. Yue Esposito RN [facility] 2024-12-12 13:46:57 Images from the original note were not included. Routed to provider for review. Unable to refill per ambulatory refill guidelines. Notes: Name from pharmacy: BUSPIRONE 5MG TABLETS Will file in chart as: BUSPIRONE 5 mg tablet Sig: TAKE 1 TABLET BY MOUTH IN THE MORNING AND IN THE EVENING Disp: 180 tablet Refills: 1 (Pharmacy requested: Not specified) Start: 12/10/2024 Class: eRX For: Anxiety Last ordered: 7 months ago (05/02/2024) by Roxanne Hood NP Last refill: 09/12/2024 Rx #: [id number]|0|1 Provider Review Required Gpmgrh0512/10/2024 10:19 PM Protocol Details This refill cannot be delegated Valid encounter within last 12 months To be filled at: [id number] - [place], [place] - [address] [facility] [employer] Last Refilled: 11/2024 Recent Visits Date Type Provider Dept 02/24/24 Office Visit Roxanne Hood NP [facility] 12/22/23 Office Visit Roxanne Hood NP [facility] Showing recent visits within past 540 days with a meds authorizing provider and meeting all other requirements Future Appointments No visits were found meeting these conditions. Showing future appointments within next 150 days with a meds authorizing provider and meeting all other requirements Rebecca Garcia MA [facility] 2024-05-02 11:27:48 Images from the original note were not included. Last OV:02/24/24 with LUIGI Landers Last Refill:02/24/24 prescribed by LUIGI Landers Last Labs Pertaining to Med:n/a Future Appt: Name from pharmacy: BUSPIRONE 5MG TABLETS Will file in chart as: BUSPIRONE 5 mg tablet Sig: TAKE 1 TABLET BY MOUTH IN THE MORNING AND IN THE EVENING Disp: 60 tablet Refills: 1 (Pharmacy requested: Not specified) Start: 05/01/2024 Class: eRX For: Anxiety Last ordered: 2 months ago (02/24/2024) by Roxanne Hood NP Last refill: 03/22/2024 Rx #: [id number]|1|0|1 Provider Review Required Cieenp8505/01/2024 11:13 AM Protocol Details This refill cannot be delegated Valid encounter within last 12 month Routed to provider for review. Unable to refill per ambulatory refill guidelines. Ivy Lazo RN [facility] 2024-03-22 14:10:52 90 day refill send per Ambulatory protocol. 03/11/2024 CREATININE 0.50 - 1.04 mg/dL 0.58 K 3.5 - 5.0 mmol/L 4.2 NA 135 - 145 mmol/L 135 Recent Visits Date Type Provider Dept 02/24/24 Office Visit Roxanne Hood NP [facility] 12/22/23 Office Visit Roxanne Hood NP [facility] 04/20/23 Office Visit Roxanne Hood NP [facility] 04/03/23 Office Visit Rebecca Pang FNP [facility] 03/24/23 Office Visit Liliane Brothers MD [facility] 02/20/23 Office Visit Roxanne Hood NP [facility] Showing recent visits within past 540 days with a meds authorizing provider and meeting all other requirements Future Appointments No visits were found meeting these conditions. Showing future appointments within next 150 days with a meds authorizing provider and meeting all other requirements [facility] 2024-03-22 12:56:26 Images from the original note were not included. Rula Velasquez [facility] 2024-03-11 09:00:00 Images from the original note were not included. Pt refused stool samples. Venipuncture collection performed by clean technique on the left anticubitus. Total of 1 attempts were made. Slight pressure and a bandage/dressing were applied to the site(s). The patient experienced no complications. The following specimens were processed according to instructions and sent to [facility] laboratories per lab order on 03/11/2024: LT BLUE SST 1 RED LAV 2 PPT DK GREEN (LiHep) DK GREEN (SodH) FARRIS DK BLUE (K2) DK BLUE (S) ACD Blood Culture NIPT/NTD H. Pylori was completed. First breathe @ 0859. Drink provided. Second Breathe @ 0916. [facility] 2024-03-11 09:00:00 Addended by: BISI VALENTINO on: 03/11/2024 03:36 PM Modules accepted: Orders IT Bisi Valentino [facility] 2024-02-24 11:00:00 Addended by: ROXANNE HOOD NP on: 02/28/2024 06:56 AM Modules accepted: Level of Service [facility] 2023-03-27 10:32:10 Formatting of this n ote might be different from the original. PA sent to plan via cover my meds. Nena Peterson Farah: [id number] - PA help? Call us at Status Sent to [facility] Nadine Bueno RN [facility] 2023-03-26 16:21:29 Formatting of this n ote might be different from the original. Prior authorization needed for Vyvanse 10MG Capsules. Diana [facility] 2023-03-26 15:58:32 Formatting of this n ote might be different from the original. Nena Peterson Farah: [id number] - NAFISA - Rx #: [id number] help? 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 Nadine Bueno RN [facility] 2023-03-26 10:14:05 Formatting of this n ote might be different from the original. Images from the original note were not included. Diana Martinez [facility] 2023-03-25 10:26:53 Formatting of this n ote might be different from the original. Prior authorization started for Dicofenac Sodium 1% gel Farah: BMALWUVC [facility] 2023-03-24 16:15:00 Formatting of this n ote is different from the original. Images from the original note were not included. Venipuncture collection performed by clean technique on the right anticubitus. Total of 1 attempts were made. Slight pressure and a bandage/dressing were applied to the site(s). The patient experienced no complications. The following specimens were processed according to instructions and sent to [facility] laboratories per lab order on 03/24/2023 : LT BLUE SST 2 RED LAV 2 PPT DK GREEN (LiHep) DK GREEN (SodH) FARRIS DK BLUE (K2) DK BLUE (S) ACD Blood Culture NIPT/NTD Patient has been identified by and name and was provided with cup, antiseptic towelette, and clean catch instructions. 1 urine specimen(s) sent. Unpreserved Urine Culture 1 Aptima tube Other urine 32 Inez Pak [facility] 2023-03-23 09:08:44 Formatting of this n ote might be different from the original. Received [facility] approval back from provider, placed in to be scanned folder. Nena Kelly MA [facility] 2023-03-03 11:25:17 Formatting of this n ote might be different from the original. [facility] sent approval for CT of abdomen and pelvis w/o contrast. Placed in providers folder for review. Samia Canas RN [facility]
[2025-05-01] MEDS ORDERED: ALBUTEROL 2.5 MG/3 ML NEB SOL ONE (00:56)
[2025-05-01] MEDS ORDERED: IPRATROPIUM BROM 0.5MG/2.5ML ONE (00:56)
--- NOTE | 2025-05-01 03:03 | ER ---
Nurse's Notes [facility] Name: Nena Peterson Age: 44 yrs Sex: Female : 1980 Arrival Date: 05/01/2025 Time: 00:34 Bed 6 Private MD: Diagnosis: Reactive airway disease;Influenza A Presentation: 05/01 00:46 Chief complaint: Patient states: I have flu A and every time i cough it feels like it kd3 is difficult to take a deep breath in. I called the nurse hot line through my insurance and they told me to come to the ER. I have been sick since Thursday. Coronavirus screen: Vaccine status: Patient reports receiving the 2nd dose of the covid vaccine. Ebola Screen: No symptoms or risks identified at this time. Initial Sepsis Screen: Does the patient meet any 2 criteria? No. Patient's initial sepsis screen is negative. Does the patient have a suspected source of infection? No. Patient's initial sepsis screen is negative. Risk Assessment: Do you want to hurt yourself or someone else? Patient reports no desire to harm self or others. Onset of symptoms was April 25, 2025. 00:46 Method Of Arrival: Ambulatory kd3 00:46 Acuity: KELLY 4 kd3 Triage Assessment: 00:48 General: Appears in no apparent distress. Behavior is calm, cooperative. Pain: kd3 Complains of pain in uvula, left aspect of posterior pharynx and right aspect of posterior pharynx. Respiratory: Reports shortness of breath on exertion Onset: The symptoms/episode began/occurred gradually, the patient has moderate shortness of breath. 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 - Infectious Disease History:: Denies. - Social history:: Smoking status: Patient denies any tobacco usage or history of. Screenin:[address] [facility] ED Fall Risk Assessment (Adult) History of falling in the last 3 months, kd3 including since admission No falls in past 3 months (0 pts) Confusion or Disorientation No (0 pts) Intoxicated or Sedated No (0 pts) Impaired Gait No (0 pts) Mobility Assist Device Used No (0 pt) Altered Elimination No (0 pt) Score/Fall Risk Level 0 - 2 = Low Risk Maintained a safe environment. Abuse screen: Denies threats or abuse. Denies injuries from another. Nutritional screening: No deficits noted. Tuberculosis screening: No symptoms or risk factors identified. Assessment: 03:39 General: Appears in no apparent distress. Behavior is calm, cooperative. Neuro: Level kd3 of Consciousness is awake, alert, obeys commands, Oriented to person, place, time, situation. Cardiovascular: Rhythm is regular. Respiratory: Airway is patent Trachea midline Respiratory effort is even, unlabored, Breath sounds are clear bilaterally. Vital Signs: 00:46 BP 184 / 96; Pulse 64; Resp 19; Temp 98.2(O); Pulse Ox 100% on R/A; Weight 132.9 kg; kd3 Height 5 ft. 6 in. ; 03:41 BP 150 / 73; Pulse 70; Resp 16; Pulse Ox 98% on R/A; kd3 00:46 Body Mass Index 47.29 (132.90 kg, 167.64 cm) kd3 ED Course: 00:38 Patient arrived in ED. gm2 00:41 April Chapin PA-C is PHCP. sb4 00:41 Eric Stevens MD is Attending Physician. sb4 00:46 Alice Pugh, LISA is Primary Nurse. kd3 00:48 Triage completed. kd3 00:48 Arm band placed on right wrist. kd3 01:41 Chest Pa And Lat (2 Views) XRAY In Process Unspecified. EDMS 03:40 Patient has correct armband on for positive identification. Provided Education on: flu .kd3 03:40 No provider procedures requiring assistance completed. IV discontinued, intact, kd3 bleeding controlled, No redness/swelling at site. Pressure dressing applied. Administered Medications: 01:02 Drug: DuoNeb Nebulize (3:1) (2.5 mg - 0.5 mg) 3 ml Nebulizer once Route: Nebulizer; kd3 Medication: 03:41 VIS not applicable for this client. kd3 Outcome: 03:03 Discharge ordered by . sb4 03:40 Discharged to home ambulatory, kd3 03:40 Condition: stable 03:40 Discharge instructions given to patient, Instructed on discharge instructions, follow up and referral plans. medication usage, Demonstrated understanding of instructions, follow-up care, medications, Prescriptions given X 2, 03:42 Patient left the ED. kd3 Signatures: Dispatcher [employer] EDAlice Chawla RN RN kd3 April Chapin, PA-C PA-C sb4 Estefany Recinos 2
--- NOTE | 2025-05-01 03:03 | EDPHYS ---
Physician Documentation [facility] Name: Nena Peterson Age: 44 yrs Sex: Female : 1980 Arrival Date: 05/01/2025 Time: 00:34 Bed 6 Private MD: ED Physician Eric Stevens HPI: 05/01 03:37 This 44 yrs old Female presents to ER via Ambulatory with complaints of Breathing sb4 Difficulty. 03:37 Patient states that she has been experiencing coughing fits that make her feel very sb4 short of breath. She states that she was diagnosed with influenza A few days ago. She has been taking saja-hij-dcskvye medications which have helped her symptoms but she was concerned about the cough making her feel like she cannot catch her breath. Denies any chronic lung problems, no asthma or COPD. Does not smoke. 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 - Infectious Disease History:: Denies. - Social history:: Smoking status: Patient denies any tobacco usage or history of. ROS: 03:37 Constitutional: Negative for fever, chills, and weight loss, sb4 03:37 Respiratory: Positive for cough, shortness of breath, 03:37 All other systems are negative, Exam: 03:37 Constitutional: This is a well developed, well nourished patient who is awake, alert, sb4 and in no acute distress. Head/Face: Normocephalic, atraumatic. Eyes: Extra-ocular motions intact. Periorbital areas with no swelling, redness, or edema. ENT: Mucous membranes moist. Cardiovascular: Regular rate and rhythm with a normal S1 and S2. Respiratory: No increased work of breathing, no retractions or nasal flaring. Skin: Warm, dry with normal turgor. Normal color with no rashes, no lesions, and no evidence of cellulitis. 03:37 Respiratory: the patient does not display signs of respiratory distress, Breath sounds: are clear throughout, Vital Signs: 00:46 BP 184 / 96; Pulse 64; Resp 19; Temp 98.2(O); Pulse Ox 100% on R/A; Weight 132.9 kg; kd3 Height 5 ft. 6 in. ; 03:41 BP 150 / 73; Pulse 70; Resp 16; Pulse Ox 98% on R/A; kd3 00:46 Body Mass Index 47.29 (132.90 kg, 167.64 cm) kd3 MDM: 00:41 Medical Screening Exam initiated sb4 03:37 Differential diagnosis: asthma, Bronchitis Chronic Obstructive Pulmonary Disease sb4 pneumonia, reactive airway disease. Antibiotic administration: Not indicated, the patient does not have an appreciated infiltrate, the patient has a suspected viral illness. Data interpreted: Pulse oximetry: on room air is 100 %. Interpretation: normal. Plan: O2 by NC applied. Data reviewed: vital signs, nurses notes, radiologic studies, and as a result, I will discharge patient. Independent interpretation of the following test(s) in the Emergency Department X-Ray: My interpretation is Chest x-ray images -no evidence of pneumonia. Counseling: I had a detailed discussion with the patient and/or guardian regarding the historical points, exam findings, and any diagnostic results supporting the discharge/admit diagnosis, the presence of at least one elevated blood pressure reading (>120/80) during this emergency department visit, radiology results, the need for outpatient follow up, for definitive care, to return to the emergency department if symptoms worsen or persist or if there are any questions or concerns that arise at home. 05/01 00:46 Order name: Chest Pa And Lat (2 Views) XRAY sb4 Administered Medications: 01:02 Drug: DuoNeb Nebulize (3:1) (2.5 mg - 0.5 mg) 3 ml Nebulizer once Route: Nebulizer; kd3 Disposition: 05/02 00:45 Co-signature as Attending Physician, Eric Stevens MD I agree with the assessment sp4 and plan of care. I reviewed the patient's care provided by the Advanced Practice Provider and agree with the diagnosis and treatment plan. Disposition Summary: 05/01/25 03:03 Discharge Ordered Notes: Location: Home sb4 Problem: new sb4 Symptoms: have improved sb4 Condition: Stable sb4 Diagnosis - Reactive airway disease sb4 - Influenza A sb4 Followup: sb4 - With: Emergency Department - When: As needed - Reason: Trouble breathing, Worsening of condition Discharge Instructions: - Discharge Summary Sheet sb4 - Influenza, Adult, Afty-ql-Kuno sb4 - Cough, Adult, [id number] sb4 Forms: - Patient Portal Instructions sb4 - Leadership Thank You Letter sb4 Prescriptions: - Prednisone 20 mg Oral Tablet - take 1 tablet ORAL route once daily for 5 days; 5 tablet; Refills: 0, Product sb4 Selection Permitted Signatures: Dispatcher [employer] Alice Lundberg RN RN kd3 April Chapin PA-C PASarithaC sb4 Eric Stevens MD MD sp4
--- NOTE | 2025-05-01 03:35 | RAD REPORT ---
XR CHEST 2 VIEWS CLINICAL INDICATION: Cough; Dyspnea COMPARISON: None FINDINGS: LUNGS/PLEURAL SPACES: Lungs are clear. No pleural effusion. No pneumothorax. HEART/MEDIASTINUM: Within normal range. BONES/UPPER ABDOMEN/SOFT TISSUES: Unremarkable. IMPRESSION: Negative chest exam. Electronically signed by: Cindy Fournier MD 05/01/2025 02:38 AM CDT RP Due to temporary technical issues with the PACS/[employer] reporting system, reports are being ayan d by the in-house radiologist without review as a courtesy to ensure prompt reporting the interpreting radiologist is fully responsible for the content of the report. Transcribed Date/Time: 05/01/2025 3:34 AM
[2025-05-01 09:02] VITALS: TEMP 98.2
[2025-05-01 09:03] VITALS: O2SAT 98
[2025-05-01 09:10] VITALS: BP 116/69
== END 2025-05-01 03:42 | disposition home or self-care (01) ==
LOC: ER 00:34
DX: J10.1 Influenza due to other identified influenza virus with other respiratory manifestations (principal); J45.909 Unspecified asthma, uncomplicated
CPT/HCPCS: 71046; 99284; J7613; J7644